=== PATIENT | female | born 1975 | race Caucasian/White ===

== ENCOUNTER 2020-07-11 10:58 | Emergency (ER) | payer MEDICAID, SELFPAY ==
[2020-07-11] VITALS (7 sets, daily range): BP systolic 117–132; BP diastolic 52–77; PULSE 75–90; RESP 16–20; TEMP 36.4; O2SAT 99–100; BMI 29.1
--- NOTE | 2020-07-11 | ECG_ITS ---
Test Reason : DIZZY Blood Pressure : / mmHG Vent. Rate : 084 BPM Atrial Rate : 084 BPM P-R Int : 188 ms QRS Dur : 066 ms QT Int : 346 ms P-R-T Axes : 070 021 049 degrees QTc Int : 408 ms Normal sinus rhythm Normal ECG When compared with ECG of 08-JUN-2010 14:21, No significant changes seen Referred By: Yvonne Partida Electronically Signed By:HIREN PIZARRO
--- NOTE | 2020-07-11 11:24 | CT_ITS ---
EXAMINATION: CT HEAD WITHOUT CONTRAST CLINICAL INFORMATION: Sudden onset dizziness. COMPARISON: None TECHNIQUE: Contiguous axial imaging was performed from the skull base to vertex without intravenous administration of contrast. This CT examination was performed using dose optimization techniques as appropriate, variously including the following: *Automated exposure control *Adjustment of mA and/or kV according to patient size (this includes techniques or standardized protocols for targeted exams where dose is matched to indication/reason for exam; i.e. extremities or head) *Use of iterative reconstruction technique DLP: 611 mGy-cm FINDINGS: There is no evidence of acute intracranial hemorrhage or territorial infarction. No abnormal mass effect or midline shift is seen. Cain to white matter differentiation is well preserved. No extra-axial fluid collections are identified. The ventricles are normal in size. There is no abnormal attenuation within the brain parenchyma. The osseous structures and soft tissues are normal. The mastoid air cells and visualized portions of the paranasal sinuses are well aerated. CT/CT head/brain wo con IMPRESSION: No acute intracranial pathology.
--- NOTE | 2020-07-11 11:54 | ED.GENADULT ---
HPI - General Adult General Chief complaint: Weakness Stated complaint: SYNCOPAL EPISODE W/FALL, DIZZY @ THIS TIME Time Seen by Provider: 07/11/20 11:15 Source: patient Mode of arrival: ambulatory Limitations: no limitations History of Present Illness HPI narrative: Patient comes to the emergency room complaining feeling weak and dizzy. Patient states that she was feeling completely normal prior to arrival, she was doing her laundry, had a very sudden onset of dizziness and leg weakness. Patient states her legs gave out. Patient complaining of blurry vision as well. Prior to this incident, patient denied any chest pain, no shortness of breath. Patient states this is the 1st time that it happens. Patient states that trying to stand up makes her very dizzy Related Data Previous Rx's Medication Instructions Recorded meclizine 25 mg PO TID PRN #10 tab 07/11/20 Allergies Allergy/AdvReac Type Severity Reaction Status Date / Time codeine [CODEINE] Allergy Severe VOMITING, Verified 07/11/20 11:14 FEVER,CHILLS Review of Systems Review of Systems: Constitutional : No Weight loss, No Fever, No Chills, No Night Sweats, No Fatigue, No Malaise ENT/Mouth : No Hearing loss, No Ear Pain, No Nasal Congestion, No Sinus Pain, No Hoarseness, No sore throat, No Rhinorrhea, No Swallowing Difficulty Eyes: No Eye Pain, No Swelling, No Redness, No Foreign Body, No Discharge, No Vision Changes Cardiovascular : No Chest Pain, No SOB, No Dyspnea on Exertion, No Orthopnea, No Edema, No Palpitations Respiratory : No Cough, No Sputum, No Wheezing, No Smoke Exposure, No Dyspnea Gastrointestinal : No Nausea, No Vomiting, No Diarrhea, No Constipation, No abdominal Pain, No Hematochezia, No Melena Genitourinary : no irregular bleeding, No Dysuria, No Urinary Frequency, No Hematuria, No Urinary Incontinence, No Urgency, No Flank Pain, No Urinary Flow Changes, No Hesitancy Musculoskeletal : No joint pain, No Myalgias, No Joint Swelling Skin : No Skin Lesions, No rash Neuro : Patient complaining of bilateral leg weakness, no numbness or tingling, complaining of dizziness, room spinning, states is unable to stand Psych : No Anxiety/Panic, No Depression, No SI/HI/AH/VH, No Social Issues, Heme/Lymph: No Bruising, No Bleeding,No Lymphadenopathy Endocrine : No Polyuria, No Polydipsia, No Temperature Intolerance [facility] Past Medical History Medical History Anxiety Asthma Bipolar disorder Chronic post-traumatic stress disorder (PTSD) Depression Hypertension No known health problems Social History Social History Smoking Status: Current every day smoker Use of substances other than those prescribed or required for medical reasons: Yes Substance Use Type: Marijuana Advance Directives: No Advance Directives Information Provided: Yes Physical Exam Vital Signs: Vital Signs: Last Vital Signs Temp 97.5 F 07/11/20 11:09 Pulse 75 07/11/20 16:00 Resp 16 07/11/20 16:00 BP 117/61 07/11/20 16:00 Pulse Ox 99 07/11/20 16:00 Body Mass Index 29.1 Appearance: Alert. Oriented X3. No acute distress. Eyes: Pupils equal, round and reactive to light, no nystagmus ENT: Pharynx normal. Neck: Normal inspection. Neck supple. No lymph nodes noted. No crepitus CVS: Normal heart rate and rhythm. Pulses normal. Normal S1 and S2 Respiratory: No respiratory distress. Breath sounds normal. No Wheezing. No rales Abdomen: Soft and nontender. No rigidity. No distention. good BS x4 Skin: Skin warm and dry. Normal skin color. Normal skin turgor. Extremities: No lower extremity edema. No lower extremity edema. No Lacerations. No Rash Neuro: Oriented X 3. No motor deficit. No sensory deficit. Moving all extermities. No slurred speech, no nystagmus, patient is able to sit in bed with good truncal stability, patient can not stand for a few seconds, then she falls back in bed stating that she is dizzy, no nystagmus observed Course Course Course Narrative: I discussed the CT scan and MRI with the patient, that her vision is now at baseline,now she is able to walk with steady gait. Patient no longer feeling dizzy. Orthostatics were negative. Medical Decision Making Lab Data Result diagrams: 07/11/20 11:47 07/11/20 11:47 Labs: Lab Results 07/11/20 07/11/20 07/11/20 Range/Units 11:47 11:47 11:47 WBC 4.1 L (4.8-10.8) X10*3/uL RBC 3.81 L (4.20-5.50) X10*6/uL Hgb 12.2 (12.0-16.0) g/dl Hct 37.3 (37-47) % MCV 97.9 (80-98) fL MCH 32.0 (27.0-33.0) pg MCHC 32.7 (31.0-35.0) g/dl RDW 12.9 (11.0-16.0) % Plt Count 229 (160-400) X10*3/uL MPV 10.9 (9.4-12.3) fL Immature Gran % (Auto) 0.2 (0.0-0.4) % Neut % (Auto) 52.2 (45-73) % Lymph % (Auto) 30.8 (20-40) % Snyder % (Auto) 11.9 H (2-11) % Eos % (Auto) 3.9 (0-4) % Baso % (Auto) 1.0 (0-2) % Lymph # (Auto) 1.3 (1.2-4.9) X10*3/uL Snyder # (Auto) 0.5 (0.1-1.2) X10*3/uL Eos # (Auto) 0.2 (0.0-0.4) X10*3/uL Baso # (Auto) 0.0 (0.0-0.2) X10*3/uL Abs Immat Gran (auto) 0.01 (0.00-0.03) X10*3/uL Absolute Neuts (auto) 2.2 (2.0-8.3) X10*3/uL Absolute Nucleated RBC 0.000 (0.0-0.012) X10*3/uL Nucleated RBC % (auto) 0.0 (0.0-0.2) /100WBC Sodium 139 (135-145) mmol/L Potassium 4.5 (3.3-5.1) mmol/l Chloride 105 (96-108) mmol/L Carbon Dioxide 27 (22-29) mmol/L Anion Gap 12 (12-20) BUN 8 L (9-16) mg/dL Creatinine 0.73 (0.5-1.4) mg/dL Estim Creat Clear Calc 100.8 Estimated GFR > 60 Random Glucose 84 (60-115) mg/dL Calcium 8.9 (8.4-10.2) mg/dL Urine Color Urine Appearance Urine pH (5.0-8.0) Ur Specific [place] (1.005-1.025) Urine Protein (NEG-TRACE) MG/DL Urine Glucose (UA) (NEG) MG/DL Urine Ketones (NEG) MG/DL Urine Blood (NEG) Urine Nitrite (NEG) Ur Leukocyte Esterase (NEG) Urine Test (NEGATIVE) Urine Opiates Screen (Not Detect) Ur Barbiturates Screen (Not Detect) Ur Phencyclidine Scrn (Not Detect) Ur Amphetamines Screen (Not Detect) U Benzodiazepines Scrn (Not Detect) Urine Cocaine Screen (Not Detect) U Marijuana (THC) Screen (Not Detect) Ethyl Alcohol < 10 mg/dL 07/11/20 07/11/20 Range/Units 13:27 13:28 WBC (4.8-10.8) X10*3/uL RBC (4.20-5.50) X10*6/uL Hgb (12.0-16.0) g/dl Hct (37-47) % MCV (80-98) fL MCH (27.0-33.0) pg MCHC (31.0-35.0) g/dl RDW (11.0-16.0) % Plt Count (160-400) X10*3/uL MPV (9.4-12.3) fL Immature Gran % (Auto) (0.0-0.4) % Neut % (Auto) (45-73) % Lymph % (Auto) (20-40) % Snyder % (Auto) (2-11) % Eos % (Auto) (0-4) % Baso % (Auto) (0-2) % Lymph # (Auto) (1.2-4.9) X10*3/uL Snyder # (Auto) (0.1-1.2) X10*3/uL Eos # (Auto) (0.0-0.4) X10*3/uL Baso # (Auto) (0.0-0.2) X10*3/uL Abs Immat Gran (auto) (0.00-0.03) X10*3/uL Absolute Neuts (auto) (2.0-8.3) X10*3/uL Absolute Nucleated RBC (0.0-0.012) X10*3/uL Nucleated RBC % (auto) (0.0-0.2) /100WBC Sodium (135-145) mmol/L Potassium (3.3-5.1) mmol/l Chloride (96-108) mmol/L Carbon Dioxide (22-29) mmol/L Anion Gap (12-20) BUN (9-16) mg/dL Creatinine (0.5-1.4) mg/dL Estim Creat Clear Calc Estimated GFR Random Glucose (60-115) mg/dL Calcium (8.4-10.2) mg/dL Urine Color YELLOW Urine Appearance CLOUDY Urine pH 6.5 (5.0-8.0) Ur Specific [place] 1.015 (1.005-1.025) Urine Protein NEG (NEG-TRACE) MG/DL Urine Glucose (UA) NEG (NEG) MG/DL Urine Ketones NEG (NEG) MG/DL Urine Blood NEG (NEG) Urine Nitrite NEG (NEG) Ur Leukocyte Esterase NEG (NEG) Urine Test NEGATIVE (NEGATIVE) Urine Opiates Screen Not Detected (Not Detect) Ur Barbiturates Screen Not Detected (Not Detect) Ur Phencyclidine Scrn Not Detected (Not Detect) Ur Amphetamines Screen Not Detected (Not Detect) U Benzodiazepines Scrn Not Detected (Not Detect) Urine Cocaine Screen POSITIVE H (Not Detect) U Marijuana (THC) Screen POSITIVE H (Not Detect) Ethyl Alcohol mg/dL Imaging Data CT scan - head: Radiologist's impression: TECHNIQUE: Contiguous axial imaging was performed from the skull base to vertex without intravenous administration of contrast. This CT examination was performed using dose optimization techniques as appropriate, variously including the following: *Automated exposure control *Adjustment of mA and/or kV according to patient size (this includes techniques or standardized protocols for targeted exams where dose is matched to indication/reason for exam; i.e. extremities or head) *Use of iterative reconstruction technique DLP: 611 mGy-cm FINDINGS: There is no evidence of acute intracranial hemorrhage or territorial infarction. No abnormal mass effect or midline shift is seen. Cain to white matter differentiation is well preserved. No extra-axial fluid collections are identified. The ventricles are normal in size. There is no abnormal attenuation within the brain parenchyma. The osseous structures and soft tissues are normal. The mastoid air cells and visualized portions of the paranasal sinuses are well aerated. CT/CT head/brain wo con IMPRESSION: No acute intracranial pathology. Brain MRI: Radiologist's impression: There is no hydrocephalus, extra-axial surface collection, or herniation. There is mild chronic microangiopathy. The major flow voids at the skull base are preserved. There is no acute infarct on diffusion-weighted imaging. There is no intracranial hemorrhage on the gradient recalled echo acquisition. The midline structures are normal. The cerebellar tonsils are normally positioned. The cerebellum and brainstem are normal. The craniocervical junction is normal. Osseous marrow signal intensity is homogenous. The visualized soft tissues are unremarkable. MR/MR head/brain wo con IMPRESSION: - No acute intracranial findings. No acute infarcts. - There is mild chronic microangiopathy. ECG Data Attestation: I personally reviewed and interpreted this ECG as follows: (Sinus rhythm, heart rate 84, QTC 408, no ST segment depressions or elevations, no T-wave inversions) Discharge Plan Discharge Clinical Impression: Dizziness, Change in vision, Bilateral leg weakness, Substance abuse Patient Disposition: Home, Self-Care Instructions: Dizziness (ED) Additional Instructions: Please stop using cocaine and marijuana. Please follow-up with your primary care physician tomorrow. If you have any worsening or new symptoms, please return to the emergency room or call 911 Prescriptions: New meclizine 25 mg tablet 25 mg PO TID PRN (Reason: dizziness) Qty: 10 RF: 0
[2020-07-11 11:59] LABS: MANUAL DIFF FLAG NO
[2020-07-11 12:08] LABS: Eosinophils Absolute Auto 0.2 X10*3/uL (0.0-0.4); Eosinophils Percent Auto 3.9 % (0-4); Hematocrit 37.3 % (37-47); Hemoglobin 12.2 g/dl (12.0-16.0); Imm Gran Abs Auto 0.01 X10*3/uL (0.00-0.03); Imm Gran Pct Auto 0.2 % (0.0-0.4); Lymphocytes Absolute Auto 1.3 X10*3/uL (1.2-4.9); Lymphocytes Percent Auto 30.8 % (20-40); Mean Corpuscular HGB Conc 32.7 g/dl (31.0-35.0); Mean Corpuscular Volume 97.9 fL (80-98); Mean Platelet Volume 10.9 fL (9.4-12.3); Monocytes Absolute Auto 0.5 X10*3/uL (0.1-1.2); Monocytes Percent Auto 11.9 % (2-11); Neutrophils Absolute Auto 2.2 X10*3/uL (2.0-8.3); Neutrophils Percent Auto 52.2 % (45-73); Platelet Count 229 X10*3/uL (160-400); Red Blood Count 3.81 X10*6/uL (4.20-5.50); Red Cell Distribution Width 12.9 % (11.0-16.0); White Blood Count 4.1 X10*3/uL (4.8-10.8)
[2020-07-11 12:24] LABS: Anion Gap 12 (12-20); Blood Urea Nitrogen 8 mg/dL (9-16); Calcium 8.9 mg/dL (8.4-10.2); Carbon Dioxide 27 mmol/L (22-29); Chloride 105 mmol/L (96-108); Creatinine Clr Calc Pharmacy 100.8; Estimated Glomerular Filt Rate > 60; Glucose Random 84 mg/dL (60-115); Potassium 4.5 mmol/l (3.3-5.1); Sodium 139 mmol/L (135-145)
[2020-07-11 12:36] LABS: Ethanol < 10 mg/dL
[2020-07-11] MEDS: Meclizine HCl 25 MG TABLET 50 MG PO (13:33)
[2020-07-11] MEDS: diazePAM 2 MG TABLET PO (13:34)
--- NOTE | 2020-07-11 13:35 | PC.NURSE ---
Pt ambulatory to bathroom with this RN, noted to be unsteady on feet, Dr Partida notified. Plan for MRI
[2020-07-11 13:38] LABS: Glucose Urine UA NEG (NEG); Leukocyte Esterase Urine NEG (NEG); Nitrite Urine NEG (NEG); PH 6.5 (5.0-8.0); Specific Gravity - Urine 1.015 (1.005-1.025); Urine Blood NEG (NEG); Urine Ketones NEG (NEG); Urine Protein NEG (NEG-TRACE)
[2020-07-11 13:40] LABS: Appearance Urine CLOUDY; Color Urine YELLOW
[2020-07-11 13:41] LABS: UPreg QC Valid YES; Urine Pregnancy NEGATIVE (NEGATIVE)
--- NOTE | 2020-07-11 13:46 | MR_ITS ---
MRI OF THE BRAIN WITHOUT IV CONTRAST INDICATION: Acute blurry vision and dizziness. Rule out [employer] stroke. COMPARISON: CT head performed earlier the same day. TECHNIQUE: Multiplanar multisequence MR imaging of the brain was obtained without IV contrast. FINDINGS: There is no hydrocephalus, extra-axial surface collection, or herniation. There is mild chronic microangiopathy. The major flow voids at the skull base are preserved. There is no acute infarct on diffusion-weighted imaging. There is no intracranial hemorrhage on the gradient recalled echo acquisition. The midline structures are normal. The cerebellar tonsils are normally positioned. The cerebellum and brainstem are normal. The craniocervical junction is normal. Osseous marrow signal intensity is homogenous. The visualized soft tissues are unremarkable. MR/MR head/brain wo con IMPRESSION: - No acute intracranial findings. No acute infarcts. - There is mild chronic microangiopathy.
[2020-07-11 14:06] LABS: Amphetamine Screen Urine Not Detected (Not Detect); Barbiturates, Urine Not Detected (Not Detect); Benzodiazepines Screen Urine Not Detected (Not Detect); Cannabinoid Screen Urine POSITIVE (Not Detect); Cocaine Screen Urine POSITIVE (Not Detect); Opiate Screen Urine Not Detected (Not Detect); Phencyclidine Screen Urine Not Detected (Not Detect)
== END 2020-07-11 16:58 | disposition home or self-care (01) ==
PROVIDERS: Emergency Provider Emergency Medicine
DX: R42 Dizziness and giddiness (principal); H53.9 Unspecified visual disturbance; R53.1 Weakness; F14.10 Cocaine abuse, uncomplicated; I10 Essential (primary) hypertension
CPT/HCPCS: 36415; 70450; 70551; 80048; 80307; 80320; 81003; 81025; 85025; 93005; 99284; 99285

== ENCOUNTER 2023-03-17 14:05 | Outpatient (REF) | payer MEDICAID, SELFPAY ==
[2023-03-18 09:28] LABS: Syphilis Screen Nonreactive (Nonreactive)
[2023-03-18 09:36] LABS: HBS Num1 26.82 mIU/mL (0-7.99); HBc Num1 0.08 S/CO (0.00-0.79); HBsAGNum1 0.41 S/CO (0.00-0.99); HIV AB/AG Nonreactive (Nonreactive); HIV Num 1 0.05 S/CO (0.00-0.99); Hepatitis B Core Antibody Nonreactive (Nonreactive); Hepatitis B Surface Antigen Negative (Negative); ~Hepatitis B Surface Antibody REACTIVE (Nonreactive)
[2023-03-18 09:40] LABS: ~HepC Num1 0.17 S/CO (0.00-0.79); ~Hepatitis C Antibody Nonreactive (Nonreactive)
[2023-03-18 12:35] LABS: BV Int Neg Control Negative (Negative); BV Int Pos Control Positive (Positive)
== END 2023-03-17 14:06 | disposition home or self-care (01) ==
LOC: HO.HHCL 14:05
PROVIDERS: Visit Provider Student in an Organized Health Care Education/Training Program
DX: Z11.3 Encounter for screening for infections with a predominantly sexual mode of transmission (principal); Z11.4 Encounter for screening for human immunodeficiency virus [HIV]
CPT/HCPCS: 0353U; 36415; 86704; 86706; 86780; 86803; 87340; 87389; 87480; 87510; 87660

== ENCOUNTER 2023-04-20 10:10 | Outpatient (REF) | payer MEDICAID, SELFPAY ==
[2023-04-20 12:21] LABS: Alanine Aminotransferase 8 U/L (0-31); Albumin Level 3.8 g/dL (3.5-5.0); Alkaline Phosphatase 53 U/L (39-117); Anion Gap 15 (12-20); Aspartate Amino Transferase 15 U/L (5-31); Bilirubin Total 0.2 mg/dL (0.0-1.0); Blood Urea Nitrogen 9 mg/dL (9-16); Calcium 9.3 mg/dL (8.4-10.2); Carbon Dioxide 25 mmol/L (22-29); Chloride 103 mmol/L (96-108); Cholesterol 163 mg/dL (<200); Estimated Glomerular Filt Rate > 60; Glucose Random 93 mg/dL (60-115); HDL Cholesterol 42 mg/dL (>40); LDL Cholesterol Calculated 105 mg/dL (<100); Potassium 4.1 mmol/L (3.3-5.1); Sodium 139 mmol/L (135-145); Total Protein 7.2 g/dL (6.5-8.0); Triglycerides 81 mg/dL (<150)
[2023-04-20 12:53] LABS: Estimated Average Glucose 100 mg/dL; Hemoglobin A1c % 5.1 % (<6.0)
== END 2023-04-20 10:11 | disposition home or self-care (01) ==
LOC: HO.HHCL 10:10
PROVIDERS: Visit Provider Nurse Practitioner Primary Care
DX: Z00.00 Encounter for general adult medical examination without abnormal findings (principal); Z13.220 Encounter for screening for lipoid disorders; Z13.1 Encounter for screening for diabetes mellitus
CPT/HCPCS: 36415; 80053; 80061; 83036

== ENCOUNTER 2024-04-12 11:52 | Outpatient (REF) | payer MEDICAID, SELFPAY ==
[2024-04-12 12:59] LABS: MANUAL DIFF FLAG NO
[2024-04-12 13:13] LABS: Basophils Percent Auto 0.8 % (0-2); Eosinophils Absolute Auto 0.2 X10*3/uL (0.0-0.4); Eosinophils Percent Auto 3.3 % (0-4); Hematocrit 39.2 % (37.0-47.0); Hemoglobin 12.9 g/dl (12.0-16.0); Imm Gran Abs Auto 0.01 X10*3/uL (0.00-0.03); Imm Gran Pct Auto 0.2 % (0.0-0.4); Lymphocytes Absolute Auto 1.5 X10*3/uL (1.2-4.9); Lymphocytes Percent Auto 30.1 % (20-40); Mean Corpuscular HGB Conc 32.9 g/dl (31.0-35.0); Mean Corpuscular Hemoglobin 30.1 pg (27.0-33.0); Mean Corpuscular Volume 91.6 fL (80.0-98.0); Mean Platelet Volume 10.8 fL (9.4-12.3); Monocytes Absolute Auto 0.5 X10*3/uL (0.1-1.2); Neutrophils Absolute Auto 2.7 x10*3/uL (2.0-8.3); Neutrophils Percent Auto 54.6 % (45-73); Platelet Count 327 X10*3/uL (160-400); Red Blood Count 4.28 X10*6/uL (4.20-5.50); Red Cell Distribution Width 13.8 % (11.0-16.0); White Blood Count 4.9 X10*3/uL (4.8-10.8)
[2024-04-12 14:14] LABS: Alanine Aminotransferase 11 U/L (0-31); Albumin Level 4.2 g/dL (3.5-5.0); Alkaline Phosphatase 73 U/L (39-117); Anion Gap 11 (12-20); Aspartate Amino Transferase 15 U/L (5-31); Bilirubin Total 0.3 mg/dL (0.0-1.0); Blood Urea Nitrogen 12 mg/dL (9-16); Calcium 9.7 mg/dL (8.4-10.2); Carbon Dioxide 24 mmol/L (22-29); Chloride 108 mmol/L (96-108); Estimated Glomerular Filt Rate > 60; Glucose Random 110 mg/dL (60-115); Potassium 4.1 mmol/L (3.3-5.1); Sodium 139 mmol/L (135-145); Total Protein 7.6 g/dL (6.5-8.0)
[2024-04-12 14:37] LABS: TSH reflex Free T4 1.74 uIU/mL (0.32-4.0)
[2024-04-15 18:22] LABS: EBV-VCA IgM Ab <36.00 U/mL
== END 2024-04-12 11:53 | disposition home or self-care (01) ==
LOC: HO.HHCL 11:52
PROVIDERS: Referring Provider Nurse Practitioner Primary Care; Visit Provider Family Medicine
DX: R59.0 Localized enlarged lymph nodes (principal); R63.5 Abnormal weight gain; K21.9 Gastro-esophageal reflux disease without esophagitis; R00.0 Tachycardia, unspecified
CPT/HCPCS: 36415; 80053; 84443; 85025; 86664; 86665

== ENCOUNTER 2024-10-01 11:15 | Observation (INO) | payer MEDICAID, SELFPAY ==
[2024-10-01] VITALS (9 sets, daily range): BP systolic 102–136; BP diastolic 54–98; PULSE 104–134; RESP 16–23; TEMP 36.7–37.5; O2SAT 98–100; BMI 36.9
--- NOTE | 2024-10-01 | ECG_ITS ---
Test Reason : chest pain Blood Pressure : */* mmHG Vent. Rate : 127 BPM Atrial Rate : 127 BPM P-R Int : 162 ms QRS Dur : 68 ms QT Int : 284 ms P-R-T Axes : 69 13 51 degrees QTcB Int : 412 ms Sinus tachycardia Otherwise normal ECG When compared with ECG of 11-Jul-2020 11:22, Aberrant conduction is no longer Present Vent. rate has increased by 43 bpm Referred By: Generic ED Physician Electronically Signed By: CHRIS TRUJILLO MD
--- NOTE | ~2024-10-01 | CT_ITS ---
CLINICAL HISTORY: Shortness of breath, chest pain, right sided infil CT angiography of the chest with IV contrast. 3D/MIP post processing reconstructions were performed. COMPARISON: None FINDINGS: There are no intraluminal filling defects to suggest pulmonary embolism. No evidence of right heart strain. No supraclavicular or axillary lymphadenopathy. Ascending aorta and main pulmonary artery are normal in caliber. No pericardial effusion. Normal esophagus. Prominent right hilar and mediastinal lymph nodes, likely reactive. Small left pleural effusion. Minimal linear atelectasis versus scarring along the lung bases bilaterally. Ground-glass and consolidation within the right upper lobe posteriorly Trachea and central airways are clear. No significant bronchial wall thickening. No bronchiectasis. Visualized portions of the upper abdomen are unremarkable. Mild spondylosis. No fracture identified. IMPRESSION: 1. No evidence of pulmonary embolism. 2. Right upper lobe pneumonia. 3. Trace left pleural effusion. This document has been electronically signed by: Rasta Womack MD on 10/01/2024 17:32:33
--- NOTE | ~2024-10-01 | XR_ITS ---
EXAMINATION: XR CHEST 2 VIEWS HISTORY: Cough, chest pain, shortness of breath, R/O pneumo COMPARISON: Comparison is made with the prior examination dated 04/30/2018. FINDINGS: PA and lateral views of the chest are submitted. There is a masslike opacity in the right midlung zone which may represent pneumonia. The left lung is clear. There is no pleural effusion, pneumothorax, or pulmonary vascular congestion. The heart is normal in size. The bones are intact. XR/XR chest 2V IMPRESSION: Masslike opacity in the right midlung zone which may represent pneumonia. Follow-up after treatment is recommended to document resolution and exclude a mass. Electronically signed by: Vincent Collier MD 10/01/2024 01:06 PM EDT
--- NOTE | 2024-10-01 12:09 | ED_ITS ---
HPI - Asthma General Chief Complaint: Asthma Stated Complaint: SOB,CP Time Seen by Provider: 10/01/24 11:40 Source: patient Mode of arrival: EMS Limitations: no limitations History of Present Illness ED Provider: Dr. Nato Bernstein HPI Narrative: 49-year-old female with a history of asthma, anxiety, bipolar disorder, mood disorder who presents emergency department for evaluation of chest pain, cough, fever, sore throat, nausea, vomiting shortness of breath and dyspnea on exertion x4 days. Patient states that 4 days prior she developed a fever and rhinorrhea. She states she was had a sore throat. The patient has had a cough which is nonproductive. She had nausea and multiple episodes of vomiting per day with no vomiting today. Patient states that her asthma flared up and she was using her Symbicort inhaler 8 times a day with no relief. The patient states that she did not use her albuterol inhaler since she did not think that it was helping her shortness of breath. Patient was seen at an urgent care clinic and sent to the emergency department for further evaluation. Related Data Home Medications ?Medication ?Instructions ?Recorded ?Confirmed albuterol sulfate 90 mcg/actuation 2 puff inhalation Q4-6H PRN 10/01/24 10/01/24 aerosol inhaler (Ventolin HFA) Shortness Of Breath Or Wheezing benztropine 0.5 mg tablet 0.5 mg PO BID 10/01/24 10/01/24 budesonide-formoterol HFA 160 2 puff inhalation BID 10/01/24 10/01/24 mcg-4.5 mcg/actuation aerosol inhaler (Symbicort) cetirizine 10 mg tablet 10 mg PO DAILY 10/01/24 10/01/24 clonazepam 1 mg tablet 1 mg PO BID PRN Anxiety 10/01/24 10/01/24 lamotrigine 200 mg tablet 200 mg PO BID 10/01/24 10/01/24 montelukast 10 mg tablet 10 mg PO DAILY 10/01/24 10/01/24 omeprazole 20 mg capsule,delayed 20 mg PO DAILY 10/01/24 10/01/24 release omeprazole 20 mg capsule,delayed 20 mg PO DAILY@1630 PRN Acid Reflux 10/01/24 10/01/24 release quetiapine 400 mg tablet 400 mg PO BID 10/01/24 10/01/24 Allergies Allergy/AdvReac Type Severity Reaction Status Date / Time codeine [CODEINE] Allergy Severe VOMITING, Verified 10/01/24 11:36 FEVER,CHILLS Review of Systems 2 Review of Systems: Yes all other systems are reviewed and are negative [facility] Past Medical History [facility] Narrative: Social history: The patient smokes 3 cigarettes per day. She denies alcohol use. She smokes marijuana once or twice a day Medical History Bipolar disorder Hypertension Chronic post-traumatic stress disorder (PTSD) Depression Anxiety Asthma No known health problems Social History Social History Substance Use Type: Marijuana Advance Directives: No Advance Directives Information Provided: Yes Do you have a plan to hurt others: No Plan Physical Exam 2 Vital Signs: Vital Signs: Last Vital Signs Temp 98.1 F 10/01/24 18:14 Pulse 121 H 10/01/24 20:00 Resp 22 H 10/01/24 20:00 BP 106/54 L 10/01/24 20:00 Pulse Ox 98 10/01/24 20:00 O2 Del Method Room Air 10/01/24 20:00 BMI result Body Mass Index 36.9 Vital signs revealed an elevated heart rate of 127, elevated respiratory rate of 23 normal O2 saturation at 100% on room air Exam: General: Awake, alert in no distress Head: Normocephalic, atraumatic EENT: PERRL, Lids normal, sclera normal, conjunctiva normal, nose normal , ears normal, throat without erythema or exudates Neck: Supple, no adenopathy Lung: breath sounds symmetric, diffuse wheezing with no rales and no rhonchi Chest: symmetric movement, nontender Heart: regular rate and rhythm, normal S1, S2 no murmurs or rubs Abdomen: soft, mild, diffuse abdominal tenderness, nondistended, normal bowel sounds Back: no vertebral tenderness, no CVAT Extremities: no deformities, moves all extremities symmetrically Neuro: Awake, alert, oriented, normal speech, cranial nerves intact, moves all extremities symmetrically Psych: Pleasant, cooperative Medications Administered Generic Name Dose Route Start Last Admin Trade Name Freq PRN Reason Stop Dose Admin Benztropine Mesylate 0.5 mg 10/01/24 21:00 10/01/24 20:56 Benztropine Mesylate 0.5 Mg Tablet PO 0.5 mg BID CALDERON Administration Guaifenesin 10 ml 10/01/24 19:00 10/01/24 19:17 Guaifenesin 200 Mg/10 Ml 10 Ml Liquid PO 10 ml Q4H CALDERON Administration Lamotrigine 200 mg 10/01/24 21:00 10/01/24 20:56 Lamotrigine 100 Mg Tablet PO 200 mg BID CALDERON Administration Quetiapine Fumarate 400 mg 10/01/24 21:00 10/01/24 20:56 Quetiapine Fumarate 400 Mg Tablet PO 400 mg BID CALDERON Administration Discontinued Medications Generic Name Dose Route Start Last Admin Trade Name Freq PRN Reason Stop Dose Admin Ceftriaxone Sodium 1 gm 10/01/24 15:56 10/01/24 16:14 Ceftriaxone Sodium 1 Gm Vial IVPUSH 10/01/24 15:57 1 gm ONCE ONE Administration Albuterol Sulfate 2.5 mg/ 0 mg 10/01/24 12:59 10/01/24 13:02 Albuterol/Ipratropium 3 ml INHALE 10/01/24 13:00 5 dose ONCE ONE Administration Sodium Chloride 1,000 mls @ 999 mls/hr 10/01/24 12:23 10/01/24 16:59 Ns IV 10/01/24 13:23 Infused .Q1H1M STA Infusion Azithromycin 500 mg/ Sodium 250 mls @ 125 mls/hr 10/01/24 15:56 10/01/24 18:30 Chloride IV 10/01/24 17:55 Infused ONCE ONE Infusion Sodium Chloride 1,000 mls @ 999 mls/hr 10/01/24 15:56 10/01/24 18:45 Ns IV 10/01/24 16:56 Infused .Q1H1M STA Infusion Iohexol 65 ml 10/01/24 16:49 10/01/24 16:49 Iohexol 350 Mg/Ml 100 Ml Infus..Btl IV 10/01/24 16:50 65 ml ONCE ONE Administration Ketorolac Tromethamine 15 mg 10/01/24 12:32 10/01/24 12:44 Ketorolac Tromethamine 15 Mg/Ml Vial IVPUSH 10/01/24 12:33 15 mg ONCE STA Administration Levalbuterol HCl 2.5 mg 10/01/24 15:54 10/01/24 15:57 Levalbuterol Hcl 1.25 Mg/3 Ml Vial.Neb INHALE 10/01/24 15:55 2.5 mg ONCE ONE Administration Lorazepam 1 mg 10/01/24 16:58 10/01/24 17:17 Lorazepam 2 Mg/Ml Vial IVPUSH 10/01/24 16:59 1 mg STAT STA Administration Methylprednisolone Sodium Succinate 125 mg 10/01/24 12:23 10/01/24 12:44 Methylprednisolone Sod Succ 125 Mg/2 Ml Vial IVPUSH 10/01/24 12:24 125 mg ONCE ONE Administration Ondansetron HCl 4 mg 10/01/24 12:23 10/01/24 12:44 Ondansetron Hcl 4 Mg/2 Ml Vial IVPUSH 10/01/24 12:24 4 mg ONCE ONE Administration Medical Decision Making Medical Decision Making MDM Narrative: 49-year-old female with a history of asthma, anxiety, bipolar disorder, mood disorder who presents emergency department for evaluation of chest pain, cough, fever, sore throat, nausea, vomiting, shortness of breath and dyspnea on exertion x4 days. she has been using her Symbicort 8 times a day and not using her albuterol inhaler. Patient was seen in urgent care clinic and sent to emergency department for evaluation. 15:59 Differential diagnosis: Includes but is not limited to viral syndrome, COVID- 19, influenza, RSV, pneumonia, bronchitis, asthma exacerbation, volume depletion, dehydration, anemia, electrolyte abnormalities Course: 15:59 My independent interpretation patient's laboratory evaluation as follows: Elevated WBC 96615. Normocytic anemia with an H&H of 10 and 31.6. Low sodium 133. Low bicarb 99. Elevated bilirubin 1.8-I do not think this is related to infection. LFTs were normal. Troponin was below detectable limits. Quantitative beta-hCG was 10 but I do not think this is represents . Two-view chest x-ray revealed right lower lobe infiltrate which has a masslike appearance. My impression is that her presentation and infiltrate or more consistent with pneumonia however I ordered a CT pulmonary angiogram PE protocol to further evaluate the infiltrate and a rule out pulmonary embolism as the cause of this infiltrate. Given this finding, I ordered blood cultures x2, lactic acid and a 2 L of normal saline IV, ceftriaxone 1 g IV and azithromycin 500 mg IV. Patient was initially treated with Solu-Medrol 125 mg IV, Zofran 4 mg IV, Toradol 15 mg IV, normal saline x1 L and albuterol 5 mg with ipratropium 0.5 mg nebulized. On re-evaluation the patient still has diffuse wheezing therefore I ordered a 2nd nebulizer-of Xopenex secondary to her tachycardia. 17:34 Patient was lactic acid was 2.0 which is normal. COVID-19, influenza and RSV tests were negative. CT scan PE protocol revealed no pulmonary embolism in her mass. Radiology noted a small left pleural effusion minimal linear atelectasis versus scarring along the lung bases bilaterally ground-glass and consolidation within the right upper lobe posteriorly. Given her asthma exacerbation and her pneumonia, the patient will be admitted for further treatment. I did discuss patient was presentation and findings with the covering hospitalist, Dr. Cooper and the patient will be admitted to the hospitalist service for further treatment. Admission/Observation Consideration of admission/observation: Escalation of care including admission/observation considered (Yes) Lab Data MDM Lab Attestation statement: I reviewed the patient's lab results. 10/01/24 12:44 10/01/24 12:44 Labs: Lab Results 10/01/24 10/01/24 Range/Units 12:44 16:07 WBC 20.2 H (4.8-10.8) X10*3/uL RBC 3.64 L (4.20-5.50) X10*6/uL Hgb 10.7 L (12.0-16.0) g/dl Hct 31.6 L (37.0-47.0) % MCV 86.8 (80.0-98.0) fL MCH 29.4 (27.0-33.0) pg MCHC 33.9 (31.0-35.0) g/dl RDW 13.5 (11.0-16.0) % Plt Count 301 (160-400) X10*3/uL MPV 10.5 (9.4-12.3) fL Immature Gran % (Auto) 1.1 H (0.0-0.4) % Neut % (Auto) 88.7 H (45-73) % Lymph % (Auto) 3.1 L (20-40) % [place] % (Auto) 6.6 (2-11) % Eos % (Auto) 0.1 (0-4) % Baso % (Auto) 0.4 (0-2) % Lymph # (Auto) 0.6 L (1.2-4.9) X10*3/uL [place] # (Auto) 1.3 H (0.1-1.2) X10*3/uL Eos # (Auto) 0.0 (0.0-0.4) X10*3/uL Baso # (Auto) 0.1 (0.0-0.2) X10*3/uL Abs Immat Gran (auto) 0.23 H (0.00-0.03) X10*3/uL Absolute Neuts (auto) 17.9 H (2.0-8.3) x10*3/uL Absolute Nucleated RBC 0.000 (0.0-0.012) X10*3/uL Nucleated RBC % (auto) 0.0 (0.0-0.2) /100WBC Sodium 133 L (135-145) mmol/L Potassium 3.8 (3.3-5.1) mmol/L Chloride 104 (96-108) mmol/L Carbon Dioxide 19 L (22-29) mmol/L Anion Gap 14 (12-20) BUN 11 (9-16) mg/dL Creatinine 0.73 (0.5-1.4) mg/dL Estim Creat Clear Calc 108.0 Estimated GFR > 60 Random Glucose 96 (60-115) mg/dL Lactic Acid 2.0 (0.5-2.0) mmol/L Calcium 9.2 (8.4-10.2) mg/dL Total Bilirubin 1.8 H (0.0-1.0) mg/dL AST 20 (5-31) U/L ALT 8 (0-31) U/L Alkaline Phosphatase 107 (39-117) U/L Troponin I High Sens < 2.7 (<3.5-17.0) ng/L Total Protein 7.1 (6.5-8.0) g/dL Albumin 3.5 (3.5-5.0) g/dL Beta HCG, Quant 10 mIU/mL Influenza Type A (PCR) NEGATIVE (Negative) Influenza Type B (PCR) NEGATIVE (Negative) RSV RNA Qual (PCR) NEGATIVE (Negative) SARS-CoV-2 RNA (RT-PCR) NEGATIVE (Negative) Independent Interpretation I performed an independent interpretation of an: EKG and Plain X-Ray Interpretation: My interpretation patient's 12 EKG done on 10/01/2024 at 11:47 hours is as follows: Sinus tachycardia with a rate of 127, normal GA interval, QRS duration QTC interval, no ST segment elevation, no ST segment depression, no PACs, no PVCs, no significant T-wave abnormalities My interpretation patient's two view chest x-ray is as follows: Right-sided infiltrate Radiology Impression Discussion of test interpretation with radiology: I have reviewed the radiologist's reading. Radiologist Impression: CT angiography of the chest with IV contrast. 3D/MIP post processing reconstructions were performed. COMPARISON: None FINDINGS: There are no intraluminal filling defects to suggest pulmonary embolism. No evidence of right heart strain. No supraclavicular or axillary lymphadenopathy. Ascending aorta and main pulmonary artery are normal in caliber. No pericardial effusion. Normal esophagus. Prominent right hilar and mediastinal lymph nodes, likely reactive. Small left pleural effusion. Minimal linear atelectasis versus scarring along the lung bases bilaterally. Ground-glass and consolidation within the right upper lobe posteriorly Trachea and central airways are clear. No significant bronchial wall thickening. No bronchiectasis. Visualized portions of the upper abdomen are unremarkable. Mild spondylosis. No fracture identified. IMPRESSION: 1. No evidence of pulmonary embolism. 2. Right upper lobe pneumonia. 3. Trace left pleural effusion. This document has been electronically signed by: Rasta Womack MD on 10/01/2024 17:32:33 Chronic Conditions Patient?s care impacted by: Other (Asthma) Critical Care Time Critical Care Time Critical Care Time: Yes Total Critical Care Time: 55 Attestation: Critical Care: The patient was critically ill with a high probability of imminent or life threatening deterioration. I spent greater than 30 minutes of discontinuous time evaluating the patient,delivering critical care at the bedside, discussing and evaluating pertinent data with consultants. Critical care time does not include time spent performing separately billable procedures or teaching. Total time spent performing critical care was 55 minutes. Discharge Plan Discharge Clinical Impression: Pneumonia Qualifiers: Pneumonia type: due to unspecified organism Laterality: right Lung location: u pper lobe of lung Qualified Code(s): J18.9 - Pneumonia, unspecified organism Asthma exacerbation Qualifiers: Asthma severity: moderate Asthma persistence: persistent Qualified Code(s): J 45.41 - Moderate persistent asthma with (acute) exacerbation Patient Disposition: Admitted As Inpatient
[2024-10-01] MEDS: 0.9 % Sodium Chloride 1,000 ML 999 ML IV ×2 (12:43→16:14)
[2024-10-01] MEDS: Ketorolac Tromethamine 15 MG/ML VIAL IVPUSH (12:44)
[2024-10-01] MEDS: ondansetron HCL 4 MG/2 ML VIAL IVPUSH (12:44)
[2024-10-01] MEDS: methylPREDNISolone Sod Succ 125 MG/2 ML VIAL IVPUSH (12:44)
[2024-10-01 12:51] LABS: MANUAL DIFF FLAG NO
[2024-10-01 12:53] LABS: Basophils Absolute Auto 0.1 X10*3/uL (0.0-0.2); Basophils Percent Auto 0.4 % (0-2); Eosinophils Percent Auto 0.1 % (0-4); Hematocrit 31.6 % (37.0-47.0); Hemoglobin 10.7 g/dl (12.0-16.0); Imm Gran Abs Auto 0.23 X10*3/uL (0.00-0.03); Imm Gran Pct Auto 1.1 % (0.0-0.4); Lymphocytes Absolute Auto 0.6 X10*3/uL (1.2-4.9); Lymphocytes Percent Auto 3.1 % (20-40); Mean Corpuscular HGB Conc 33.9 g/dl (31.0-35.0); Mean Corpuscular Hemoglobin 29.4 pg (27.0-33.0); Mean Corpuscular Volume 86.8 fL (80.0-98.0); Mean Platelet Volume 10.5 fL (9.4-12.3); Monocytes Absolute Auto 1.3 X10*3/uL (0.1-1.2); Monocytes Percent Auto 6.6 % (2-11); Neutrophils Absolute Auto 17.9 x10*3/uL (2.0-8.3); Neutrophils Percent Auto 88.7 % (45-73); Platelet Count 301 X10*3/uL (160-400); Red Blood Count 3.64 X10*6/uL (4.20-5.50); Red Cell Distribution Width 13.5 % (11.0-16.0); White Blood Count 20.2 X10*3/uL (4.8-10.8)
[2024-10-01] MEDS: Albuterol Sulfate 2.5 MG, Albuterol/Iprat 2.5/0.5MG 3 ML 3 ML INHALE (13:02)
[2024-10-01 13:15] LABS: Alanine Aminotransferase 8 U/L (0-31); Albumin Level 3.5 g/dL (3.5-5.0); Alkaline Phosphatase 107 U/L (39-117); Anion Gap 14 (12-20); Aspartate Amino Transferase 20 U/L (5-31); Bilirubin Total 1.8 mg/dL (0.0-1.0); Blood Urea Nitrogen 11 mg/dL (9-16); Calcium 9.2 mg/dL (8.4-10.2); Carbon Dioxide 19 mmol/L (22-29); Chloride 104 mmol/L (96-108); Estimated Glomerular Filt Rate > 60; Glucose Random 96 mg/dL (60-115); Potassium 3.8 mmol/L (3.3-5.1); Sodium 133 mmol/L (135-145); Total Protein 7.1 g/dL (6.5-8.0)
[2024-10-01 13:16] LABS: HCG Quantitative 10 mIU/mL; Troponin-I High Sensitivity < 2.7 ng/L (<3.5-17.0)
[2024-10-01] MEDS: levalbuterol HCL 1.25 MG/3 ML VIAL.NEB 2.5 MG INHALE (15:57)
--- NOTE | 2024-10-01 16:00 | PC.NURSE ---
CXR shows a Masslike opacity in the right midlung zone which may represent pneumonia. Provider aware and blood cx x 2 otained. IVF's and abx therapy initiated. CT of the chest ordered.
[2024-10-01] MEDS: Azithromycin 500 MG in 0.9 % Sodium Chloride 250 ML 125 MG IV (16:14)
[2024-10-01] MEDS: cefTRIAXone sodium 1 GM VIAL IVPUSH (16:14)
[2024-10-01] MEDS: iohexoL 350 MG/ML 100 ML INFUS..BTL 65 ML IV (16:49)
[2024-10-01 17:03] LABS: Influenza A PCR NEGATIVE (Negative); Influenza B PCR NEGATIVE (Negative); Resp Syncy Virus RNA Qual PCR NEGATIVE (Negative); SARS COV2 PCR INHOUSE NEGATIVE (Negative)
[2024-10-01] MEDS: LORazepam 2 MG/ML VIAL 1 MG IVPUSH (17:17)
--- NOTE | 2024-10-01 17:57 | PHA.MEDREC ---
Addendum entered by Sylvia Coleman RPh 10/01/24 18:07: [facility] reviewed Original Note: Pharmacy Consult ? Medication Reconciliation Pharmacy has completed the medication reconciliation. Spoke with patient to confirm. She takes the second omeprazole prn and clonazepam is prn. She did not take medications today or yesterday. No OTC use.
--- NOTE | 2024-10-01 18:49 | PM.IMHP ---
History of Present Illness Date of Service: 10/01/24 Attending physician on admission: Bryan Cooper Chief Complaint: sob, chest pain 49-year-old female with history of unspecified asthma, anxiety, bipolar disorder presented to the ED earlier today for evaluation pleuritic chest pain, shortness of breath/wheezing, dry cough as well as nausea and vomiting. She states starting Monday, she had subjective fever with sweats and chills that has persisted. She has also had nausea and vomiting with decreased p.o. intake since then. This morning, she woke up with a dry cough and associated shortness of breath and wheezing with pleuritic chest pain around 05:00. Since then, she has been overusing her Symbicort, reports taking 20 puffs today. States she does not have an albuterol inhaler due to insurance reasons so she thought this would be inadequate replacement. She has been tremulous since with palpitations. Denies any known sick contacts. No recent travel. Since arrival, has been tachycardic to the 120s, sinus rhythm and intermittently tachypneic. Otherwise vital signs stable. She has a leukocytosis of 20.2. Renal function and electrolyte levels are normal except for sodium of 133, CO2 19. Negative for COVID-19, RSV, influenza. CTA of the chest shows right upper lobe pneumonia and trace left-sided pleural effusion but no PE. In the ED, has received IV Zithromax, ceftriaxone, lorazepam, DuoNeb, levalbuterol, and methylprednisolone. Review of Systems Review of Systems: Yes all other systems are reviewed and are negative [facility] Medical History Bipolar disorder Hypertension Chronic post-traumatic stress disorder (PTSD) Depression Anxiety Asthma No known health problems Social History Substance Use Type: Marijuana Advance Directives: No Advance Directives Information Provided: Yes Do you have a plan to hurt others: No Plan Meds Allergies Allergy/AdvReac Type Severity Reaction Status Date / Time codeine [CODEINE] Allergy Severe VOMITING, Verified 10/01/24 11:36 FEVER,CHILLS Home Medications ?Medication ?Instructions ?Recorded ?Confirmed ?Last Taken ?Type albuterol sulfate 90 mcg/actuation 2 puff inhalation Q4-6H PRN 10/01/24 10/01/24 Unknown History aerosol inhaler (Ventolin HFA) Shortness Of Breath Or Wheezing benztropine 0.5 mg tablet 0.5 mg PO BID 10/01/24 10/01/24 Unknown History budesonide-formoterol HFA 160 2 puff inhalation BID 10/01/24 10/01/24 Unknown History mcg-4.5 mcg/actuation aerosol inhaler (Symbicort) cetirizine 10 mg tablet 10 mg PO DAILY 10/01/24 10/01/24 Unknown History clonazepam 1 mg tablet 1 mg PO BID PRN Anxiety 10/01/24 10/01/24 Unknown History lamotrigine 200 mg tablet 200 mg PO BID 10/01/24 10/01/24 Unknown History montelukast 10 mg tablet 10 mg PO DAILY 10/01/24 10/01/24 Unknown History omeprazole 20 mg capsule,delayed 20 mg PO DAILY 10/01/24 10/01/24 Unknown History release omeprazole 20 mg capsule,delayed 20 mg PO DAILY@1630 PRN Acid Reflux 10/01/24 10/01/24 Unknown History release quetiapine 400 mg tablet 400 mg PO BID 10/01/24 10/01/24 Unknown History Physical Exam Vital Signs and Narrative: Vital Signs: Last Vital Signs Temp 98.1 F 10/01/24 18:14 Pulse 113 H 10/01/24 18:14 Resp 16 10/01/24 18:14 BP 113/57 L 10/01/24 18:14 Pulse Ox 99 10/01/24 18:14 O2 Del Method Room Air 10/01/24 18:14 BMI result Body Mass Index 36.9 Constitutional - Awake and Alert, No apparent distress Eyes - PERRLA, EOMI Cardiovascular - S1S2, RRR, No edema Respiratory - Normal lung expansion, Normal respiratory effort, No respiratory distress, diminished bilaterally, otherwise CTA Gastrointestinal - NT / ND; +BS; No rebound or guarding Extremities - no calf tenderness bilaterally, no swelling Skin - Warm/Dry Neurological - Alert & oriented x3, very tremulous at rest Psychological - Appropriate affect Results Labs 10/01/24 12:44 10/01/24 12:44 Labs: Laboratory Results - last 24 hr 10/01/24 10/01/24 12:44 16:07 MCV 86.8 MCH 29.4 MCHC 33.9 RDW 13.5 Plt Count 301 MPV 10.5 Immature Gran % (Auto) 1.1 H Neut % (Auto) 88.7 H Lymph % (Auto) 3.1 L [place] % (Auto) 6.6 Eos % (Auto) 0.1 Baso % (Auto) 0.4 Lymph # (Auto) 0.6 L [place] # (Auto) 1.3 H Eos # (Auto) 0.0 Baso # (Auto) 0.1 Abs Immat Gran (auto) 0.23 H Absolute Neuts (auto) 17.9 H Absolute Nucleated RBC 0.000 Nucleated RBC % (auto) 0.0 Anion Gap 14 Estim Creat Clear Calc 108.0 Estimated GFR > 60 Random Glucose 96 Lactic Acid 2.0 Calcium 9.2 Total Bilirubin 1.8 H AST 20 ALT 8 Alkaline Phosphatase 107 Total Protein 7.1 Albumin 3.5 Beta HCG, Quant 10 Influenza Type A (PCR) NEGATIVE Influenza Type B (PCR) NEGATIVE RSV RNA Qual (PCR) NEGATIVE SARS-CoV-2 RNA (RT-PCR) NEGATIVE Imaging Radiologist's Impressions: Impressions Chest X-Ray 10/01/24 12:45 IMPRESSION: Masslike opacity in the right midlung zone which may represent pneumonia. Follow-up after treatment is recommended to document resolution and exclude a mass. Electronically signed by: Vincent Collier MD 10/01/2024 01:06 PM EDT RP Assessment and Plan (1) Pneumonia: Qualifiers: Laterality: right Lung location: upper lobe of lung Pneumonia type: due to unspecified organism Qualified Code(s): J18.9 - Pneumonia, unspecified organism Status: Acute (2) Asthma exacerbation: Qualifiers: Asthma persistence: persistent Asthma severity: moderate Qualified Code(s): J45.41 - Moderate persistent asthma with (acute) exacerbation Status: Acute Plan 49-year-old female with history of unspecified asthma, anxiety, bipolar disorder to be observed for community-acquired pneumonia with mild asthma exacerbation and unintentional Symbicort overdose Right upper lobe pneumonia CTA chest negative for PE but shows right upper lobe infiltrate IV ceftriaxone and azithromycin Leukocytosis 20.2 likely multifactorial in the setting of infection as well as reactive related to vomiting. Tachycardia due to Symbicort overdose and albuterol use. Tachypnea likely related to anxiety and has resolved. No sepsis/severe sepsis Symptomatic management with guaifenesin Follow CBC Symbicort overdose-unintentional Continue cardiac monitoring Hold Symbicort Unspecified asthma with mild exacerbation No ongoing wheezing Continue levalbuterol. Hold albuterol due to tachycardia Hold any further systemic steroids at this time Hold Symbicort Will need prescription for albuterol Bipolar disorder Continue home medications DVT prophylaxis-SCPs, early ambulation Full code Quality Stroke Does the patient have a stroke diagnosis?: No VTE Prior VTE?: No VTE Risk Level:: Medical - moderate - high VTE Device Contraindication: Treatment Not Indicated VTE Drug Contraindication: N/A - Med Ordered
[2024-10-01] MEDS: guaiFENesin 200 MG/10 ML 10 ML LIQUID PO ×2 (19:17→22:49)
[2024-10-01 19:47] LABS: VBG Base Excess -5.4 mmol/L; VBG HCO3 16 mmol/L (22-26); VBG pCO2 21 mmHg; VBG pH 7.47 (7.32-7.43); VBG pO2 191 mmHg
[2024-10-01 19:55] LABS: Venous Blood Gas Refer to POC result
[2024-10-01] MEDS: lamoTRIgine 100 MG TABLET 200 MG PO (20:56)
[2024-10-01] MEDS: QUEtiapine Fumarate 400 MG TABLET PO (20:56)
[2024-10-01] MEDS: Benztropine Mesylate 0.5 MG TABLET PO (20:56)
[2024-10-01] MEDS: 0.9 % Sodium Chloride Flush 3 ML SYRINGE IVFLUSH (23:20)
[2024-10-02 02:41] VITALS: BP 102/62; PULSE 128; RESP 19; TEMP 36.8; O2SAT 97
--- NOTE | 2024-10-02 02:41 | PC.NURSE ---
Patient remains tachy HR 101-128, BP 102/61, O2 Sat 96-97% RA. Patient denies chest pain, heart palpitations, SOB. Dr. Serrano informed, no new orders at this time.
[2024-10-02] MEDS: guaiFENesin 200 MG/10 ML 10 ML LIQUID PO ×2 (02:42→07:40)
[2024-10-02 05:50] LABS: Basophils Percent Auto 0.2 % (0-2); Eosinophils Absolute Auto 0.1 X10*3/uL (0.0-0.4); Eosinophils Percent Auto 0.4 % (0-4); Hematocrit 28.5 % (37.0-47.0); Hemoglobin 9.9 g/dl (12.0-16.0); Imm Gran Abs Auto 0.23 X10*3/uL (0.00-0.03); Lymphocytes Absolute Auto 0.9 X10*3/uL (1.2-4.9); MANUAL DIFF FLAG SCAN; Mean Corpuscular HGB Conc 34.7 g/dl (31.0-35.0); Mean Corpuscular Hemoglobin 29.7 pg (27.0-33.0); Mean Corpuscular Volume 85.6 fL (80.0-98.0); Mean Platelet Volume 10.4 fL (9.4-12.3); Monocytes Absolute Auto 1.1 X10*3/uL (0.1-1.2); Monocytes Percent Auto 4.9 % (2-11); Neutrophils Absolute Auto 20.4 x10*3/uL (2.0-8.3); Neutrophils Percent Auto 89.5 % (45-73); Platelet Count 316 X10*3/uL (160-400); Red Blood Count 3.33 X10*6/uL (4.20-5.50); Red Cell Distribution Width 13.8 % (11.0-16.0); SCAN SMEAR FLAG 1; White Blood Count 22.7 X10*3/uL (4.8-10.8)
[2024-10-02 06:06] LABS: Anion Gap 12 (12-20); Blood Urea Nitrogen 9 mg/dL (9-16); Calcium 9.2 mg/dL (8.4-10.2); Carbon Dioxide 19 mmol/L (22-29); Chloride 114 mmol/L (96-108); Creatinine Clr Calc Pharmacy 121.3; Estimated Glomerular Filt Rate > 60; Glucose Random 121 mg/dL (60-115); Potassium 3.8 mmol/L (3.3-5.1); Sodium 141 mmol/L (135-145)
[2024-10-02 06:24] LABS: SLIDE REVIEW VERIFIED
[2024-10-02] MEDS: Omeprazole 20 MG CAPSULE.DR PO (06:47)
[2024-10-02 07:07] VITALS: BP 110/66; PULSE 114; RESP 16; TEMP 36.6; O2SAT 96
[2024-10-02 07:08] VITALS: TEMP 36.6
[2024-10-02] MEDS: Benztropine Mesylate 0.5 MG TABLET PO (07:38)
[2024-10-02] MEDS: Loratadine 10 MG TABLET PO (07:38)
[2024-10-02] MEDS: lamoTRIgine 100 MG TABLET 200 MG PO (07:39)
[2024-10-02] MEDS: QUEtiapine Fumarate 400 MG TABLET PO (07:39)
[2024-10-02] MEDS: Montelukast Sodium 10 MG TABLET PO (07:39)
[2024-10-02] MEDS: 0.9 % Sodium Chloride Flush 3 ML SYRINGE IVFLUSH (07:39)
--- NOTE | 2024-10-02 08:24 | HO.PM.IMPN ---
Subjective Subjective Date of Service: 10/02/24 Interval History: Seen and examined this morning Interval history: Physical Exam Vital Signs: Vital Signs: Last Vital Signs Temp 98 F 10/02/24 07:08 Pulse 114 H 10/02/24 07:07 Resp 16 10/02/24 07:07 BP 110/66 10/02/24 07:07 Pulse Ox 96 10/02/24 07:07 O2 Del Method Room Air 10/02/24 07:07 BMI result Body Mass Index 36.9 Constitutional - Awake and Alert, No apparent distress Eyes - PERRLA, EOMI Cardiovascular - S1S2, RRR, No edema Respiratory - Normal lung expansion, Normal respiratory effort, No respiratory distress, CTA bilaterally Gastrointestinal - NT / ND; +BS; No rebound or guarding - No CVA tenderness Extremities - no calf tenderness bilaterally, no swelling Musculoskeletal - Normal inspection, normal ROM Skin - Warm/Dry Neurological - Alert & oriented x3, CN II-XII in tact, 5/5 strength BUE and BLE Psychological - Appropriate affect Objective Data Active Medications Acetaminophen (Acetaminophen 325 Mg Tablet) 650 mg PO Q6H PRN PRN Reason: Pain, Mild 1-3,fever,headache Benzonatate (Benzonatate 100 Mg Capsule) 200 mg PO TID PRN PRN Reason: Cough Benztropine Mesylate (Benztropine Mesylate 0.5 Mg Tablet) 0.5 mg PO BID [facility] Last Admin: 10/02/24 07:38 Dose: 0.5 mg Documented By: АЛЕКСАНДР Calcium Carbonate (Calcium Carbonate 750 Mg Tab.Chew) 750 mg PO Q4H PRN PRN Reason: Heartburn Ceftriaxone Sodium (Ceftriaxone Sodium 1 Gm Vial) 1 gm IVPUSH Q24H [facility] Clonazepam (Clonazepam 1 Mg Tablet) 1 mg PO BID PRN PRN Reason: Anxiety Fluticasone/Vilanterol (Fluticasone/Vilanterol 200/25 Blst.W.Dev) 1 puff INHALE RDAILY [facility] Guaifenesin (Guaifenesin 200 Mg/10 Ml 10 Ml Liquid) 10 ml PO Q4H [facility] Last Admin: 10/02/24 07:40 Dose: 10 ml Documented By: АЛЕКСАНДР Azithromycin 500 mg/ Sodium (Chloride) 250 mls @ 125 mls/hr IV Q24H [facility] Lamotrigine (Lamotrigine 100 Mg Tablet) 200 mg PO BID [facility] Last Admin: 10/02/24 07:39 Dose: 200 mg Documented By: АЛЕКСАНДР Levalbuterol HCl (Levalbuterol Hcl 1.25 Mg/3 Ml Vial.Rodney) 1.25 mg INHALE Q3H PRN PRN Reason: Shortness of Breath/Wheezing Loratadine (Loratadine 10 Mg Tablet) 10 mg PO DAILY [facility] Last Admin: 10/02/24 07:38 Dose: 10 mg Documented By: АЛЕКСАНДР Magnesium Hydroxide (Milk Of Magnesia 30 Ml Oral.Susp) 30 ml PO DAILY PRN PRN Reason: Constipation Melatonin (Melatonin 3 Mg Tablet) 6 mg PO BEDTIME PRN PRN Reason: Insomnia Montelukast Sodium (Montelukast Sodium 10 Mg Tablet) 10 mg PO DAILY [facility] Last Admin: 10/02/24 07:39 Dose: 10 mg Documented By: АЛЕКСАНДР Omeprazole (Omeprazole 20 Mg Capsule.) 20 mg PO DAILY@0630 [facility] Last Admin: 10/02/24 06:47 Dose: 20 mg Documented By: CAMILA Omeprazole (Omeprazole 20 Mg Capsule.) 20 mg PO DAILY@1630 PRN PRN Reason: Acid Reflux Ondansetron HCl (Ondansetron Hcl 4 Mg/2 Ml Vial) 4 mg IVPUSH Q8H PRN PRN Reason: Nausea and Vomiting Quetiapine Fumarate (Quetiapine Fumarate 400 Mg Tablet) 400 mg PO BID [facility] Last Admin: 10/02/24 07:39 Dose: 400 mg Documented By: АЛЕКСАНДР Sodium Chloride (0.9 % Sodium Chloride Flush 3 Ml Syringe) 3 ml IVFLUSH QSHIFT [facility] Last Admin: 10/02/24 07:39 Dose: 3 ml Documented By: АЛЕКСАНДР Labs 10/02/24 05:29 10/02/24 05:29 Labs: Laboratory Results - last 24 hr 10/01/24 10/01/24 10/01/24 12:44 16:07 19:31 MCV 86.8 MCH 29.4 MCHC 33.9 RDW 13.5 Plt Count 301 MPV 10.5 Immature Gran % (Auto) 1.1 H Neut % (Auto) 88.7 H Lymph % (Auto) 3.1 L [place] % (Auto) 6.6 Eos % (Auto) 0.1 Baso % (Auto) 0.4 Lymph # (Auto) 0.6 L [place] # (Auto) 1.3 H Eos # (Auto) 0.0 Baso # (Auto) 0.1 Abs Immat Gran (auto) 0.23 H Absolute Neuts (auto) 17.9 H Absolute Nucleated RBC 0.000 Nucleated RBC % (auto) 0.0 Smear Tech's Comments VBG pH 7.47 H VBG pCO2 21 VBG pO2 191 VBG HCO3 16 L VBG O2 Saturation 100.0 VBG Base Excess -5.4 Anion Gap 14 Estim Creat Clear Calc 108.0 Estimated GFR > 60 Random Glucose 96 Lactic Acid 2.0 Calcium 9.2 Total Bilirubin 1.8 H AST 20 ALT 8 Alkaline Phosphatase 107 Total Protein 7.1 Albumin 3.5 Beta HCG, Quant 10 Hold Yellow Top Influenza Type A (PCR) NEGATIVE Influenza Type B (PCR) NEGATIVE RSV RNA Qual (PCR) NEGATIVE SARS-CoV-2 RNA (RT-PCR) NEGATIVE 10/01/24 10/02/24 19:55 05:29 MCV 85.6 MCH 29.7 MCHC 34.7 RDW 13.8 Plt Count 316 MPV 10.4 Immature Gran % (Auto) 1.0 H Neut % (Auto) 89.5 H Lymph % (Auto) 4.0 L [place] % (Auto) 4.9 Eos % (Auto) 0.4 Baso % (Auto) 0.2 Lymph # (Auto) 0.9 L [place] # (Auto) 1.1 Eos # (Auto) 0.1 Baso # (Auto) 0.0 Abs Immat Gran (auto) 0.23 H Absolute Neuts (auto) 20.4 H Absolute Nucleated RBC 0.000 Nucleated RBC % (auto) 0.0 Smear Tech's Comments VERIFIED VBG pH VBG pCO2 VBG pO2 VBG HCO3 VBG O2 Saturation VBG Base Excess Anion Gap 12 Estim Creat Clear Calc 121.3 Estimated GFR > 60 Random Glucose 121 H Lactic Acid Calcium 9.2 Total Bilirubin AST ALT Alkaline Phosphatase Total Protein Albumin Beta HCG, Quant Hold Yellow Top See Note Influenza Type A (PCR) Influenza Type B (PCR) RSV RNA Qual (PCR) SARS-CoV-2 RNA (RT-PCR) Assessment and Plan Plan 49-year-old female with history of unspecified asthma, anxiety, bipolar disorder to be observed for community-acquired pneumonia with mild asthma exacerbation and unintentional Symbicort overdose Right upper lobe pneumonia CTA chest negative for PE but shows right upper lobe infiltrate IV ceftriaxone and azithromycin Leukocytosis 20.2 likely multifactorial in the setting of infection as well as reactive related to vomiting. Tachycardia due to Symbicort overdose and albuterol use. Tachypnea likely related to anxiety and has resolved. No sepsis/severe sepsis Symptomatic management with guaifenesin Follow CBC Symbicort overdose-unintentional Continue cardiac monitoring Hold Symbicort Unspecified asthma with mild exacerbation No ongoing wheezing Continue levalbuterol. Hold albuterol due to tachycardia Hold any further systemic steroids at this time Hold Symbicort Will need prescription for albuterol Bipolar disorder Continue home medications DVT prophylaxis-SCPs, early ambulation Full code Quality Stroke Does the patient have a stroke diagnosis?: No VTE Prior VTE?: No VTE Risk Level:: Medical - moderate - high VTE Device Contraindication: Treatment Not Indicated VTE Drug Contraindication: N/A - Med Ordered
[2024-10-02] MEDS: Fluticasone/Vilanterol 200/25 BLST.W.DEV 1 PUFF INHALE (11:19)
[2024-10-02 11:21] VITALS: PULSE 114; RESP 20; O2SAT 97
[2024-10-02 11:57] VITALS: BP 133/73; PULSE 106; RESP 16; O2SAT 99
--- NOTE | 2024-10-02 13:23 | MHC.CM.PN ---
CM met with Patient at bedside, in the ED, and addressed RODRIGUEZ with her, providing Patient with the original and a copy will be placed on the chart. Patient lives alone in an apartment and she is functionally independent. Home self care is Patient's goal and CM has initiated and will follow for dc planning. PCP is Dr. Sofiya Corona and Patient's Son's Father will transport to home at time of dc.
--- NOTE | 2024-10-02 13:47 | P.DS_ITS ---
DS: Providers Provider Date of Service: 10/02/24 Date of admission: 10/01/24 18:46 Date of discharge: 10/02/24 Primary care physician: Sofiya Corona NP Admitting clinician: Missy Titus Attending physician on admission: Bryan Cooper Attending physician on discharge: Michael Torres Discharging clinician: Missy Titus DS: Diagnosis Discharge Diagnosis (1) Pneumonia: Status: Acute (2) Asthma exacerbation: Status: Acute DS: Summary Hospital Course Hospital Course: HPI on admission by this provider 10/01: 49-year-old female with history of unspecified asthma, anxiety, bipolar disorder presented to the ED earlier today for evaluation pleuritic chest pain, shortness of breath/wheezing, dry cough as well as nausea and vomiting. She states starting Monday, she had subjective fever with sweats and chills that has persisted. She has also had nausea and vomiting with decreased p.o. intake since then. This morning, she woke up with a dry cough and associated shortness of breath and wheezing with pleuritic chest pain around 05:00. Since then, she has been overusing her Symbicort, reports taking 20 puffs today. States she does not have an albuterol inhaler due to insurance reasons so she thought this would be inadequate replacement. She has been tremulous since with palpitations. Denies any known sick contacts. No recent travel. Since arrival, has been tachycardic to the 120s, sinus rhythm and intermittently tachypneic. Otherwise vital signs stable. She has a leukocytosis of 20.2. Renal function and electrolyte levels are normal except for sodium of 133, CO2 19. Negative for COVID-19, RSV, influenza. CTA of the chest shows right upper lobe pneumonia and trace left-sided pleural effusion but no PE. In the ED, has received IV Zithromax, ceftriaxone, lorazepam, DuoNeb, levalbuterol, and methylprednisolone. Hospital course: Hospital course uneventful. Patient observed overnight due to Symbicort overdose resulting in significant trend nurse and tachycardia which was unintentional. Patient was also treated for community-acquired pneumonia without any hypoxia or sepsis. She also had a mild asthma exacerbation. She was treated with IV ceftriaxone and azithromycin as well as levalbuterol p.r.n.. She reports significant improvement in symptoms and tachycardia has si gnificantly improved with heart rates 90s-100. She will be discharged on Augmentin 875 mg b.i.d. x5 days. No indication for steroids at this time, lungs are clear on day of discharge. She is sent a refill for albuterol inhaler and advised to use this only as needed for shortness of breath or wheezing. Advised to take Symbicort only as prescribed. Advised this is not a rescue inhaler. Smoking cessation advised. She declines NRT. Follow up with PCP Time spent discussing smoking cessation with patient: 3 to 10 minutes Status at Discharge Functional status at discharge: independent ambulation Overall status at discharge: patient is progressing back to baseline Time Attestation Discharge Coordination Time (in mins): 41 Quality: Safe Use of Opioids Does Pt have an Active Cancer Diagnosis on the Problem List?: No Quality: Stroke Does the patient have a stroke diagnosis?: No Physical Exam Vital Signs: Vital Signs: Last Vital Signs Temp 98 F 10/02/24 07:08 Pulse 106 H 10/02/24 11:57 Resp 16 10/02/24 11:57 BP 133/73 10/02/24 11:57 Pulse Ox 99 10/02/24 11:57 O2 Del Method Room Air 10/02/24 11:57 BMI result Body Mass Index 36.9 Constitutional - Awake and Alert, No apparent distress Eyes - PERRLA, EOMI Cardiovascular - S1S2, RRR, No edema Respiratory - Normal lung expansion, Normal respiratory effort, No respiratory distress, CTA bilaterally Extremities - no calf tenderness bilaterally, no swelling Skin - Warm/Dry Neurological - Alert & oriented x3 Psychological - Appropriate affect DS: Data Data Completed and Pending Labs on day of discharge: Laboratory Results - last 24 hr 10/01/24 10/01/24 10/01/24 16:07 19:31 19:55 WBC RBC Hgb Hct MCV MCH MCHC RDW Plt Count MPV Immature Gran % (Auto) Neut % (Auto) Lymph % (Auto) [place] % (Auto) Eos % (Auto) Baso % (Auto) Lymph # (Auto) [place] # (Auto) Eos # (Auto) Baso # (Auto) Abs Immat Gran (auto) Absolute Neuts (auto) Absolute Nucleated RBC Nucleated RBC % (auto) Smear Tech's Comments VBG pH 7.47 H VBG pCO2 21 VBG pO2 191 VBG HCO3 16 L VBG O2 Saturation 100.0 VBG Base Excess -5.4 Sodium Potassium Chloride Carbon Dioxide Anion Gap BUN Creatinine Estim Creat Clear Calc Estimated GFR Random Glucose Lactic Acid 2.0 Calcium Hold Yellow Top See Note Influenza Type A (PCR) NEGATIVE Influenza Type B (PCR) NEGATIVE RSV RNA Qual (PCR) NEGATIVE SARS-CoV-2 RNA (RT-PCR) NEGATIVE 10/02/24 05:29 WBC 22.7 H RBC 3.33 L Hgb 9.9 L Hct 28.5 L MCV 85.6 MCH 29.7 MCHC 34.7 RDW 13.8 Plt Count 316 MPV 10.4 Immature Gran % (Auto) 1.0 H Neut % (Auto) 89.5 H Lymph % (Auto) 4.0 L [place] % (Auto) 4.9 Eos % (Auto) 0.4 Baso % (Auto) 0.2 Lymph # (Auto) 0.9 L [place] # (Auto) 1.1 Eos # (Auto) 0.1 Baso # (Auto) 0.0 Abs Immat Gran (auto) 0.23 H Absolute Neuts (auto) 20.4 H Absolute Nucleated RBC 0.000 Nucleated RBC % (auto) 0.0 Smear Tech's Comments VERIFIED VBG pH VBG pCO2 VBG pO2 VBG HCO3 VBG O2 Saturation VBG Base Excess Sodium 141 Potassium 3.8 Chloride 114 H Carbon Dioxide 19 L Anion Gap 12 BUN 9 Creatinine 0.65 Estim Creat Clear Calc 121.3 Estimated GFR > 60 Random Glucose 121 H Lactic Acid Calcium 9.2 Hold Yellow Top Influenza Type A (PCR) Influenza Type B (PCR) RSV RNA Qual (PCR) SARS-CoV-2 RNA (RT-PCR) Discharge Plan Discharge Anticipated Discharge Date/Time: 10/02/24 09:52 Patient Disposition: Home, Self-Care Discharge Diagnosis: Pneumonia, mild asthma exacerbation, symbicort overdose (unintentional) Referrals: Sofiya Corona, [facility]CE[facility]PATCHER [Primary Care Provider] - 1 Week Discharge Medications: New ProAir RespiClick 90 mcg/actuation aerosol powdr breath activated 2 inh inhalation Q4H PRN (Reason: shortness of breath or wheezing) Qty: 1 0RF amoxicillin-pot clavulanate 875-125 mg tablet 1 tab PO BID Qty: 10 0RF Continued benztropine 0.5 mg tablet 0.5 mg PO BID lamotrigine 200 mg tablet 200 mg PO BID cetirizine 10 mg tablet 10 mg PO DAILY clonazepam 1 mg tablet 1 mg PO BID PRN (Reason: Anxiety) omeprazole 20 mg capsule,delayed release(DR/EC) 20 mg PO DAILY@1630 PRN (Reason: Acid Reflux) montelukast 10 mg tablet 10 mg PO DAILY albuterol sulfate [Ventolin HFA] 90 mcg/actuation HFA aerosol inhaler 2 puff INHALATION Q4-6H PRN (Reason: Shortness Of Breath Or Wheezing) quetiapine 400 mg tablet 400 mg PO BID budesonide-formoterol [Symbicort] 160-4.5 mcg/actuation HFA aerosol inhaler 2 puff INHALATION BID omeprazole 20 mg capsule,delayed release(DR/EC) 20 mg PO DAILY Discharge Orders: Discharge Order (Routine); Ordered 10/02/24 Ordered By: Missy Titus Diet: Advance to usual diet Activity on Discharge: As tolerated Stand Alone Forms: Patient Portal Discharge page Print Language: Sinhala Care Plan Goals: Continue antibiotics with cefuroxime 500mg twice daily x5 days and azithromycin 250 mg daily x4 days. Lungs clear. No indication for steroids at this time. Prescription sent for ProAir RespiClick to see if you benefit from this inhaler as opposed to the HFA. I am unsure if this is covered by your insurance. You may need a prior authorization from your primary care doctor. Please only take Symbicort as prescribed. This is not a rescue inhaler Health Concerns: Community-acquired pneumonia Asthma exacerbation Unintentional Symbicort overdose Plan of Treatment: Complete course of antibiotics as above Follow-up PCP STOP SMOKING Assessment: See above. See discharge summary Discharge Date/Time: 10/02/24 16:43
--- NOTE | 2024-10-02 14:13 | MHC.CM.PN ---
Patient has been medically cleared for dc to home today, self care.
== END 2024-10-02 16:43 | disposition home or self-care (01) ==
LOC: HO.ED 17:39 → HO.EDOVER 18:53 → HO.IMC 10-02 08:42 → HO.EDOVER 10-02 09:56
PROVIDERS: Admitting Provider Physician Assistant; Emergency Provider Emergency Medicine Emergency Medical Services; PCP Nurse Practitioner Primary Care; Visit Provider Physician Assistant
DX: J18.9 Pneumonia, unspecified organism (principal); J45.41 Moderate persistent asthma with (acute) exacerbation; R07.9 Chest pain, unspecified; R00.0 Tachycardia, unspecified; F41.1 Generalized anxiety disorder; F31.9 Bipolar disorder, unspecified; R50.9 Fever, unspecified; I10 Essential (primary) hypertension; F17.200 Nicotine dependence, unspecified, uncomplicated; Z79.899 Other long term (current) drug therapy; Z71.6 Tobacco abuse counseling
CPT/HCPCS: 0241U; 36415; 71046; 71275; 80048; 80053; 82803; 83605; 84484; 84702; 85025; 87040; 93005; 94640; 96361; 96365; 96366; 96375; 99221; 99285; J0456; J0696; J1885; J2060; J2405; J2919; Q9967

== ENCOUNTER → 2024-10-01 11:47 | Outpatient (BNV) | payer MEDICAID, SELFPAY | PROVIDERS: Emergency Provider Emergency Medicine Emergency Medical Services; PCP Nurse Practitioner Primary Care; Visit Provider Internal Medicine Cardiovascular Disease | DX: R07.9 Chest pain, unspecified (principal); R00.0 Tachycardia, unspecified | CPT/HCPCS: 93010 ==

== ENCOUNTER → 2024-10-01 12:25 | Outpatient (BNV) | payer MEDICAID, SELFPAY | PROVIDERS: Emergency Provider Emergency Medicine Emergency Medical Services; PCP Nurse Practitioner Primary Care; Visit Provider Radiology Diagnostic Radiology | DX: R06.02 Shortness of breath (principal); R07.9 Chest pain, unspecified; R05.9 Cough, unspecified; J18.9 Pneumonia, unspecified organism | CPT/HCPCS: 71046; 71275 ==

== ENCOUNTER → 2024-10-01 18:46 | Outpatient (BNV) | payer MEDICAID, SELFPAY | PROVIDERS: Admitting Provider Physician Assistant; Emergency Provider Emergency Medicine Emergency Medical Services; PCP Nurse Practitioner Primary Care; Visit Provider Physician Assistant | DX: J18.9 Pneumonia, unspecified organism (principal); J45.41 Moderate persistent asthma with (acute) exacerbation | CPT/HCPCS: 99239 ==

== ENCOUNTER 2024-10-05 09:30 | Emergency (ER) | payer MEDICAID, SELFPAY ==
--- NOTE | ~2024-10-05 | XR_ITS ---
CLINICAL HISTORY: right pain post coughing episode 2 view chest x-ray Comparison: CR/SR - XR CHEST 2V - 10/01/24 12:53 EDT Findings: There is improved aeration in the right upper lobe with persistent airspace opacity noted. Normal size heart. No acute fracture. IMPRESSION: There is improved aeration in the right upper lobe with persistent airspace opacity noted. This document has been electronically signed by: Israel Luna MD on 10/05/2024 10:29:30
[2024-10-05 09:33] VITALS: BP 106/72; PULSE 106; O2SAT 97
[2024-10-05 09:35] VITALS: PULSE 106; RESP 20; TEMP 36.8; O2SAT 97; BMI 36.3
[2024-10-05 09:44] VITALS: PULSE 106; RESP 20; O2SAT 97
--- NOTE | 2024-10-05 09:53 | ED.GENADULT ---
HPI - General Adult General Chief complaint: General Medical Stated complaint: RT RIB PAIN Time Seen by Provider: 10/05/24 09:41 Source: patient and EMS Mode of arrival: EMS Limitations: no limitations History of Present Illness ED Provider: Berkley Beyer APRN HPI narrative: 49-year-old female with a history of asthma who is currently being treated for pneumonia with Augmentin twice daily presents the ER with complaints of right rib pain which began last night after having a coughing fit. Patient has not tried taking any [id number] medications. Of note patient was admitted for asthma exacerbation and pneumonia and discharged on October 02 on Augmentin. She reports she has been feeling improved. She has been afebrile. She still does have a nonproductive cough. She denies any shortness of breath, vomiting, diarrhea, leg swelling, leg pain. On review of ER visit on 10/01 patient had a chest x-ray and CT imaging that showed a right upper lobe pneumonia and was negative for PE. Related Data Home Medications ?Medication ?Instructions ?Recorded ?Confirmed albuterol sulfate 90 mcg/actuation 2 puff inhalation Q4-6H PRN 10/01/24 10/01/24 aerosol inhaler (Ventolin HFA) Shortness Of Breath Or Wheezing benztropine 0.5 mg tablet 0.5 mg PO BID 10/01/24 10/01/24 budesonide-formoterol HFA 160 2 puff inhalation BID 10/01/24 10/01/24 mcg-4.5 mcg/actuation aerosol inhaler (Symbicort) cetirizine 10 mg tablet 10 mg PO DAILY 10/01/24 10/01/24 clonazepam 1 mg tablet 1 mg PO BID PRN Anxiety 10/01/24 10/01/24 lamotrigine 200 mg tablet 200 mg PO BID 10/01/24 10/01/24 montelukast 10 mg tablet 10 mg PO DAILY 10/01/24 10/01/24 omeprazole 20 mg capsule,delayed 20 mg PO DAILY 10/01/24 10/01/24 release omeprazole 20 mg capsule,delayed 20 mg PO DAILY@1630 PRN Acid Reflux 10/01/24 10/01/24 release quetiapine 400 mg tablet 400 mg PO BID 10/01/24 10/01/24 Previous Rx's ?Medication ?Instructions ?Recorded ProAir RespiClick 90 mcg/actuation 2 inh inhalation Q4H PRN shortness 10/02/24 breath activated (albuterol of breath or wheezing #1 ea sulfate) amoxicillin 875 mg-potassium 1 tab PO BID #10 tabs 10/02/24 clavulanate 125 mg tablet cyclobenzaprine 10 mg tablet 10 mg PO Q8H #12 tabs 10/05/24 ibuprofen 600 mg tablet 600 mg PO Q8H PRN fever or pain 10/05/24 #30 tabs lidocaine 5 % topical patch 1 patch topical DAILY #15 ea 10/05/24 (Lidoderm) Allergies Allergy/AdvReac Type Severity Reaction Status Date / Time codeine [CODEINE] Allergy Severe VOMITING, Verified 10/05/24 09:39 FEVER,CHILLS Review of Systems Review of Systems: Yes all other systems are reviewed and are negative Constitutional: Constitutional: Reports no additional constitutional complaints, Denies body ache(s), Denies chills, Denies fever(s), Denies headache(s) and Denies weakness Eyes: Eyes: Reports no additional eye complaints and Denies change in vision ENT: Reports system reviewed and no additional complaints, except as documented, Denies dizziness, Denies headache(s), Denies nasal congestion, Denies nasal discharge and Denies neck pain Cardiovascular: Cardiovascular: Reports no additional cardiovascular complaints, Reports chest pain, Denies leg edema and Denies dyspnea Respiratory: Respiratory: Reports no additional respiratory complaints, Reports cough and Denies dyspnea Gastrointestinal: Gastrointestinal: Reports no additional gastrointestinal complaints, Denies abdominal pain, Denies diarrhea, Denies nausea and Denies vomiting Genitourinary: Genitourinary: Reports no additional female genitourinary complaints and Denies urinary incontinence Musculoskeletal: Musculoskeletal: Reports no additional musculoskeletal complaints, Denies back pain, Denies arthralgias, Denies joint swelling, Denies neck pain, Denies numbness and Denies tingling Integumentary/Breasts: Skin/Breast: Reports system reviewed and no additional complaints, except as docu and Denies rash Neurologic: Reports system reviewed and no additional complaints, except as documented, Denies Abnormal speech present, Denies dizziness, Denies headache(s), Denies numbness, Denies tingling and Denies weakness FOR[facility], [facility] Past Medical History Attestation statement: The following information was validated with the patient. Source: old records reviewed and nursing notes reviewed Medical History Bipolar disorder Hypertension Chronic post-traumatic stress disorder (PTSD) Depression Anxiety Asthma No known health problems Social History Social History Unable to assess alcohol history related to: Unable to respond Alcohol intake: never Patient Tobacco Use Status: Current everyday Tobacco user Smoked in Last 30 Days: Yes Substance Use Type: Marijuana and Unknown Any prior treatment program specific to substance use: No Advance Directives: No Advance Directives Information Provided: Yes Do you have a plan to hurt others: No Plan service: No Physical Exam ED Vital Signs: Vital Signs - 24 hr 10/05/24 09:35 10/05/24 09:44 10/05/24 11:04 Temperature 98.2 F 98 F Pulse Rate 106 H 106 H 88 Respiratory Rate 20 20 18 Blood Pressure 141/76 H Pulse Oximetry 97 97 98 Oxygen Delivery Method Room Air 10/05/24 11:05 Temperature 98 F Pulse Rate 88 Respiratory Rate 18 Blood Pressure 141/76 H Pulse Oximetry 98 Oxygen Delivery Method BMI result Body Mass Index 36.3 Const General: cooperative, healthy appearing, comfortable and no acute distress Orientation/consciousness: patient oriented x3 Limitations: no limitations HENMT Head: Yes normal to inspection Ears: hearing grossly normal bilaterally General nose exam: Normal external nose present Face and sinus: Yes normal facial exam Mouth: Normal oral and palatal mucosa present Throat: Yes posterior oropharynx normal Eyes General: appearance normal, both eyes and all related structures Pupils: Equal, round and reactive pupils present Neck Neck: Yes normal visual inspection Chest Chest palpation & inspection: normal inspection of the chest Chest/axillae images: 1. Tenderness to palpation. No crepitus or ecchymosis noted Resp Effort & Inspection: normal respiratory effort Auscultation: clear to auscultation bilaterally Cardio Rate: regular rate Rhythm: regular rhythm Peripheral pulses: Peripheral pulses 2+ throughout GI Inspection: Yes normal to inspection Palpation (GI): Soft to palpation and nontender Auscultation: normal bowel sounds Back/Spine/Pelvis Thoracic/Lumbar Spine: thoracic and lumbar spine normal to inspection Skin General skin exam: no rashes or lesions noted Neuro General: patient oriented x3, no focal motor deficits and normal sensation to monofilament Cranial nerves: Yes Equal, round and reactive pupils present Cognition (Neuro): normal cognition Speech: No Abnormal speech present Gait exam (Neuro): Normal gait present Motor exam (neuro): 5/5 motor strength present throughout Extrem General: Yes normal to inspection, Yes no pedal edema and Yes no calf tenderness Medications Administered Discontinued Medications Generic Name Dose Route Start Last Admin Trade Name Freq PRN Reason Stop Dose Admin Ketorolac Tromethamine 15 mg 10/05/24 10:07 10/05/24 10:15 Ketorolac Tromethamine 15 Mg/Ml Vial IM 10/05/24 10:08 15 mg ONCE ONE Administration Medical Decision Making Medical Decision Making MDM Narrative: 49-year-old female with a history of asthma who is currently being treated for pneumonia with Augmentin twice daily presents the ER with complaints of right rib pain which began last night after having a coughing fit. Patient has not tried taking any [id number]-[id number] medications. Of note patient was admitted for asthma exacerbation and pneumonia and discharged on October 02 on Augmentin. She reports she has been feeling improved. She has been afebrile. She still does have a nonproductive cough. She denies any shortness of breath, vomiting, diarrhea, leg swelling, leg pain. On review of ER visit on 10/01 patient had a chest x-ray and CT imaging that showed a right upper lobe pneumonia and was negative for PE. On exam patient has tenderness the right chest wall with no crepitus or ecchymoses. She has clear lung sounds. Vitals are stable Will obtain chest x-ray, provide analgesia. Differential Diagnosis Differential Diagnoses: The differential diagnosis associated with the presentation includes Chest wall strain, rib fracture Low suspicion for PE with negative CTA imaging 3 days ago with no hypoxia, tachypnea or tachycardia to suggest same. No clinical findings concerning for DVT Admission/Observation Consideration of admission/observation: Escalation of care including admission/observation considered Independent Interpretation I performed an independent interpretation of an: Plain X-Ray Interpretation: I independently viewed the x-ray and agree with the radiology report Radiology Impression Discussion of test interpretation with radiology: I have reviewed the radiologist's reading. Radiologist Impression: [address] [address] XRay Report Signed Patient: Rochelle Wang MR#: [id number] : 1975 Acct:[id number] Age/Sex: 49 / F ADM Date: 10/05/24 Loc: HO.ED Attending Dr: Ordering Physician: Berkley Beyer NP Date of Service: 10/05/24 Procedure(s): XR chest 2V Accession Number(s): [id number] cc: [facility]; Berkley Beyer NP~ CLINICAL HISTORY: right pain post coughing episode 2 view chest x-ray Comparison: CR/SR - XR CHEST 2V - 10/01/24 12:53 EDT Findings: There is improved aeration in the right upper lobe with persistent airspace opacity noted. Normal size heart. No acute fracture. IMPRESSION: There is improved aeration in the right upper lobe with persistent airspace opacity noted. This document has been electronically signed by: Israel Luna MD on 10/05/2024 10:29:30 Independent Historian Clinical information obtained from an independent historian. History obtained from or confirmed by: EMS Tests considered The following testing was considered but not selected: see above Prescription Management I considered prescription management with: Pain Medication Discharge Plan Discharge Clinical Impression: Chest wall muscle strain Patient Disposition: Home, Self-Care Instructions: Chest Wall Pain (ED) Prescriptions: New lidocaine [Lidoderm] 5 % adhesive patch,medicated 1 patch topical DAILY Qty: 15 0RF Rx Instructions: leave on most painful area for up to 12 hrs cyclobenzaprine 10 mg tablet 10 mg PO Q8H Qty: 12 0RF ibuprofen 600 mg tablet 600 mg PO Q8H PRN (Reason: fever or pain) Qty: 30 0RF No Action benztropine 0.5 mg tablet 0.5 mg PO BID lamotrigine 200 mg tablet 200 mg PO BID cetirizine 10 mg tablet 10 mg PO DAILY clonazepam 1 mg tablet 1 mg PO BID PRN (Reason: Anxiety) omeprazole 20 mg capsule,delayed release(DR/EC) 20 mg PO DAILY@1630 PRN (Reason: Acid Reflux) montelukast 10 mg tablet 10 mg PO DAILY albuterol sulfate [Ventolin HFA] 90 mcg/actuation HFA aerosol inhaler 2 puff INHALATION Q4-6H PRN (Reason: Shortness Of Breath Or Wheezing) quetiapine 400 mg tablet 400 mg PO BID budesonide-formoterol [Symbicort] 160-4.5 mcg/actuation HFA aerosol inhaler 2 puff INHALATION BID omeprazole 20 mg capsule,delayed release(DR/EC) 20 mg PO DAILY ProAir RespiClick 90 mcg/actuation aerosol powdr breath activated 2 inh inhalation Q4H PRN (Reason: shortness of breath or wheezing) Qty: 1 0RF amoxicillin-pot clavulanate 875-125 mg tablet 1 tab PO BID Qty: 10 0RF Referrals: [facility] [Primary Care Provider] - 1 week Interventions: ED Discharge Assessment Last Done: 10/05/24 11:05 Discharge Date/Time: 10/05/24 11:08 Print Language: Occitan
[2024-10-05] MEDS: Ketorolac Tromethamine 15 MG/ML VIAL IM (10:15)
[2024-10-05 11:04] VITALS: BP 141/76; PULSE 88; RESP 18; TEMP 36.6; O2SAT 98
[2024-10-05 11:05] VITALS: BP 141/76; PULSE 88; RESP 18; TEMP 36.6; O2SAT 98
== END 2024-10-05 11:08 | disposition home or self-care (01) ==
PROVIDERS: Emergency Provider Internal Medicine
DX: S29.011A Strain of muscle and tendon of front wall of thorax, initial encounter (principal); R07.81 Pleurodynia; R05.9 Cough, unspecified; X58.XXXA Exposure to other specified factors, initial encounter; Y93.9 Activity, unspecified; Y92.9 Unspecified place or not applicable; Y99.8 Other external cause status
CPT/HCPCS: 71046; 96372; 99284; J1885

== ENCOUNTER → 2024-10-05 09:50 | Outpatient (BNV) | payer MEDICAID, SELFPAY | PROVIDERS: Emergency Provider Internal Medicine; Visit Provider Radiology Diagnostic Radiology | DX: R07.81 Pleurodynia (principal); R05.9 Cough, unspecified | CPT/HCPCS: 71046 ==

== ENCOUNTER 2024-10-07 09:23 | Outpatient (REF) | payer MEDICAID, SELFPAY ==
[2024-10-07 13:17] LABS: Alanine Aminotransferase 24 U/L (0-31); Albumin Level 3.5 g/dL (3.5-5.0); Alkaline Phosphatase 73 U/L (39-117); Aspartate Amino Transferase 29 U/L (5-31); Bilirubin Direct 0.1 mg/dL (0.0-0.5); Bilirubin Total 0.3 mg/dL (0.0-1.0); Total Protein 7.3 g/dL (6.5-8.0)
[2024-10-07 13:22] LABS: HCG Quantitative 10 mIU/mL
== END 2024-10-07 09:24 | disposition home or self-care (01) ==
LOC: HO.HHCL 09:23
PROVIDERS: Visit Provider Nurse Practitioner Primary Care
DX: R79.89 Other specified abnormal findings of blood chemistry (principal); R74.8 Abnormal levels of other serum enzymes
CPT/HCPCS: 36415; 80076; 84702

== ENCOUNTER 2024-10-22 10:20 | Outpatient (AMB) | payer MEDICAID, SELFPAY ==
[2024-10-22 10:34] VITALS: BP 115/76; PULSE 118; BMI 37.2
--- NOTE | 2024-10-22 10:34 | A.OFFVIS_ITS ---
Vital Signs 10/22/24 10:34 Height 5 ft 4 in Weight 216 lb 7.903 oz BMI 37.2 BP 115/76 Blood Pressure Location Lt brachial Position Sitting Pulse 118 H Intake Visit Reasons: Colonoscopy Screening Intake Note: New patient in office today for colonoscopy screening. CC: Patient reports that she is having heartburn but she believes is related to menopouse. She takes Omeprazole and this helps. Accompanied by: Self / Same As Patient Allergies codeine [CODEINE] Allergy (Severe, Verified 10/22/24 11:11) VOMITING, FEVER,CHILLS oxycodone Allergy (Severe, Verified 10/22/24 11:14) Nausea and Vomiting percocet Allergy (Severe, Uncoded 10/22/24 11:14) Nausea and Vomiting BENZOYL PEROXIDE Allergy (Unknown, Uncoded 10/21/24 14:50) UNKNOWN TRETINOIN Allergy (Unknown, Uncoded 10/21/24 14:50) UNKNOWN HPI HPI Colonoscopy Screening: Details: 49-year-old female here for preprocedural meeting to discuss a screening colonoscopy. She is referred by [facility]. PMX Obesity-BMI 37 -on Zepbound Asthma Smoker Palpitations Bipolar disorder History of cervical dysplasia * SURGICAL HISTORY * ALLERGIES Codeine Benzoyl peroxide Tretinoin * [employer] LABS: Laboratory Tests 10/02/24 10/07/24 05:29 09:25 WBC 22.7 H RBC 3.33 L Hgb 9.9 L Hct 28.5 L Plt Count 316 Total Bilirubin 0.3 Direct Bilirubin 0.1 AST 29 ALT 24 Alkaline Phosphatase 73 TODAY'S VISIT She says I thought that I was here for HB. She denies being on Mounjaro, apparently insurance denied this - however she has gained a great deal of weight over the past 3 years r/t seroquel - 45 lbs. This is well controlled on her 20mg omeprazole. She thinks her GERD is r/t menopause. She does not want to stop her omeprazole for an HP breath test and she does not want to stop her coffee for colonoscopy prep as she drinks it with milk. SHe also is not thrilled by Colgogu[employer] when we watch the video - does not want to play with poop. So, we will do a barium swallow and US to r/o severe hernia and GB problems. Since her GERD is well controlled and she ad mits to drinking a lot of coffee, I am not overly worried. Will need full PE if she opts for procedures. ROV 3 mos. PFS Medical History History of cervical dysplasia Bipolar disorder Hypertension Chronic post-traumatic stress disorder (PTSD) Depression Anxiety Asthma Surgical History (Updated 10/22/24 @ 11:05 by TYREL Rodriguez) History of ankle surgery Hx of tubal ligation Family History (Updated 10/22/24 @ 11:13 by TYREL Rodriguez) Father Liver cancer Paternal Grandmother Lung cancer Maternal Grandmother Cancer Social History Unable to assess alcohol history related to: Unable to respond Alcohol intake: never Patient Tobacco Use Status: Current everyday Tobacco user Substance Use Type: Marijuana and Unknown service: No Review of Systems Const Denies fatigue, Denies fever(s), Denies night sweats, Denies poor appetite and Denies weight loss Eyes Details: glasses Reports requires corrective lenses ENT Reports Normal hearing present, Denies dental pain, Denies dysphagia, Denies hearing loss, Denies mouth pain, Denies odynophagia, Denies throat swelling, Denies tongue swelling and Reports other (Dentition adequate) GI Details: Denies abdominal pain, Denies melena, Denies bloating, Denies hematochezia, Denies constipation, Denies GI cramping, Denies dysphagia, Denies excessive flatus, Denies early satiety, Denies heartburn, Denies diarrhea, Denies nausea, Denies odynophagia, Denies vomiting and Denies hematemesis Skin/Breast Denies pruritus, Denies lesions, Denies rash and Denies jaundice Neuro Reports Normal hearing present and Denies Abnormal speech present Endo Denies fatigue Aller/Immun Denies throat swelling and Denies tongue swelling Physical Exam Const General: cooperative, no acute distress, well developed and well groomed Nutritional Appearance: well nourished and obese Orientation/consciousness: oriented to person, oriented to place and oriented to time Limitations: No language barrier HEENT Head: Yes normocephalic and Yes atraumatic Eyes General: appearance normal, both eyes and all related structures Pupils: Equal, round and reactive pupils present Neck Neck: Yes normal visual inspection Thyroid: Thyroid normal Resp Effort & Inspection: normal respiratory effort and able to speak in complete sentences Skin General skin exam: no rashes or lesions noted Neuro General: oriented to person, oriented to place and oriented to time Cranial nerves: Yes Equal, round and reactive pupils present and Yes Normal hearing present Speech: No Abnormal speech present Extrem General: Yes normal to inspection Psych Appearance: grossly normal and well kempt Mental Status: mental status grossly normal Speech and movement: Normal speech and movement present Affect: normal affect Attitude: cooperative Thought process: Normal thought process present and not confabulating Thought content: Normal thought content present Insight: Limited insight present (Psych) Judgement: Limited judgement present (Psych) Assessment & Plan Assessment & Plan (1) GERD (gastroesophageal reflux disease): Code(s): K21.9 - Gastro-esophageal reflux disease without esophagitis Category: Medical Plan She says I thought that I was here for HB. She denies being on Mounjaro, apparently insurance denied this - however she has gained a great deal of weight over the past 3 years r/t seroquel - 45 lbs. This is well controlled on her 20mg omeprazole. She thinks her GERD is r/t menopause. She does not want to stop her omeprazole for an HP breath test and she does not want to stop her coffee for colonoscopy prep as she drinks it with milk. SHe also is not thrilled by Colgog[employer] when we watch the video - does not want to play with poop. So, we will do a barium swallow and US to r/o severe hernia and GB problems. Since her GERD is well controlled and she ad mits to drinking a lot of coffee, I am not overly worried. Will need full PE if she opts for procedures. ROV 3 mos. Orders: Orders US abdomen complete Today K21.9 - Gastro-esophageal reflux disease without esophagitis [place] barium swallow Today K21.9 - Gastro-esophageal reflux disease without esophagitis Medications: New peg 3350-electrolytes 236-22.74-6.74 -5.86 gram (Golytely) until fecal effluent is clear; do not exceed a total volume of 2,000 mL 240 mL PO Q10M 1 day 4,000 mL 0RF Z12.11 - Encounter for screening for malignant neoplasm of colon bisacodyl (Dulcolax (bisacodyl)) 10 mg (2 x 5 mg) PO BEDTIME 2 days 4 tabs 0RF Coding Level of Care Code New Pt Level 3 (79604) Diagnoses GERD (gastroesophageal reflux disease) K21.9
--- OUTSIDE RECORDS SUMMARY | 2024-10-22 12:24 | XMS_ITS | Clinical Summary ---
Author Organization [employer] Address [address] [facility] [address] [place] [address] Care Team Providers Care Horseradish Maker Name Role Phone Chloe Radha HERNANDEZ Primary Care Provider [phone] José Miguel Mueller Unavailable Unavailable Allergies Active Allergy Reactions Criticality Noted Date Comments Benzoyl Peroxide 11/20/2012 Other reaction(s): local irritation Codeine High 02/16/2012 Other reaction(s): upset stomach Tretinoin 11/20/2012 Other reaction(s): local irritation Medications sodium chloride ([place] Nasal [place]) 0.65 % nasal sprayIndication s:Nasal congestion 1-2 sprays on each nostril every 2-3 hours as needed for nasal congestion 30 mL 02/14/20 23 Active lamoTRIgine (LaMICtal) 200 MG tabletIndicatio ns:Bipolar affective disorder, remission status unspecified (CMS/HCC) Take 1 tablet (200 mg) by mouth 2 times daily. 180 tablet 3 01/22/20 24 Active clonazePAM (KlonoPIN) 1 MG tabletIndicatio ns:Bipolar affective disorder, remission status unspecified (CMS/HCC) Take 1 tablet (1 mg) by mouth 2 times daily for 10 days. 20 tablet 04/25/20 24 Active Symbicort 160-4.5 MCG/ACT inhalerIndicati ons:Moderate persistent asthma without complication INHALE 2 PUFFS TWICE DAILY IN THE MORNING AND AT BEDTIME, RINSE MOUTH AFTER USING. 10.2 g 11 05/20/20 24 Active omeprazole (PriLOSEC) [address] capsuleIndicati ons:Gastroesoph ageal reflux disease, unspecified whether esophagitis present TAKE 1 CAPSULE BY MOUTH BEFORE BREAKFAST AND BEFORE SUPPER. DO NOT BREAK, CRUSH, DISSOLVE OR CHEW. 56 capsule 3 09/18/19 25 Active benztropine (Cogentin) 0.5 MG tablet Take 0.5 mg by mouth 2 times daily. Active Tirzepatide-Alessio ght Management (Zepbound) 2.5 MG/0.5ML solution auto-injectorIn dications:Class 2 obesity with body mass index (BMI) of 37.0 to 37.9 in adult, unspecified obesity type, unspecified whether serious comorbidity present Inject 0.5 mL (2.5 mg) under the skin 1 (one) time per week. 2 mL 09/18/19 25 Active montelukast (Singulair) 10 MG tabletIndicatio ns:Allergic rhinitis, unspecified seasonality, unspecified trigger TAKE 1 TABLET BY MOUTH EVERY DAY 90 tablet 1 09/24/19 25 Active cetirizine (ZyrTEC) 10 MG tabletIndicatio ns:Allergic rhinitis, unspecified seasonality, unspecified trigger TAKE 1 TABLET BY MOUTH EVERY DAY 90 tablet 1 09/24/19 25 Active ProAir RespiClick 108 (90 Base) MCG/ACT aerosol powder Take 2 puffs by mouth every 4 (four) hours if needed (wheezing or shortness of breath). 10/03/19 25 Active QUEtiapine (SEROquel) 400 MG tablet Take 1 tablet by mouth 2 times daily. Active cyclobenzaprine (Flexeril) 5 MG tabletIndicatio ns:Rib pain 1-2 tabs as needed up to TID 15 tablet 10/16/19 25 Active QUEtiapine (SEROquel) 400 MG tabletIndicatio ns:Bipolar affective disorder, remission status unspecified (CMS/HCC) Take 1/2 tablet by mouth in the morning and at noon, and 1 full tablet at bedtime 180 tablet 3 01/22/20 24 025 Discontinued(M ed list cleanup (will not trigger notification to Pharmacy)) cetirizine (ZyrTEC) 10 MG tabletIndicatio ns:Allergic rhinitis, unspecified seasonality, unspecified trigger TAKE 1 TABLET BY MOUTH EVERY DAY 90 tablet 1 04/02/20 24 025 Discontinued montelukast (Singulair) 10 MG tabletIndicatio ns:Allergic rhinitis, unspecified seasonality, unspecified trigger TAKE 1 TABLET BY MOUTH EVERY DAY 90 tablet 1 04/02/20 24 025 Discontinued albuterol (Ventolin HFA) 108 (90 Base) MCG/ACT inhalerIndicati ons:Moderate persistent asthma without complication INHALE 2 PUFFS BY MOUTH EVERY 4 TO 6 HOURS NEEDED 18 g 3 04/17/20 24 025 Discontinued(M ed list cleanup (will not trigger notification to Pharmacy)) Active Problems Problem Noted Date Diagnosed Date Tachycardia 10/01/2024 Assessment & Plan (10/01/2024 11:10 AM EDT): Pt presented with acute shortness of breath, palpitations and dizziness. She is in moderate respiratory distress, O2 SAT's maintaining. Hr upon arrival was 147 and has increased to 180. EKG without significant abnormalities, sinus tach. BP soft. Pt anxious appearing. Called ambulance to get pt transported to the ED for acute care. Respiratory distress 10/01/2024 Assessment & Plan (10/01/2024 11:10 AM EDT): Pt presented with acute shortness of breath, palpitations and dizziness. She is in moderate respiratory distress, O2 SAT's maintaining. Hr upon arrival was 147 and has increased to 180. EKG without significant abnormalities, sinus tach. BP soft. Pt anxious appearing. Called ambulance to get pt transported to the ED for acute care. Palpitations 10/01/2024 Assessment & Plan (10/01/2024 11:10 AM EDT): Pt presented with acute shortness of breath, palpitations and dizziness. She is in moderate respiratory distress, O2 SAT's maintaining. Hr upon arrival was 147 and has increased to 180. EKG without significant abnormalities, sinus tach. BP soft. Pt anxious appearing. Called ambulance to get pt transported to the ED for acute care. Class 2 obesity with body ma ss index (BMI) of 37.0 to 37.9 in adult 09/17/2024 Tobacco dependence 06/26/2024 Vulvar itching 03/18/2023 Assessment & Plan (03/18/2023 4:31 PM EDT): Urine dipstick neg. -Will treat empirically for fungal infection w Clotrimazole cream. -Pt self-collected vaginal swab for bacterial vaginosis test, Gn-Ch, and other STIs were requested to be done by pt. Bipolar disorder 07/26/2022 Assessment & Plan (01/22/2024 10:08 AM EDT): Plus PTSD. Extensive trauma history. Dealing with very stressful legal situations. Irritability and reactivity still bothersome, but better than it has been historically. She will continue Seroquel 400 mg at bedtime, Seroquel 200 mg morning and noon, Lamotrigine 200 mg BID, Klonopin 1 mg BID. Continue with therapist. Since this provider is retiring, she will be referred to new [facility] psychiatric prescriber. Patient is aware that these will be televisits, and that new provider will not be an employee of [facility]. Gives verbal consent to share protected health information. Any issues or concerns call the health center. All her questions were answered and I have wished her well. She agrees with the plan. Assessment & Plan (12/11/2023 11:58 AM EDT): Plus PTSD. Extensive trauma history. Dealing with very stressful legal situations. Despite this and other social stressors, mostly able to control her irritability and reactivity. Still not sleeping well, awakens frequently, twitches at night. Drowsy and falls asleep during the day. Mouth breathes. Obese. Suspect CARMEN. This provider will consult patient's PCP re consideration of ordering sleep study. Meanwhile, continue Seroquel 400 mg at bedtime, Seroquel 200 mg morning and noon, Lamotrigine 200 mg BID, Klonopin 1 mg BID. Continue with therapist. We will have one final appointment in approx 6 weeks, and then her care will be transferred to new [facility] psychiatric prescriber. Patient is aware that these will be televisits, and that new provider will not be an employee of [facility]. Gives verbal consent to share protected health information. She agrees with the plan. Assessment & Plan (10/10/2023 1:19 PM EDT): Plus PTSD. Extensive trauma history. Dealing with very stressful legal situations. Despite this and other social stressors, mostly able to control her irritability and reactivity, however not sleeping well. Will increase to Seroquel 400 mg at bedtime, continue Seroquel 200 mg morning and noon, Lamotrigine 200 mg BID, Klonopin 1 mg BID. Continue with therapist. On 05/29/2023 provider informed the patient that I would be retiring. Unfortunately her therapist is in private practice without access to collaborating psychiatric prescriber. We will continue working on plan for transition of care. Meanwhile, F/U with me in 2 months. . She agrees with the plan. Assessment & Plan (08/14/2023 1:19 PM EST): Plus PTSD. Extensive trauma history. Dealing with very stressful legal situation. Despite this and other social stressors, mostly able to control her irritability and reactivity. Happy with current med regimen and will continue Seroquel 200 mg TID, Lamotrigine 200 mg BID, Klonopin 1 mg BID. Continue with therapist. On 05/29/2023 provider informed the patient that I would be retiring within the next year or so. Unfortunately her therapist is in private practice without access to collaborating psychiatric prescriber. We will continue working on plan for transition of care. Meanwhile, F/U with me in 2 months. . She agrees with the plan. Assessment & Plan (05/29/2023 10:33 AM EST): Plus PTSD. Extensive trauma history. Dealing with very stressful legal situation. Despite this and other social stressors, has been able to control her irritability and reactivity. Happy with current med regimen and will continue Seroquel 200 mg TID, Lamotrigine 200 mg BID, Klonopin 1 mg BID. Continue with therapist. Today 05/29/2023 provider informed the patient that I would be retiring within the next year or so. Suggest she discuss with her therapist the possibility of referral to collaborating psychiatric prescriber. Meanwhile, F/U with me in 2 months. . She agrees with the plan. Assessment & Plan (03/27/2023 10:14 AM EDT): Plus PTSD. Extensive trauma history. Dealing with very stressful legal situation. Has been able to control her irritability and reactivity. Happy with current med regimen and will continue Seroquel 200 mg TID, Lamotrigine 200 mg BID, Klonopin 1 mg BID. Continue with therapist. F/U with me in 2 months. . She agrees with the plan. Assessment & Plan (01/23/2023 12:36 PM EDT): Plus PTSD. Extensive trauma history. Dealing with very stressful legal situation. Has been able to control her irritability and reactivity. Happy with current med regimen and will continue Seroquel 200 mg TID, Lamotrigine 200 mg BID, Klonopin 1 mg BID. Continue with therapist. F/U with me in 2 months. . She agrees with the plan. Assessment & Plan (11/22/2022 11:35 AM EDT): Doing well despite very significant stressors. Happy with current med regimen and will continue Seroquel 200 mg TID, Lamotrigine 200 mg BID, Klonopin 1 mg BID. Continue with therapist. F/U with me in 2 months. . She agrees with the plan. Assessment & Plan (10/11/2022 2:03 PM EDT): Still not having mood swings but reactivity increased recently, r/t family and legal stressors. Has been taking more of the prn midday Seroquel. Will now increase to Seroquel 200 mg TID. Continue Lamotrigine 200 mg BID, Klonopin 1 mg BID. Remain off the Abilify. Continue with therapist. F/U with me in 6-8 weeks. . She agrees with the plan. Assessment & Plan (07/26/2022 11:36 AM EST): Mood is reliably stable without anhedonia or hypomania. Doing better controlling reactivity. Has found Seroquel more helpful to calm herself down in volatile situations. She will continue Seroquel 100 mg BID, may take extra Seroquel 50 mg TID prn. Continue Lamotrigine 200 mg BID, Klonopin 1 mg BID. Remain off the Abilify. Continue with therapist. F/U with me in 6-8 weeks. . She agrees with the plan. Presence of retained hardware 02/14/2017 Carcinoma in situ of uterine cervix 02/17/2014 04/18/2023 Abnormal weight gain 12/14/2011 04/18/2023 Asthma 12/14/2011 04/18/2023 Dysplasia of cervix 12/14/2011 04/18/2023 Encounters Date Type Department Care Team Description 10/15/2024 10:30 AM EDT Office Visit [facility] [address] [place] [phone] Radha Frank ANP Rib pain (Primary Dx); Bipolar affective disorder, remission status unspecified (CMS/HCC); Moderate persistent asthma without complication; Class 2 severe obesity with serious comorbidity and body mass index (BMI) of 36.0 to 36.9 in adult, unspecified obesity type (CMS/HCC); Pneumonia of right upper lobe due to infectious organism; Tachycardia; Hospital discharge follow-up 10/15/2024 Travel 10/05/2024 Refill [facility] [address] [place] [phone] Radha Frank ANP Moderate persistent asthma without complication 10/03/2024 Telephone [facility] [address] [place] [phone] Juliette Allred, [facility] Follow-up 10/01/2024 11:00 AM EDT Office Visit [facility] [address] [place] [address] Lizeth Mitchell MD Tachycardia (Primary Dx); Palpitations; Respiratory distress 10/01/2024 Orders Only GENERIC EXTERNAL DATA DEPARTMENT Provider, Generic External Data 09/22/2024 Refill [facility] [address] [place] [address] Radha Frank ANP Allergic rhinitis, unspecified seasonality, unspecified trigger 09/20/2024 Population Health Risk Score [facility] ([facility] Department [address] [phone] Provider, Population Health Generic 09/18/2024 Telephone [facility] [address] [place] [phone] Radha Frank ANP Prior Authorization (Zepbound) 09/17/2024 11:00 AM EDT Office Visit [facility] [address] [place] [phone] Radha Frank ANP Class 2 obesity with body mass index (BMI) of 37.0 to 37.9 in adult, unspecified obesity type, unspecified whether serious comorbidity present (Primary Dx); Tobacco dependence; Bipolar affective disorder, remission status unspecified ([facility]); Tachycardia; Hair loss 09/17/2024 Travel 09/17/2024 Refill [facility] [address] [place] [phone] Allan Yadav MD Gastroesophageal reflux disease, unspecified whether esophagitis present 09/06/2024 Patient Outreach [address] [phone] Radha Frank ANP Care Coordination (CHW outreach for SDOH food needs-referral completed /) 09/06/2024 Patient Outreach [address] [phone] Radha Frank ANP Pre-visit Planning (SDOH Screening positive and Tobacco screening positive) 07/31/[address] [address] Radha Frank ANP Med Refill 07/31/[address] [address] Radha Frank ANP Med Refill 07/24/[address] [address] Radha Frank ANP Med Refill from Last 3 Months Immunizations Name Administration Dates Next Due Hep B, adult 05/06/2005, 2,10/26/1999,10/10 Influenza injectable quadriv alent IIV4 with preservative 04/12/2019,05/08/2018,04/17/2017,06/06,04/07/2015 Influenza, IIV3, injectable 04/08/2014 Influenza, Split (incl. abdiaziz fied surface antigen) 04/15/2013,03/21/2012 Pneumococcal Conjugate PCV 20 04/20/2023 Pneumococcal Polysaccharide PPSV23 02/21/2013 TD (adult), 2 Lf tetanus tox oid, preservative free, adsorbed 10/26/1999 Td (adult), 5 Lf tetanus tox oid, preservative free, adsorbed 06/12/2015 Tdap 06/04/2012 Social History Tobacco Use Types Packs/Day Years Used Date Smoking Tobacco: Every Day Cigarettes Passive Smoke Exposure: Current Smokeless Tobacco: Never Tobacco Cessation:Ready to Q uit: Not Asked; Counseling Given: Not Answered Depression Answer Date Recorded Patient Health Questionnaire-9 Score 26 09/17/2024 Patient Health Questionnaire-9 Score 26 09/17/2024 Last PHQ-9: Questionnaire Data Not on file 0 09/17/2024 Housing Stability Answer Date Recorded What is your housing situation today? I have shashi espinoza 09/06/[address] you li ve. Do you have problems with any of the following? None of the above 09/06/2024 Food Insecurity Answer Date Recorded Within the past 12 months, y ou worried that your food would run out before you got money to buy more: Sometimes True 2024 Within the past 12 months,th e food you bought just didn't last and you didn't have enough money to get more: Sometimes True 09/06/2024 Transportation Answer Date Recorded In the past 12 months, has l ack of transportation kept you from medical appts, meetings, work or from getting things needed for daily living? No 05/07/2024 Utilities Answer Date Recorded In the past 12 months, has t he electric, gas, oil or water company threatened to shut off services in your home? No 05/07/2024 Depression Answer Date Recorded Patient Health Questionnaire-2 Score 6 09/17/2024 Internet Access Answer Date Recorded Internet Access Q1 Yes 05/07/2024 Internet Access Q2 Not on file 05/07/2024 Comments No Sex and Gender Information Value Date Recorded Sex Assigned at Female 05/09/2022 10:14 AM EDT Legal Sex Female 10:14 AM EDT Gender Identity Female 05/09/2022 10:14 AM EDT Sexual Orientation Bisexual 05/09/2022 10 :14 AM EDT Last Filed Vital Signs Vital Sign Reading Time Taken Comments Blood Pressure 125/89 10/15/2024 10:41 AM EDT Pulse 120 10/15/2024 10:41 AM EDT Temperature 36.3 ??C (97.4 ??F) 10/15/2024 10:41 AM E DT Respiratory Rate 16 10/15/2024 10:41 AM EDT Oxygen Saturation 99% 10/15/2024 10:41 AM EDT Inhaled Oxygen Concentration - - Weight 96.3 kg (212 lb 6.4 oz) 10/15/2024 10:41 AM EDT Height 162.6 cm (5' 4 ) 09/17/2024 10:59 AM EDT Body Mass Index 36.46 09/17/2024 10:59 AM EDT Plan of Treatment Upcoming Encounters Date Type Department Care Team (Late st Contact Info) Description 12/20/2024 11:00 AM EDT Office Visit [facility] [address] [place], [place] [phone] Radha Frank, ANP [address] [place], [place] [phone] Health Maintenance Due Date Last Done Comments CT Colonography 1975 Colonoscopy 1975 FIT DNA/Cologuard 1975 FIT 1975 FOBT 1975 Sigmoidoscopy 1975 Family Planning (PISQ) 1992 COVID-19 Vaccine ( season) 2024 Influenza Vaccine (#1) 2024 9, 05/08/2018, 04/17/2017, Additional history exists Colorectal Cancer Screening 10/24/2024 Postponed from 1977 (Patient Refused) Mammogram 10/28/2024 Postponed from 2017 (Patient Refused) Depression Monitoring 03/20/2025 09/17/2024, 025 DTaP/Tdap/Td Vaccines (3 - Td or Tdap) 06/12/2025 06/12/2015, 06/04/2012, 10/26/1999 SDOH Screening 09/06/2025 09/06/2024 Alcohol/Substance Use Screening 09/17/2025 09/17/2024 Depression Screening 09/17/2025 09/17/2024, 09/18/19 25 Tobacco Screening 10/15/2025 10/15/2024 Cervical Cancer Screening 12/16/2025 HPV/Cotest 12/16/2025 12/16/2020, 08/0 02/2018, 03/08/2017 Pap Smear 12/16/2025 12/16/2020 Zoster Vaccines (1 of 2) 2027 Lipid Panel 04/20/2028 04/20/2023, 03/30/2020 RSV Patients and Patients Aged 60 years or older (1 - 1-dose 75+ series) 2052 Hepatitis B Vaccines Completed 05/06/2005, 10/01/2001, 10/26/1999, Additional history exists HIV Screening Completed 03/17/2023, 03/30/2020 Hepatitis C Screening Completed 03/17/2023 Pneumococcal Vaccine: Pediatrics (0 to 5 Years) and At-Risk Patients (6 to 49) Years) Completed 04/20/2023, 02/21/2013 HIB Vaccines Aged Out No longer eligi ble based on patient's age to complete this topic HPV Vaccines Aged Out No longer eligi ble based on patient's age to complete this topic Hepatitis A Vaccines Aged Out No long er eligible based on patient's age to complete this topic IPV Vaccines Aged Out No longer eligi ble based on patient's age to complete this topic Meningococcal Vaccine Aged Out No jenna ricardo eligible based on patient's age to complete this topic RSV under 20 months Aged Out No longe r eligible based on patient's age to complete this topic Rotavirus Vaccines Aged Out No longer eligible based on patient's age to complete this topic Procedures Procedure Name Priority Date/Time Associated Diagnosis Comments HEPATIC FUNCTION PANEL Routine 9:25 AM EDT Elevated liver enzymes HCG, TOTAL, QN Routine 10/07/2024 9:25 AM EDT Elevated serum hCG XR CHEST 2 VIEWS Routine 10/05/2024 10:2 9 AM EDT CTA CHEST PE PROTOCAL Routine 10/01/2024 5:32 PM EDT LACTIC ACID Routine 10/01/2024 4:07 PM EDT SARS COV2/INFLUENZA A/B AND RSV RNA QL NAAT Routine 10/01/2024 4:07 PM EDT XR CHEST 2 VIEWS Routine 10/01/2024 12:4 5 PM EDT HCG, TOTAL, QN Routine 10/01/2024 12:44 PM EDT HIGH SENSITIVITY TROPONIN I Routine 10/01/2024 12:44 PM EDT COMPREHENSIVE METABOLIC PANEL Routine 10/01/2024 12:44 PM EDT CBC WITH AUTO DIFFERENTIAL Routine 10/01/2024 12:44 PM EDT LIPID PANEL, STANDARD Routine 04/20/2023 10:13 AM EDT Lipid screening HEPATITIS C AB W/REFL TO HCV RNA, QN, PCR Routine 03/17/2023 2:09 PM EDT Routine screening for STI (sexually transmitted infection) HIV ANTIBODY/ANTIGEN ([place] DPH) Routine 03/17/2023 2:09 PM EDT HPV MRNA E6/E7 Routine 12/16/2020 11:33 AM EDT THINPREP PAP Routine 12/16/2020 11:33 AM EDT from Last 3 Months or Most Recently Relevant to Health Maintenance Results * hCG, Total, Quantitative (10/07/2024 9:25 AM EDT) Only the most recent of2 resultswithin the time period is included. HCG Quantitative 10 mIU/mL [facility] Comment:Weeks post LMP Appro ximate hCG(Last Menstrual Period) Range (mIU/ml)3 - 4 weeks 9 - 1304 - 5 weeks 75 - 2,6005 - 6 weeks 850 - 20,8006 - 7 weeks 4000 - 100,2007 - 12 weeks 11,500 - 289,79763 - 16 weeks 18,300 - 137,77677 - 29 weeks (2nd trimester) 1,400 - 53,79102 - 41 weeks (3rd trimester) 940 - 60,000The Vu B- hCG assay is used for the early detection ofpregnancy; it cannot be used to diagnose any conditionunrelated to . If a B-hCG level is not supportedby the clinical evidence, results should be confirmed by analternative method (qualitative urine hCG, for example). Blood Venous blood specimen / Unknown 10/07/2024 9:25 AM EDT 10/07/2024 12:30 PM EDT Radha Frank [facility] BLOOD ORDERABLES Final Resul t Performing Organization Address [facility] de Phone Number [facility] [address] [place] [phone] * Hepatic Function Panel (10/07/2024 9:25 AM EDT) Bilirubin, Total 0.3 0.0 - 1.0 mg/dL [facility] Bilirubin, Direct 0.1 0.0 - 0.5 mg/dL [facility] Aspartate Amino Transferase 29 5 - 31 U/L [facility] Alanine Aminotransferase 24 0 - 31 U/L [facility] Total Protein 7.3 6.5 - 8.0 g/dL [facility] Albumin Level 3.5 3.5 - 5.0 g/dL [facility] Alkaline Phosphatase 73 39 - 117 U/L [facility] Blood Venous blood specimen / Unknown 10/07/2024 9:25 AM EDT 10/07/2024 12:30 PM EDT Pending sale to [facility] LAB BLOOD ORDERABLES Final Resul t Performing Organization Address [facility] de Phone Number [facility] [address] [place] [phone] * XR Chest 2 Views (10/05/2024 10:29 AM EDT) Only the most recent of2 resultswithin the time period is included. Anatomical Region Laterality Modality Chest Radiographic Eugenia ging 10/05/2024 10:2 9 AM EDT Narrative 10/05/2024 10:31 AM EDT ? [facility] ?[address] ?[place] [address] ?XRay Report ? Signed ? Patient: Wang,Rochelle ?MR#: [id number] ?? [id number] ? : 1975 ?Acct:[id number] ? Age/Sex: 49 / F ?ADM Date: 10/05/24 ? Loc: HO.ED ? Attending Dr: ? Ordering Physician: Berkley Beyer NP ?? Date of Service: 10/05/24 ?? Procedure(s): XR chest 2V ?? Accession Number(s): [id number] ? cc: [facility]; Berkley Beyer NP ? CLINICAL HISTORY: right pain post coughing episode ? 2 view chest x-ray ? Comparison: CR/SR - XR CHEST 2V - 10/01/24 12:53 EDT ? Findings: ?? There is improved aeration in the right upper lobe with persistent ?? airspace opacity noted. ?? Normal size heart. ?? No acute fracture. ? IMPRESSION: ?? There is improved aeration in the right upper lobe with persistent ?? airspace opacity noted. ? This document has been electronically signed by: Israel Luna MD on ?? 10/05/2024 10:29:30 ? Dictated By: ?Israel Luna MD ? Signed By: ?<Electronically signed by Israel Luna MD in OV> ? 10/05/24 1030 ? DD/ 1029 ? TD/TT: 10/05/24 1029 ? Chief Clerk Shelter: ? Procedure Note Naldo Delgado - 10/05/[address] [address] XRay Report Signed Patient: Rochelle WangMR#: [id number] : 1975Acct:[id number] Age/Sex: 49 / FADM Date: 10/05/24 Loc: HO.ED Attending Dr: Ordering Physician: Berkley Beyer NP Date of Service: 10/05/24 Procedure(s): XR chest 2V Accession Number(s): [id number] cc: [facility]; Guillermo Beyerssshanda HOLT CLINICAL HISTORY: right pain post coughing episode 2 view chest x-ray Comparison: CR/SR - XR CHEST 2V - 10/01/24 12:53 EDT Findings: There is improved aeration in the right upper lobe with persistent airspace opacity noted. Normal size heart. No acute fracture. IMPRESSION: There is improved aeration in the right upper lobe with persistent airspace opacity noted. This document has been electronically signed by: Israel Luna MD on 10/05/2024 10:29:30 Dictated By: Israel Luna MD Signed By: <Electronically signed by Israel Luna MD in OV> 10/05/24 1030 DD/ 1029 TD/TT: 10/05/24 1029 Chief Clerk Shelter: [facility] External Provider IMG XR PROCEDURES Edited Result - Final * CTA Chest PE Protocal (10/01/2024 5:32 PM EDT) Anatomical Region Laterality Modality Body, Chest Computed Tomogra phy 10/01/2024 5:32 PM EDT Narrative 10/01/2024 5:33 PM EDT ? [facility] ?[address] ?[place] Jos[place] [address] ? CT Scan Report ? Signed ? Patient: Wang,Rochelle ?MR#: [id number] ?? [id number] ? : 1975 ?Acct:[id number] ? Age/Sex: 49 / F ?ADM Date: 10/01/24 ? Loc: HO.ED ? Attending Dr: ? Ordering Physician: Nato Bernstein MD ?? Date of Service: 10/01/24 ?? Procedure(s): CT angio chest PE protocol ?? Accession Number(s): [id number] ? cc: RADHA FRANK NP; Nato Bernstein MD ? Report Number: ?? [id number]: Total DLP = ??360.00 mGy-cm ? CLINICAL HISTORY: Shortness of breath, chest pain, right sided infil ? CT angiography of the chest with IV contrast. 3D/MIP post processing ?? reconstructions were performed. ? COMPARISON: None ? FINDINGS: ?? There are no intraluminal filling defects to suggest pulmonary embolism. ?? No evidence of right heart strain. ? No supraclavicular or axillary lymphadenopathy. ?? Ascending aorta and main pulmonary artery are normal in caliber. No ?? pericardial effusion. ?? Normal esophagus. Prominent right hilar and mediastinal lymph nodes, ?? likely reactive. ? Small left pleural effusion. Minimal linear atelectasis versus scarring ?? along the lung bases bilaterally. ?? Ground-glass and consolidation within the right upper lobe posteriorly ?? Trachea and central airways are clear. No significant bronchial wall ?? thickening. No bronchiectasis. ? Visualized portions of the upper abdomen are unremarkable. ?? Mild spondylosis. No fracture identified. ? IMPRESSION: ?? 1. No evidence of pulmonary embolism. ?? 2. Right upper lobe pneumonia. ?? 3. Trace left pleural effusion. ? This document has been electronically signed by: Rasta Womack MD on ?? 10/01/2024 17:32:33 ? Dictated By: ?Rasta Womack MD ? Signed By: ?<Electronically signed by Rasta Womack MD in OV> ?10/01/24 1733 ? DD/ 1732 ? TD/TT: 10/01/24 1732 ? Chief Clerk Shelter: ? Procedure Note Naldo Delgado - 10/01/[address] [place] [address] [address] Scan Report Signed Patient: Rochelle WangMR#: [id number] : 1975Acct:[id number] Age/Sex: 49 / FADM Date: 10/01/24 Loc: HO.ED Attending Dr: Ordering Physician: Nato Bernstein MD Date of Service: 10/01/24 Procedure(s): CT angio chest PE protocol Accession Number(s): [id number] cc: RADHA FRANK NP; Nato Bernstein MD Report Number: [id number]: Total DLP = 360.00 mGy-cm CLINICAL HISTORY: Shortness of breath, chest pain, right sided infil CT angiography of the chest with IV contrast. 3D/MIP post processing reconstructions were performed. COMPARISON: None FINDINGS: There are no intraluminal filling defects to suggest pulmonary embolism. No evidence of right heart strain. No supraclavicular or axillary lymphadenopathy. Ascending aorta and main pulmonary artery are normal in caliber. No pericardial effusion. Normal esophagus. Prominent right hilar and mediastinal lymph nodes, likely reactive. Small left pleural effusion. Minimal linear atelectasis versus scarring along the lung bases bilaterally. Ground-glass and consolidation within the right upper lobe posteriorly Trachea and central airways are clear. No significant bronchial wall thickening. No bronchiectasis. Visualized portions of the upper abdomen are unremarkable. Mild spondylosis. No fracture identified. IMPRESSION: 1. No evidence of pulmonary embolism. 2. Right upper lobe pneumonia. 3. Trace left pleural effusion. This document has been electronically signed by: Rasat Womack MD on 10/01/2024 17:32:33 Dictated By: Rasta Womack MD Signed By: <Electronically signed by Rasta Womack MD in OV> 10/01/24 173 DD/ 173 TD/TT: 10/01/241731 Chief Clerk Shelter: [facility] External Provider IMG CT PROCEDURES Edited Result - Final * SARS-CoV-2 RNA, Influenza A/B, and RSV RNA, Ql NAAT (10/01/2024 4:07 PM EDT) Influenza A PCR NEGATIVE Negative [facility] Influenza B PCR NEGATIVE Negative [facility] Resp Syncy Virus RNA Qual PCR NEGATIVE Negative [facility] SARS COV2 PCR NEGATIVE Negative [facility] Comment:All test results mus t be correlated with clinical findings.Negative results do not preclude SARS-CoV2, influenza Avirus, influenza B virus and/or RSV infectionand should not be used as the sole basis for treatment orother patient management decisions. Negative results must becombined with clinical observations, patient history, andepidemiological information.This test has not been evaluated for monitoring treatment ofinfection.This test has been authorized by the FDA under an EmergencyUse Authorization (EUA) for use by authorized laboratories.Testing performed on the [employer] GeneXpert utilizingreal-time RT-PCR.All SARS CoV2 and positive influenza A/B results arereported to [facility]. 10/01/2024 4:07 PM EDT 10/01/2024 4:20 PM EDT Generic External Data Provider LAB MICROBIOLOGY - GENERAL ORDERABLES Final Result Performing Organization Address [facility] Co de Phone Number [facility] [address] [place] [phone] * Lactic Acid (10/01/2024 4:07 PM EDT) Pathologist [facility] Lactic Acid 2.0 0.5 - 2.0 mmol/L [facility] 10/01/2024 4:07 PM EDT 10/01/2024 4:20 PM EDT Generic External Data Provider LAB BLOOD ORDERAB LES Final Result Performing Organization Address [facility] [address] [place] [phone] * High Sensitivity Troponin I (10/01/2024 12:44 PM EDT) Pathologist [facility] TROPONIN I HIGH SENSITIVITY <2.7 <3.5 - 17.0 ng/L [facility] Comment:The Vu high sens itivity Troponin-I results should beused in conjunction with other diagnostic information suchas ECG, clinical observations and information, and patientsymptoms to aid in the diagnosis of IA. 10/01/2024 12:4 4 PM EDT 10/01/2024 12:50 PM EDT Generic External Data Provider LAB BLOOD ORDERAB LES Final Result Performing Organization Address [facility] de Phone Number [facility] [address] [place] [phone] * (ABNORMAL) CBC auto differential (10/01/2024 12:44 PM EDT) White Blood Count 20.2(H) 4.8 - 10.8 X10*3/uL [facility] Red Blood Count 3.64(L) 4.20 - 5.50 X10*6/uL [facility] Hemoglobin 10.7(L) 12.0 - 16.0 g/dl [facility] Hematocrit 31.6(L) 37.0 - 47.0 % [facility] Mean Corpuscular Volume 86.8 80.0 - 98.0 fL [facility] Mean Corpuscular Hemoglobin 29.4 27.0 - 33.0 pg [facility] Mean Corpuscular HGB Conc 33.9 31.0 - 35.0 g/dl [facility] Red Cell Distribution Width 13.5 11.0 - 16.0 % [facility] Platelet Count 301 160 - 400 X10*3/uL [facility] Mean Platelet Volume 10.5 9.4 - 12.3 fL [facility] Neutrophils Percent Auto 88.7(H) 45 - 73 % [facility] Imm Gran Pct Auto 1.1(H) 0.0 - 0.4 % [facility] Lymphocytes Percent Auto 3.1(L) 20 - 40 % [facility] Monocytes Percent Auto 6.6 2 - 11 % [facility] Eosinophils Percent Auto 0.1 0 - 4 % [facility] Basophils Percent Auto 0.4 0 - 2 % [facility] NRBC Pct Auto 0.0 0.0 - 0.2 /100WBC [facility] Neutrophils Absolute Auto 17.9(H) 2.0 - 8.3 x10*3/uL [facility] Imm Gran Abs Auto 0.23(H) 0.00 - 0.03 X10*3/uL [facility] Lymphocytes Absolute Auto 0.6(L) 1.2 - 4.9 X10*3/uL [facility] Monocytes Absolute Auto 1.3(H) 0.1 - 1.2 X10*3/uL [facility] Eosinophils Absolute Auto 0.0 0.0 - 0.4 X10*3/uL [facility] Basophils Absolute Auto 0.1 0.0 - 0.2 X10*3/uL [facility] NRBC Abs Auto 0.000 0.0 - 0.012 X10*3/uL [facility] 10/01/2024 12:4 4 PM EDT 10/01/2024 12:50 PM EDT us Generic External Data Provider LAB BLOOD ORDERAB LES Final Result [facility] [address] [place] [phone] [phone] * (ABNORMAL) Comprehensive Metabolic Panel (10/01/2024 12:44 PM EDT) Sodium 133(L) 135 - 145 mmol/L [facility] Potassium 3.8 3.3 - 5.1 mmol/L [facility] Chloride 104 96 - 108 mmol/L [facility] Carbon Dioxide 19(L) 22 - 29 mmol/L [facility] Anion Gap 14 12 - 20 [facility] Urea Nitrogen (BUN) 11 9 - 16 mg/dL [facility] Creatinine, Serum 0.73 0.5 - 1.4 mg/dL [facility] Creatinine Clr Calc Pharmacy 108.0 [facility] Comment:Provided height and weight: 162.56 cm,97.522 kg.eGFR (calculated from the MDRD study equation) and eCrCl(calculated from the Cockcroft-Gault equation) are based ondifferent parameters and may not yield comparable results.If eCrCl result is absurd, please check patient'sheight/weight. Estimated Glomerular Filt Rate >60 [facility] Comment:Chronic Kidney Disea se: Estimated GFR < 60 mL/min/1.18n4Abieaf Kidney Disease: Estimated GFR < 15 mL/min/1.73m2 Glucose 96 60 - 115 mg/dL [facility] Calcium 9.2 8.4 - 10.2 mg/dL [facility] Bilirubin, Total 1.8(H) 0.0 - 1.0 mg/dL [facility] Aspartate Amino Transferase 20 5 - 31 U/L [facility] Alanine Aminotransferase 8 0 - 31 U/L [facility] Total Protein 7.1 6.5 - 8.0 g/dL [facility] Albumin Level 3.5 3.5 - 5.0 g/dL [facility] Alkaline Phosphatase 107 39 - 117 U/L [facility] 10/01/2024 12:4 4 PM EDT 10/01/2024 12:50 PM EDT us Generic External Data Provider LAB BLOOD ORDERAB LES Final Result [facility] [address] [place] [phone] * (ABNORMAL) Lipid Panel, Standard (04/20/2023 10:13 AM EDT) Triglycerides 81 <150 mg/dL [facility] Comment:Desirable Triglyceri de: less than 150 mg/dLBorderline High Triglyceride 150-199 mg/dLHigh Triglyceride: 200-499 mg/dLVery High Triglyceride: greater than or equal to 5OO mg/dL Cholesterol 163 <200 mg/dL [facility] Comment:Desirable Cholestero l: less than 200 mg/dLBorderline High Cholesterol: 200-239 mg/dLHigh Cholesterol: greater than 239 mg/dL LDL Cholesterol Calculated 105(H) <100 mg/dL [facility] Comment:Desirable LDL: less than 100 mg/dLNear Optimal/Above Optimal LDL: 110- 129 mg/dLBorderline High LDL: 130-159 mg/dLHigh LDL: 160-189 mg/dLVery High LDL: greater than or equal to 190 mg/dL HDL Cholesterol 42 >40 mg/dL [facility] Comment:Desirable HDL: great er than 40 mg/dL Note: This HDL assay may give artificially low results in patients with liver disease. Blood Venous blood specimen / Unknown 04/20/2023 10:13 AM EDT 04/20/2023 11:19 AM EDT us Radha [facility] LAB BLOOD ORDERABLES Final Resul t Performing Organization Address City/[facility]/ZIP Co de Phone Number [facility] [address] [place] [phone] [phone] * HIV Ab/Ag (HAYLEE INGRID) (03/17/2023 2:09 PM EDT) HIV AB/AG Nonreactive Nonreactive [facility] Comment:HIV-1 p24 Ag and/or HIV-1/HIV-2 Ab not detected.A test result that is nonreactive does not exclude thepossibility of exposure to or infection with HIV-1 and/orHIV-2. Nonreactive results in this assay for individualswith prior exposure to HIV-1 and/or HIV-2 may be due toantigen and antibody levels that are below the limit ofdetection of this assay.The [employer] HIV Ag/Ab Combo assay result andsupplemental assay results should be interpreted inconjunction with the patient's clinical presentation,history and other laboratory results. If the results areinconsistent with clinical evidence, additional testing issuggested to confirm the result. 03/17/2023 2:09 PM EDT 03/17/2023 4:01 PM EDT Mandy Saini MD LAB BLOOD ORDERAB LES Final Result Performing Organization Address [facility]/ZIP Co de Phone Number [facility] [address] [place] [phone] [phone] * Hepatitis C Antibody with Reflex to HCV, RNA, Quantitative, Real-Time PCR (03/17/2023 2:09 PM EDT) Hepatitis C Antibody Nonreactive Nonreactive [facility] Comment:Antibodies to HCV no t detected; does not exclude early acuteHCV infection. Blood Venous blood specimen / Unknown 03/17/2023 2:09 PM EDT 03/17/2023 4:01 PM EDT Mandy Saini MD LAB BLOOD ORDERAB LES Final Result Performing Organization Address [facility]/ZIP Co de Phone Number [facility] [address] [place] [address] [phone] * THINPREP PAP (12/16/2020 11:33 AM EDT) Clinical Information: None given [facility] COMMENT SEE COMMENT [facility] Comment: EXPLANATORY NOTE: ? The Pap is a screening test for cervical cancer. It is ?? not a diagnostic test and is subject to false negative ?? and false positive results. It is most reliable when a ?? satisfactory sample, regularly obtained, is submitted ?? with relevant clinical findings and history, and when ?? the Pap result is evaluated along with historic and ?? current clinical information. ?? Sweatband Flanger : SEE COMMENT [facility] Comment: GSG, CT(ASCP) CT screening location: [address] ??[address] Interpretation/R esult: Negative for intraepithelial lesion or malignancy. [facility] LMP: 12/08/2020 [facility] Prev. BX: NONE [facility]IVEN [facility] Prev. PAP: NONE GIVEN [facility] SOURCE: Cervix [facility] Statement Of Adequacy: SEE COMMENT [facility] Comment: Satisfactory for evaluation. Endocervical/transformation zone component absent. 12/16/2020 11:3 3 AM EDT Mey Haile CNM LAB PATHOLOGY ORDERABLES Final Result Performing Organization Address [facility]/ZIP Co de Phone Number [facility] [address] * HPV mRNA E6/E7 (12/16/2020 11:33 AM EDT) HPV nRNA E6/E7 Not Detected Not Detected [facility] Comment: Methodology: Office Runner-Mediated Amplification This assay detects E6/E7 viral messenger RNA (mRNA) from 14 high-risk HPV types (16,18,31,33,35,39,45,51,52,56,58,59,66,68). ? The analytical performance characteristics of this assay have been determined by [facility]. The modifications have not been cleared or approved by the FDA. This assay has been validated pursuant to the CLIA regulations and is used for clinical purposes. ?? For additional information, please refer to http://education.PocketSuite/faq/XJQ147z0 (This link if provided for information/ educational purposes only.) 12/16/2020 11:3 3 AM EDT us Mey YIP LAB BLOOD ORDERABLES Catherine simon Result [facility] [address] from Last 3 Months or Most Recently Relevant to Health Maintenance Insurance [employer] Illum[employer] C3 Care Teams Horseradish Maker Relationship Specialty Start Date End Date Radha Frank ANP [address] [place] [address] PCP - General Family Medicine 11/26/19 José Miguel Mueller FNP [address] [place] [address] [place] Joshi [address] Nurse Practitioner Family Medicine 05/29/23
--- OUTSIDE RECORDS SUMMARY | 2024-10-22 12:24 | XMS_ITS | Encounter Summary ---
Author Organization [employer] Address [address] [facility] 7[address] [place] [address] Care Team Providers Care Elevated Guard Name Role Phone Sofiya Corona Primary Care Provider [phone] José Miguel Mueller Unavailable Unavailable Reason for Visit * Reason Onset Date Comments Med Refill 04/17/2024 Encounter Details Date Type Department Care Team ([facility] st Contact Info) Description 04/17/2024 Telephone [facility] [address] [place] [address] Sofiya Corona ANP [address] [place] [address] Med Refill Social History Tobacco Use Types Packs/Day Years Used Date Smoking Tobacco: Every Day Cigarettes Passive Smoke Exposure: Current Smokeless Tobacco: Never Depression Answer Date Recorded Patient Health Questionnaire-9 Score 19 01/22/2024 Patient Health Questionnaire-9 Score 19 01/22/2024 Last PHQ-9: Questionnaire Data Not on file 0 01/22/2024 Housing Stability Answer Date Recorded What is your housing situation today? I have shashi espinoza 05/08/[address] you li ve. Do you have problems with any of the following? None of the above 05/08/2023 Food Insecurity Answer Date Recorded Within the past 12 months, y ou worried that your food would run out before you got money to buy more: Never True 05/08/2023 Within the past 12 months,th e food you bought just didn't last and you didn't have enough money to get more: Never True Transportation Answer Date Recorded In the past 12 months, has l ack of transportation kept you from medical appts, meetings, work or from getting things needed for daily living? Yes, it has kept me from medical appointments or getting medications. 04/18/2023 Utilities Answer Date Recorded In the past 12 months, has t he electric, gas, oil or water company threatened to shut off services in your home? No 05/08/2023 Depression Answer Date Recorded Patient Health Questionnaire-2 Score 6 01/22/2024 Comments No Sex and Gender Information Value Date Recorded Sex Assigned at Female 05/09/2022 10:14 AM EDT Legal Sex Female 10:14 AM EDT Gender Identity Female 05/09/2022 10:14 AM EDT Sexual Orientation Bisexual 05/09/2022 10 :14 AM EDT documented as of this encounter Miscellaneous Notes * Telephone Encounter - Alfred Mendoza - 04/17/2024 12:29 PM EDT TC from pt requesting medication refill. Medications needing refill: clonazePAM (KlonoPIN) 1 MG tablet To be sent to: [facility] - [place], [place] - [address] [place] [address] documented in this encounter Plan of Treatment Upcoming Encounters Date Type Department Care Team (Late st Contact Info) Description 12/20/2024 11:00 AM EDT Office Visit [facility] [address] [place] [address] Sofiya Corona ANP [address] [place] [address] documented as of this encounter Visit Diagnoses Not on filedocumented in this encounter Additional Health Concerns Assessment Noted Time PHQ-9 Depression Total Score: 19 024 9:24 AM EDT documented as of this encounter Care Teams Elevated Guard Relationship Specialty Start Date End Date Sofiya Corona ANP [address] [place] [phone] PCP - General Family Medicine 11/26/19 José Miguel Mueller FNP [address] [place] [phone] Nurse Practitioner Family Medicine 05/29/23 documented as of this encounter
--- OUTSIDE RECORDS SUMMARY | 2024-10-22 12:24 | XMS_ITS | Encounter Summary ---
Author Organization [employer] Address [address] [facility] 7t [place] [address] Care Team Providers Care Division Sales Manager Name Role Phone Sofiya Corona Primary Care Provider [phone] José Miguel Mueller Unavailable Unavailable Reason for Visit * Reason Onset Date Comments Med Refill 01/18/2024 Encounter Details Date Type Department Care Team ([facility] st Contact Info) Description 01/18/2024 Telephone [facility] [address] [place] [address] Sofiya Corona ANP [address] [place] [address] Med Refill Social History Tobacco Use Types [...] encounter Miscellaneous Notes * Telephone Encounter - Bety Cummings - 01/18/2024 10:34 AM EDT TC from pt requesting medication refill. Medications needing refill : clonazePAM (KlonoPIN) 1 MG tablet To be sent to: [facility] - [place], [place] - [address] [place] [address] documented in this encounter Plan of Treatment Upcoming Encounters Date Type Department Care Team ([facility] st Contact Info) Description 12/20/2024 11:00 AM EDT Office Visit [facility] [address] [place] [address] Sofiya Corona ANP [address] [place] [address] documented as of this encounter Visit Diagnoses Not on filedocumented in this encounter Additional Health Concerns Assessment Noted Time PHQ-9 Depression Total Score: 14 024 11:01 AM EDT documented as of this encounter Care Teams Division Sales Manager Relationship Specialty Start Date End Date Sofiya Corona ANP [address] [place] [phone] PCP - General Family Medicine 11/26/19 José Miguel Mueller FNP [address] [place] [phone] Nurse Practitioner Family Medicine 05/29/23 documented as of this encounter
--- OUTSIDE RECORDS SUMMARY | 2024-10-22 12:24 | XMS_ITS | Encounter Summary ---
Author Organization [employer] Address [address] [facility] 7t [place] [address] Care Team Providers Care Top Frame Fitter Name Role Phone Sofiya Corona Primary Care Provider [phone] José Miguel Mueller Unavailable Unavailable Encounter Details Date Type Department Care Team ([facility] Contact Info) Description 01/18/2024 Telephone [facility] [address] [place] [address] Sofiya Corona ANP [address] [place] [address] Social History Tobacco Use Types Packs/Day Years [...] AM EDT documented as of this encounter Plan of Treatment Upcoming Encounters Date Type Department Care Team (Late st Contact Info) Description 12/20/2024 11:00 AM EDT Office Visit [facility] [address] [place] [phone] Sofiya Corona ANP [address] [place] [address] documented as of this encounter Visit Diagnoses Not on filedocumented in this encounter Additional Health Concerns Assessment Noted Time PHQ-9 Depression Total Score: 14 024 11:01 AM EDT documented as of this encounter Care Teams Top Frame Fitter Relationship Specialty Start Date End Date Sofiya Corona ANP [address] [place] [phone] PCP - General Family Medicine 11/26/19 José Miguel Mueller FNP [address] [place] [address] Nurse Practitioner Family Medicine 05/29/23 documented as of this encounter
--- OUTSIDE RECORDS SUMMARY | 2024-10-22 12:24 | XMS_ITS | Encounter Summary ---
Author Organization [employer] Address [address] [facility] 7 [place] [address] Care Team Providers Care Exceptional Children Teacher Assistant Name Role Phone Sofiya Corona ANP Primary Care Provider José Miguel Mueller Unavailable Unavailable Reason for Visit * Reason Onset Date Comments Med Refill 03/15/2023 Encounter Details Date Type Department Care Team (Late st Contact Info) Description 03/15/2023 Telephone [facility] [address] [place] [address] Sofiya Corona ANP [address] [place] [address] Med Refill Social History Tobacco Use Types Packs/Day Years Used Date Smoking Tobacco: Every Day Cigarettes Passive Smoke Exposure: Current Smokeless Tobacco: Never PHQ-2 Answer Date Recorded Patient Health Questionnaire-2 Score 6 01/23/2023 Comments Unknown Sex and Gender Information Value Date Recorded Sex Assigned at Female 05/09/2022 10:14 AM EDT Legal Sex Female 10:14 AM EDT Gender Identity Female 05/09/2022 10:14 AM EDT Sexual Orientation Bisexual 05/09/2022 10 :14 AM EDT documented as of this encounter Miscellaneous Notes * Telephone Encounter - Naty Owens - 03/15/2023 9:54 AM EDT Tc from pt requesting medication refill on clonazePAM (KlonoPIN) 1 MG tablet documented in this encounter Plan of Treatment Upcoming Encounters Date Type Department Care Team (Late st Contact Info) Description 12/20/2024 11:00 AM EDT Office Visit [facility] [address] [place] [address] Sofiya Corona ANP [address] [place] [address] documented as of this encounter Visit Diagnoses Not on filedocumented in this encounter Additional Health Concerns Assessment Noted Time PHQ-9 Depression Total Score: 22 023 11:21 AM EDT documented as of this encounter Care Teams Exceptional Children Teacher Assistant Relationship Specialty Start Date End Date Sofiya Corona ANP [address] [place] [id number] PCP - General Family Medicine 11/26/19 José Miguel Mueller FNP [address] [place] [address] Nurse Practitioner Family Medicine 05/29/23 documented as of this encounter
--- OUTSIDE RECORDS SUMMARY | 2024-10-22 12:24 | XMS_ITS | Encounter Summary ---
Author Organization [employer] Address [address] [facility] 7t [place] [address] Care Team Providers Care Supervisor [employer] Name Role Phone Sofiya Corona Primary Care Provider [phone] José Miguel Mueller Unavailable Unavailable Reason for Visit * Reason Comments Med Refill Encounter Details Date Type Department Care Team ([facility] st Contact Info) Description 10/05/2024 Refill [facility] [address] [place] [address] Sofiya Corona ANP [address] [place] [address] Moderate persistent asthma without complication Social History Tobacco Use Types Packs/Day Years [...] Description 12/20/2024 11:00 AM EDT Office Visit [facility] [address] [place] [address] Sofiya Corona ANP [address] [place] [address] documented as of this encounter Visit Diagnoses Diagnosis Moderate persistent asthma without complication documented in this encounter Additional Health Concerns Assessment Noted Time PHQ-9 Depression Total Score: 26 025 11:05 AM EDT documented as of this encounter Care Teams Supervisor [employer] Relationship Specialty Start Date End Date Sofiya Corona ANP [address] [place] [phone] PCP - General Family Medicine 11/26/19 José Miguel Mueller FNP [address] [place] [phone] Nurse Practitioner Family Medicine 05/29/23 documented as of this encounter
--- OUTSIDE RECORDS SUMMARY | 2024-10-22 12:24 | XMS_ITS | Clinical Summary ---
Author Organization [facility] Address [address] [place] [address] Care Team Providers Care Food Service Counter Clerk Name Role Phone Unavailable Primary Care Provider Unavailabl e Source Comments PLEASE NOTE, if this patient is a minor, it may be UNLAWFUL to discuss sensitive information that is contained in these records (such as FAMILY PLANNING, MENTAL HEALTH or SUBSTANCE ABUSE) with the minor patient's parent or other person without the patient's specific authorization.[facility] Allergies Active Allergy Reactions Criticality Noted Date Comments Benzoyl Peroxide 11/20/2012 Other reaction(s): local irritation Codeine Nausea and Vomiting,SOB High 02/16/2012 Other reaction(s): upset stomach Hydrocodone-Acetamino phen Other (See Comments),Fever 02/15/2024 Allergic to all narcotics, vomiting, fever, malaise Misc. Devices 02/15/2024 Tretinoin 11/20/2012 Other reaction(s): local irritation Medications SYMBICORT 160-4.5 mcg/actuation inhaler Inhale 2 Puffs into the lungs 2 (two) times daily Active cetirizine (ZYRTEC) 10 mg tablet Take 10 mg by mouth once daily Active montelukast (SINGULAIR) 10 mg tablet Take 10 mg by mouth once daily Active benztropine (COGENTIN) 0.5 mg tabletIndication s:Bipolar affective disorder, currently depressed, moderate (HCC-CMS) Take 1 Tablet by mouth 2 (two) times daily 60 Tablet 2 07/25/2024 Active lamoTRIgine (LAMICTAL) 200 mg tabletIndication s:Bipolar affective disorder, currently depressed, moderate (HCC-CMS) Take 1 Tablet by mouth 2 (two) times daily 60 Tablet 2 07/25/2024 Active QUEtiapine (SEROQUEL) 400 mg tabletIndication s:Bipolar affective disorder, currently depressed, moderate ([facility]) Take 1 Tablet by mouth 2 (two) times daily for 30 days 60 Tablet 2 07/25/2024 Active clonazePAM (KLONOPIN) 1 mg tabletIndication s:Post-traumatic stress disorder, unspecified TAKE 1 TABLET BY MOUTH TWICE DAILY 60 Tablet 2 08/27/2024 Active Active Problems Problem Noted Date Diagnosed Date PTSD (post-traumatic stress disorder) 02/15/2024 Overview (02/15/2024): The patient has a diagnosis of PTSD due to a homicidal attempt, characterized by flashbacks, nightmares, and severe anxiety. These symptoms contribute to social isolation and emotional distress. Assessment & Plan (07/25/2024 9:45 AM EST): PTSD - Assessment: hypervigilance, anxious state - Plan: Continue current psychiatric management and supportive therapy. - Continue Clonazepam 1 mg PO BID Assessment & Plan (05/02/2024 11:40 AM EDT): PTSD - Assessment: still having moments of flashbacks and hypervigilance, reports that she feels like someone is there worsened when she ran out of medication for a day. - Plan: Continue current psychiatric management and supportive therapy. - Continue Clonazepam 1 mg PO BID refilled sent to 2 rf Assessment & Plan (04/04/2024 12:55 PM EDT): PTSD - Assessment: still having moments of flashbacks and hypervigilance, reports that she feels like someone is there - Plan: Continue current psychiatric management and supportive therapy. - Continue Clonazepam 1 mg PO BID ( no refill needed ) No changes to medication Assessment & Plan (03/19/2024 3:26 PM EDT): PTSD - Assessment: still having moments of flashbacks and hypervigilance, reports that she feels like someone is there - Plan: Continue current psychiatric management and supportive therapy. - Continue Clonazepam 1 mg PO BID No changes to medication Assessment & Plan (02/15/2024 3:07 PM EDT): PTSD - Assessment: The patient has a diagnosis of PTSD, characterized by flashbacks, nightmares, and severe anxiety. These symptoms contribute to social isolation and emotional distress. - Plan: Continue current psychiatric management and supportive therapy. - Continue Clonazepam 1 mg PO BID No changes to medication Vulvar itching 03/18/2023 Overview (02/15/2024): Last Assessment & Plan: Urine dipstick neg. -Will treat empirically for fungal infection w Clotrimazole cream. -Pt self-collected vaginal swab for bacterial vaginosis test, Gn-Ch, and other STIs were requested to be done by pt. Bipolar disorder ([facility]) 07/26/2022 Overview (02/15/2024): Last Assessment & Plan: Plus PTSD. Extensive trauma history. Dealing with very stressful legal situations. Irritability and reactivity still bothersome, but better than it has been historically. She will continue Seroquel 400 mg at bedtime, Seroquel 200 mg morning and noon, Lamotrigine 200 mg BID, Klonopin 1 mg BID. Continue with therapist. Since this provider is retiring, she will be referred to new [facility] psychiatric prescriber. Patient is aware that these will be televisits, and that new provider will not be an employee of [facility]. Gives verbal consent to share protected health information. Any issues or concerns call the health center. All her questions were answered and I have wished her well. She agrees with the plan. Assessment & Plan (07/25/2024 9:42 AM EST): Bipolar Disorder - Assessment: Stable mood for patient, no anger outburst, - Plan: - Continue current medications: - Seroquel (quetiapine) 400 mg in the morning and 400 mg at night. - Lamotrigine 200 mg in the morning and 200 mg at night. - Continue cogentin 0.5 mg BID - Continue Therapy - RTC 3 months. Assessment & Plan (05/02/2024 11:38 AM EDT): Bipolar Disorder - Assessment: Stable mood for patient, no anger outburst, but continues to be easy to anger - Plan: - Continue current medications: - Seroquel (quetiapine) 400 mg in the morning and 400 mg at night. - Lamotrigine 200 mg in the morning and 200 mg at night. - Continue cogentin 0.5 mg BID - Continue Therapy - RTC 3 months. Assessment & Plan (04/04/2024 12:54 PM EDT): Bipolar Disorder - Assessment: Stable mood for patient, no anger outburst - Plan: - Continue current medications: - Seroquel (quetiapine) 400 mg in the morning and 400 mg at night. - Lamotrigine 200 mg in the morning and 200 mg at night. - Continue cogentin 0.5 mg BID - Continue Therapy - RTC 1 month. Assessment & Plan (03/19/2024 3:25 PM EDT): Bipolar Disorder - Assessment: Patient still having frequent anger outburst in public but reports that her mood is the best it has been in a long time. - Plan: - Continue current medications: - Seroquel (quetiapine) 400 mg in the morning and 400 mg at night. - Lamotrigine 200 mg in the morning and 200 mg at night. Positive AIMS score, I will start low dose Benztropine for now and follow-up in 2 weeks, consider changing Seroquel but is skeptical of any change Assessment & Plan (02/15/2024 3:03 PM EDT): Bipolar Disorder - Assessment: The patient has a history of bipolar disorder, currently managed with Seroquel (quetiapine) 800 mg daily and Lamotrigine 400 mg daily. She reports these medications help control mood swings and anger. No recent manic episodes were reported, but she experienced an anger outburst last week during a court appearance. - Plan: - Continue current medications: - Seroquel (quetiapine) 400 mg in the morning and 400 mg at night. - Lamotrigine 200 mg in the morning and 200 mg at night. 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 02/15/2024 Dysplasia of cervix 12/14/2011 02/15/20 24 Encounters Date Type Department Care Team Description 07/25/2024 12:00 PM EST Behavioral Health Visit [facility] [address] [place] [id number] Debbi Lux APRN Bipolar affective disorder, currently depressed, moderate ([facility]) (Primary Dx); PTSD (post-traumatic stress disorder) from Last 3 Months Immunizations Immunization Administration Dates Next Due Flu, Multi Dose 0.5 ML 04/12/2019,2017,04/17/2017,06/06,04/07/2015 Hep B, Adult/Adol (ENERGIX/RECOMBIVAX) 1 ,10/01/2001,10/26/1999,10/10 INFLUENZA, SEASONAL, INJECTABLE 04/08/2014 PNEUMOCOCCAL CONJUGATE PCV 2 0 (Prevnar) 04/20/2023 PNEUMOCOCCAL POLYSACCHARIDE PPV23 02/21/2013 [facility] State Funded Flu Vaccine 04/15/2013, 012 TDAP 06/04/2012 Td (adult), 5 Lf tetanus tox oid, preservative free 06/12/2015 Td(adult),2 Lf tetanus toxoid,preservative free 10/26/1999 Family History Medical History Relation Name Comments Schizophrenia Mother Relation Name Status Comments Brother Alive 2 boys Father Mother Alive Sister Alive 3 sister Son Alive 3 sons Social History Tobacco Use Types Packs/Day Years Used Date Smoking Tobacco: Every Day Cigarettes 0.5 26.3 Started: 1998 Smokeless Tobacco: Never Tobacco Cessation:Ready to Q uit: Not Asked; Counseling Given: Not Answered Alcohol Use Standard Drinks/Week Comments Not Currently 0 (1 standard drink = 0.6 oz pur e alcohol) rarely drinks Social Connections Answer Date Recorded Connectedness 0 03/21/2024 Financial Resource Strain Answer Date R ecorded Financial Resource Strain 0 2023 Stress Answer Date Recorded Stress 0 02/13/2024 Physical Activity Answer Date Recorded Physical Activity 0 02/13/2024 Food Insecurity Answer Date Recorded Food 0 04/04/2024 Transportation Needs Answer Date Record ed Transportation 0 02/13/2024 Housing Stability Answer Date Recorded Housing 0 02/13/2024 Safety and Environment Answer Date Khoi rded Safety 0 02/13/2024 Utilities Answer Date Recorded Utilities 0 02/13/2024 Employment Answer Date Recorded Stress 0 03/21/2024 Comments Unknown Sex and Gender Information Value Date Recorded Sex Assigned at Not on file Legal Sex Female 5:44 AM PDT Gender Identity Not on file Sexual Orientation Not on file Occupation Industry Job Start Date Job End Date Not on file Not on file Not on file Not on file Plan of Treatment Health Maintenance Due Date Last Done Comments Anxiety Screening 1977 Depression Monitoring 1977 HPV Screening 1977 Pap + HPV 1977 Tobacco Cessation Counseling (#1) 1977 Relationship Safety Screening/Counseling 1992 Hypertension Screening (#1) 1995 Cervical Cancer Screening 1998 Pap Smear 1998 Breast Cancer Screening (Mammogram) 2017 CT Colonography 2022 Colonoscopy 2022 Colorectal Cancer Screening 2022 FIT/gFOBT 2022 Fecal DNA 2022 Flexible Sigmoidoscopy 2022 [id number]-10 ( season) 2024 Imm-Influenza (#1) 2024 04/12/2019, 1 , 04/17/2017, Additional history exists Alcohol and Drug Screen 07/10/2024 Imm-DTaP/Tdap/Td (3 - Td or Tdap) 06/12/2025 06/12/2015, 06/04/2012, 10/26/1999 Diabetes Screening 04/12/2027 04/12/2024, 1 , 03/30/2020 Lipid Screening 04/20/2028 04/20/2023 Imm-Hepatitis B Completed 05/06/2005, 09/08, 10/26/1999, Additional history exists HIV Screening Completed 03/30/2020 Hepatitis C Screening Completed 03/17/2023 Imm-Pneumococcal Completed 04/20/2023, 02/21/2013 Cervical Ablation/Cold-Knife Conization Discontinued Cervical Cryotherapy Discontinued Colposcopy Discontinued Endometrial Biopsy Discontinued Excision/Leep Discontinued HPV Genotyping Discontinued Vaginal Pap Discontinued Vulvoscopy Discontinued Insurance [place] MEDICA[place] [facility]
--- OUTSIDE RECORDS SUMMARY | 2024-10-22 12:24 | XMS_ITS | Encounter Summary ---
Author Organization [employer] Address [address] [facility] 7t [place] [address] Care Team Providers Care Graphic Design Intern Name Role Phone Sofiya Corona Primary Care Provider [phone] José Miguel Mueller Unavailable Unavailable Reason for Visit * Reason Comments Med Refill Encounter Details Date Type Department Care Team ([facility] st Contact Info) Description 06/24/2024 Refill [facility] [address] [place] [address] Sofiya Corona ANP [address] [place] [address] Gastroesophageal reflux disease, unspecified whether esophagitis present Social History Tobacco Use Types Packs/Day Years Used Date Smoking Tobacco: Every Day Cigarettes Passive Smoke Exposure: Current Smokeless Tobacco: Never Depression Answer Date Recorded Patient Health Questionnaire-9 Score 19 01/22/2024 Patient Health Questionnaire-9 Score 19 01/22/2024 Last PHQ-9: Questionnaire Data Not on file 0 01/22/2024 Housing Stability Answer Date Recorded What is your housing situation today? I have housing today, but I am worried about losing housing in the future 05/07/[address] you li ve. Do you have problems with any of the following? Not on file 05/07/2024 Food Insecurity Answer Date Recorded Within the past 12 months, y ou worried that your food would run out before you got money to buy more: Never True 05/07/2024 Within the past 12 months,th e food [...] Recorded Patient Health Questionnaire-2 Score 6 01/22/2024 Internet Access Answer Date Recorded Internet Access [...] 12/20/2024 11:00 AM EDT Office Visit [facility] [address] [place] [address] Sofiya Corona ANP [address] [place] [address] documented as of this encounter Visit Diagnoses Diagnosis Gastroesophageal reflux disease, unspecified whether esophagitis present documented in this encounter Additional Health Concerns Assessment Noted Time PHQ-9 Depression Total Score: 19 024 9:24 AM EDT documented as of this encounter Care Teams Graphic Design Intern Relationship Specialty Start Date End Date Sofiya Corona ANP [address] [place] [phone] PCP - General Family Medicine 11/26/19 José Miguel Mueller FNP [address] [place] [address] Nurse Practitioner Family Medicine 05/29/23 documented as of this encounter
--- OUTSIDE RECORDS SUMMARY | 2024-10-22 12:24 | XMS_ITS | Encounter Summary ---
Author Organization [employer] Address [address] [facility] 7t [place] [address] Care Team Providers Care Global Program Manager Name Role Phone Sofiya Corona Primary Care Provider [phone] José Miguel Mueller Unavailable Unavailable Reason for Visit * Reason Comments Med Refill Encounter Details Date Type Department Care Team (Late Contact Info) Description 11/10/2022 Refill [facility] [address] [place] [phone] Cooper Horton FNP Nasal congestion Social History Tobacco Use Types Packs/Day Years Used Date Smoking Tobacco: Every Day Cigarettes Passive Smoke Exposure: Current Smokeless Tobacco: Never PHQ-2 Answer Date Recorded Patient Health Questionnaire-2 Score 5 10/11/2022 Comments Unknown Sex and Gender Information Value Date Recorded Sex Assigned at Female 05/09/2022 10:14 AM EDT Legal Sex Female 10:14 AM EDT Gender Identity Female 05/09/2022 10:14 AM EDT Sexual Orientation Bisexual 05/09/2022 10 :14 AM EDT COVID-19 Exposure Response Date Recorded In the last 10 days, have yo u been in contact with someone who was confirmed or suspected to have Coronavirus/COVID-19? Unable to assess 11/01/2022 2:37 PM EDT documented as of this encounter Plan of Treatment Upcoming Encounters Date Type Department Care Team (Late Contact Info) Description 12/20/2024 11:00 AM EDT Office Visit [facility] MEDICINE [address] [place] [address] Sofiya Corona ANP [address] [place] [address] documented as of this encounter Visit Diagnoses Diagnosis Nasal congestion Other diseases of nasal cavity and sinuses documented in this encounter Additional Health Concerns Assessment Noted Time PHQ-9 Depression Total Score: 15 023 1:06 PM EDT documented as of this encounter Care Teams Global Program Manager Relationship Specialty Start Date End Date Sofiya Corona ANP [address] [place] [address] PCP - General Family Medicine 11/26/19 José Miguel Mueller FNP [address] [place] [address] Nurse Practitioner Family Medicine 05/29/23 documented as of this encounter
--- OUTSIDE RECORDS SUMMARY | 2024-10-22 12:24 | XMS_ITS | Encounter Summary ---
Author Organization [employer] Address [address] [facility] 7t [place] [address] Care Team Providers Care Machine Lacer Name Role Phone Sofiya Corona Primary Care Provider [phone] José Miugel Mueller Unavailable Unavailable Encounter Details Date Type Department Care Team (Late st Contact Info) Description 09/01/2022 Orders Only [facility] [address] [place] [address] Trina West LPN Social History Tobacco Use Types Packs/Day Years Used Date Smoking Tobacco: Never Assessed PHQ-2 Answer Date Recorded Patient Health Questionnaire-2 Score 4 07/26/2022 Comments Unknown Sex and Gender Information Value [...] Description 12/20/2024 11:00 AM EDT Office Visit [facility] [address] [place], [place] [phone] Sofiya Corona ANP [address] [place], [place] [phone] documented as of this encounter Procedures Procedure Name Priority Date/Time Associated Diagnosis Comments HIV ANTIBODY/ANTIGEN (OR DP) Routine 03/17/2023 2:09 PM EDT HEPATITIS B SURFACE ANTIGEN, EIA Routine 03/17/2023 2:09 PM EDT documented in this encounter Results * Hepatitis B surface antigen, EIA (03/17/2023 2:09 PM EDT) Hepatitis B Surface Ag Negative Negative [facility] 03/17/2023 2:09 PM EDT 03/17/2023 4:01 PM EDT Mandy Saini MD LAB BLOOD ORDERAB LES Final Result Performing Organization Address [facility]/ZIP Co de Phone Number [facility] [address] [place] [address] [phone] * HIV Ab/Ag ([facility]) (03/17/2023 2:09 PM EDT) Pathologist [facility] HIV AB/AG Nonreactive Nonreactive [facility] Comment:HIV-1 p24 Ag and/or HIV-1/HIV-2 Ab not detected.A test result that is nonreactive does not exclude thepossibility of exposure to or infection with HIV-1 and/orHIV-2. Nonreactive results in this assay for individualswith prior exposure to HIV-1 and/or HIV-2 may be due toantigen and antibody levels that are below the limit ofdetection of this assay.The Targeted GrowthniTapstream HIV Ag/Ab Combo assay result andsupplemental assay results should be interpreted inconjunction with the patient's clinical presentation,history and other laboratory results. If the results areinconsistent with clinical evidence, additional testing issuggested to confirm the result. 03/17/2023 2:09 PM EDT 03/17/2023 4:01 PM EDT us Mandy Saini MD LAB BLOOD ORDERAB LES Final Result Performing Organization Address [facility]/ZIP Co de Phone Number [facility] [address] [place] [address] [phone] documented in this encounter Visit Diagnoses Not on filedocumented in this encounter Additional Health Concerns Assessment Noted Time PHQ-9 Depression Total Score: 15 023 10:44 AM EST documented as of this encounter Care Teams Machine Lacer Relationship Specialty Start Date End Date Sofiya Corona ANP [address] [place] [address] PCP - General Family Medicine 11/26/19 José Miguel Mueller FNP [address] [place] [address] Nurse Practitioner Family Medicine 05/29/23 documented as of this encounter
== END 2024-10-22 11:41 | disposition home or self-care (01) ==
LOC: HO.HGI 10:20
PROVIDERS: PCP Nurse Practitioner Primary Care; Visit Provider Nurse Practitioner
DX: K21.9 Gastro-esophageal reflux disease without esophagitis (principal)
CPT/HCPCS: 99203

== ENCOUNTER → 2024-10-22 10:20 | Outpatient (BNVA) | payer MEDICAID, SELFPAY | PROVIDERS: PCP Nurse Practitioner Primary Care; Visit Provider Nurse Practitioner | DX: K21.9 Gastro-esophageal reflux disease without esophagitis (principal) | CPT/HCPCS: 99212 ==

== ENCOUNTER 2025-03-04 13:27 | Outpatient (AMB) | payer MEDICAID, SELFPAY ==
[2025-03-04 13:28] VITALS: BP 100/70; PULSE 122; BMI 33.7
--- NOTE | 2025-03-04 13:28 | A.OFFVIS_ITS ---
Vital Signs 03/04/25 13:28 Height 5 ft 4 in Weight 196 lb 3.382 oz BMI 33.7 BP 100/70 Blood Pressure Location Lt brachial Position Sitting Pulse 122 H Pulse Source Pulse Oximeter Intake Visit Reasons: EDUCATIONAL SPEECH LANGUAGE CLINICIAN/Sofiya Corona/Tachycardia Allergies codeine (CODEINE) Allergy (Severe, Verified 10/22/24 11:11) VOMITING, FEVER,CHILLS oxycodone Allergy (Severe, Verified 10/22/24 11:14) Nausea and Vomiting percocet Allergy (Severe, Uncoded 10/22/24 11:14) Nausea and Vomiting BENZOYL PEROXIDE Allergy (Unknown, Uncoded 10/21/24 14:50) UNKNOWN TRETINOIN Allergy (Unknown, Uncoded 10/21/24 14:50) UNKNOWN Medication List - Last Reconciled 03/04/25 by Osmel Torres MD albuterol sulfate 90 mcg/actuation (Ventolin HFA) 2 puffs inhalation Q4-6H PRN benztropine 0.5 mg PO DAILY budesonide-formoterol 160-4.5 mcg/actuation (Symbicort) 2 puffs inhalation BID cetirizine 10 mg PO DAILY clonazepam 1 mg PO BID PRN cyclobenzaprine 10 mg PO Q8H ibuprofen 600 mg PO Q8H PRN lamotrigine 200 mg PO BID montelukast 10 mg PO DAILY quetiapine 400 mg PO BID HPI Comments Details: Rochelle has been referred for consultation regarding tachycardia. Patient herself does not have any known cardiac issues. No known coronary disease or myocardial infarction or cardiomyopathy or in fact any other cardiac issues. She states that she is under lot of stress because of housing issues. Denies any palpitations. She gets some random episodes of chest tightness but sometimes has noticed it during walking as well as weather changes. History of smoking/asthma. [facility] Medical History History of cervical dysplasia Bipolar disorder Hypertension Chronic post-traumatic stress disorder (PTSD) Depression Anxiety Asthma Surgical History History of ankle surgery Hx of tubal ligation Family History (Updated 03/04/25 @ 13:35 by Teresita Dominguez) Father Liver cancer Paternal Grandmother Lung cancer Maternal Grandmother Cancer Mother FH: hyperthyroidism High blood pressure Social History Unable to assess alcohol history related to: Unable to respond Alcohol intake: never Patient Tobacco Use Status: Current everyday Tobacco user Substance Use Type: Marijuana and Unknown service: No Review of Systems Const Denies weakness ENT Denies dizziness Card Denies chest pain, Denies chest pain with activity, Denies syncope, Denies rapid heart rate, Denies pedal edema, Denies edema, Denies leg edema, Denies lightheadedness, Reports palpitations, Reports dyspnea, Denies dyspnea on exertion and Denies orthopnea Resp Denies cough, Reports dyspnea and Denies dyspnea on exertion GI Denies hematochezia and Denies change in stool character Musc Denies abnormal gait, Denies muscle cramps, Denies muscle weakness, Denies numbness, Denies radiating pain into limb and Denies tingling Neuro Denies abnormal gait, Denies dizziness, Denies syncope, Denies numbness, Denies tingling and Denies weakness Endo Reports palpitations Physical Exam Vital Signs: Last Vital Signs Pulse 122 H 03/04/25 13:28 BP 100/70 03/04/25 13:28 BMI result Body Mass Index 33.7 Assessment & Plan Assessment & Plan (1) Tachycardia: Code(s): R00.0 - Tachycardia, unspecified Category: Medical (2) Smoker: Code(s): F17.200 - Nicotine dependence, unspecified, uncomplicated Category: Social Hx Plan EKG from September shows sinus tachycardia at 127/Min. In the previous EKG from 2020, sinus rhythm at 84/Min. Available high sensitivity troponin is normal. Overall, asymptomatic sinus tachycardia, some chest squeezing type episodes, asthma, smoker. We will perform comprehensive workup including echocardiogram, stress test and Holter. Discussion Notes We talked about the need for an echocardiogram, stress test and Holter monitor to evaluate her chest pain and elevated heart rate. I advised her to continue using her asthma inhaler as prescribed and to monitor for any exacerbations. We also discussed her smoking cessation efforts and encouraged her to continue trying to quit. Patient was informed and verbally consented to the use of an ambient scribe for clinic note documentation during this visit. Orders: Orders ECG 3 day holter monitor Today R00.0 - Tachycardia, unspecified CA stress test Today R00.0 - Tachycardia, unspecified, R07.9 - Chest pain, unspecified CA echo transthoracic complete Today R00.0 - Tachycardia, unspecified Patient Instructions: - Take your anxiety medication as prescribed to help manage symptoms. - Undergo the recommended echocardiogram, stress test and Holter monitor tests. - Continue efforts to quit smoking and seek support if needed. Coding Level of Care Code New Pt Level 4 (17444) Complex EM visit Add On G2211 Diagnoses Tachycardia R00.0 Smoker F17.200
== END 2025-03-04 14:01 | disposition home or self-care (01) ==
LOC: HO.HCS 13:27
PROVIDERS: PCP Nurse Practitioner Primary Care; Visit Provider Internal Medicine
DX: R00.0 Tachycardia, unspecified (principal); F17.200 Nicotine dependence, unspecified, uncomplicated
CPT/HCPCS: 99204

== ENCOUNTER → 2025-03-04 13:27 | Outpatient (BNVA) | payer MEDICAID, SELFPAY | PROVIDERS: PCP Nurse Practitioner Primary Care; Visit Provider Internal Medicine | DX: R00.0 Tachycardia, unspecified (principal); F17.200 Nicotine dependence, unspecified, uncomplicated; I10 Essential (primary) hypertension; F41.9 Anxiety disorder, unspecified | CPT/HCPCS: 99202 ==

== ENCOUNTER → 2025-04-03 13:25 | Outpatient (REF) | payer MEDICAID, SELFPAY ==
--- NOTE | 2025-04-03 13:30 | CA_ITS ---
Transthoracic Echocardiogram Patient (Last, First, Middle): Rochelle Wang, Gender: F Date of : 1975 Age: 49 Procedure Date: 04/03/2025 Procedure Type: Transthoracic Echocardiogram Location: OP Height: 162. cm Weight: 90.72 kg BSA: 1.95 m2 Heart Rate: 97 bpm BP: 105 / 75 mmHg Rn Ortho: DEEDEE Gilmore MD: Osmel Torres MD Pit Operator: Mariano Simmons MD Symptoms: R00.0 - Tachycardia, unspecified Study Quality: Adequate ECG Rhythm: Sinus Conclusions: - Essentially normal study with grade 1 diastolic dysfunction Findings Left Ventricle Normal left ventricular size, thickness, and systolic function. The visually estimated ejection fraction is between 60-65%. Spectral Doppler is indicative of an impaired relaxation filling pattern. E/E prime ratio is <8, consistent with normal filling pressures. Evidence suggests grade I (mild) diastolic dysfunction. Right Ventricle Normal right ventricular cavity size. There is borderline right ventricular systolic function. Atria Both atria are normal in size. There is no evidence of interatrial shunt. Aortic Valve Normal aortic valve structure and function. There is no aortic valve stenosis. There is no aortic valve regurgitation. Mitral Valve Normal mitral valve structure and function. There is trace mitral valve regurgitation. There is no mitral valve stenosis. Pulmonic Valve The pulmonic valve is likely normal. There is trace pulmonic valve regurgitation. Tricuspid Valve Normal tricuspid valve structure. Tricuspid regurgitation envelope is inadequate for calculation of right ventricular systolic pressure. Normal right atrial pressure. Great Vessels All visible segments of the aorta are normal in size. The pulmonary artery was not well visualized. Venous The inferior vena cava is normal in size and collapses greater than 50% with inspiration. Pericardium/Pleural There is no evidence of pericardial effusion. Prior Study Comparison No prior study available for comparison. Measurements 2D Linear Measurements IVSd: 0.69 0.6-0.9/0.6-1.0 cm LVIDd: 4.11 3.9-5.3/4.2-5.9 cm LVIDd Index: 2.11 2.4-3.2/2.2-3.1 cm/m2 LVIDs: 2.98 2.0-3.6 cm LVPWd: 0.99 0.7-1.1 cm LA Diam: 2.90 2.7-3.8/3.0-4.0 cm LAIDs Index: 1.49 1.5-2.3 cm/m2 LV Mass: 129.56 67-162/88-224 g LV Mass Index: 66.44 43-95/49-115 g/m2 LVOT Diam: 2.00 3.0+(-)1.3 cm 2D Systolic Function EF 4C: 59.00 >55% EF 2C: 61.50 >55% EF BiP: 60.60 >55% Mitral Valve MV Pk E: 0.74 MV PK A: 0.93 MV Decel Time: 116.00 E/A: 0.80 E'Lateral: 7.01 E'Medial: 6.22 E/E' Med: 11.90 E/E' Lat: 10.60 PHT: 34.00 MVA PHT: 6.47 Decel [place]: 6.39 Aortic Valve AoV Pk Arjun: 1.12 AoV Mn Arjun: 0.81 AoV VTI: 0.22 AoV Pk Grad: 5.00 Aov Mn Grad: 3.00 PROSPER Cont.VTI: 1.84 LVOT LVOT Pk Arjun: 0.68 LVOT Mn Arjun: 0.52 LVOT VTI: 0.13 LVOT Pk Grad: 2.00 LVOT Mn Grad: 1.00 LVOT Diam: 2.00 LVOT Area: 3.14 Diastolic Function MV Pk E: 0.74 MV Pk A: 0.93 E/A: 0.80 E'Medial: 6.22 E/E' Med: 11.90 E' Laterial: 7.01 E/E' Lat: 10.60 Right Ventricle TAPSE (mm): 16.90 TVS' Arjun: 8.06 Tricuspid Valve RA Press: 3.00 Great Vessels Aorta Sinus of Valsalva: 2.80 2.0-3.5 cm Ao Asc: 2.80 2.1-3.4 cm Pulmonary Valve PV Pk Arjun: 0.84 Peak PV Grad: 3.00 Updated in Other Vendor System with Status of Final Mariano Simmons MD electronically signed on 04/03/2025 4:01:25 PM with status of Final
--- OUTSIDE RECORDS SUMMARY | 2025-04-03 18:00 | XMS_ITS | Clinical Summary ---
Author Organization [facility] Address [address] [place] [address] Care Team Providers Care Ammunition Assembly Ii Laborer Name Role Phone Unavailable Primary Care Provider [...] tabletIndication s:Bipolar affective disorder, currently depressed, moderate (CMS & HHS-HCC) Take 1 Tablet by mouth 2 (two) times daily 60 Tablet 2 07/25/2024 Active lamoTRIgine (LAMICTAL) 200 mg tabletIndication s:Bipolar affective disorder, currently depressed, moderate (CMS & HHS-HCC) Take 1 Tablet by mouth 2 (two) times daily 60 Tablet 2 07/25/2024 Active QUEtiapine (SEROQUEL) 400 mg tabletIndication s:Bipolar affective disorder, currently depressed, moderate (CMS & HHS-HCC) Take 1 Tablet by mouth 2 (two) [...] to be done by pt. Bipolar disorder ([facility]) 07/26/2022 Overview (02/15/2024): Last Assessment & Plan: [...] retiring, she will be referred to new [facility] psychiatric prescriber. Patient is aware that these will be televisits, and that new provider will not be an employee of [facility]. Gives verbal consent to share protected [...] night. 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/15/2024 Dysplasia of cervix 12/14/2011 02/15/20 24 Immunizations Immunization Administration Dates Next Due Flu, Multi Dose 0.5 ML 04/12/2019,2017,04/17/2017,06/06,04/07/2015 Hep B, Adult/Adol (ZFCUVEH-Y-QUKEZ/RECOMBIVAX-ADULT) 05/06/2005,10/01/2001,10/26/1999,10/10 INFLUENZA, SEASONAL, INJECTABLE 04/08/2014 PNEUMOCOCCAL CONJUGATE PCV 2 0 (Prevnar 20) 04/20/2023 PNEUMOCOCCAL POLYSACCHARIDE PPV23 (Pneumovax 23) 02/21/2013 [facility] State Funded Flu Vaccine 04/15/2013, 012 TDAP 06/04/2012 Td (adult), 5 Lf tetanus tox oid (Tenivac), preservative free 06/12/2015 Td (adult),2 Lf tetanus toxo id (TDVAX), preservative free 10/26/1999 Family History Medical History Relation Name Comments Schizophrenia Mother Relation Name Status Comments Brother Alive 2 boys Father Mother Alive Sister Alive 3 sister Son Alive 3 sons Social History Tobacco Use Types Packs/Day Years Used Date Smoking Tobacco: Every Day Cigarettes 0.5 26.7 Started: 1998 Smokeless Tobacco: Never Tobacco Cessation:Ready [...] HPV 1975 Tobacco Cessation Counseling (#1) 1975 Tobacco Screening 1975 Relationship Safety Screening/Counseling 1992 Hypertension Screening (#1) 1995 Cervical Cancer Screening 1998 Pap Smear 1998 Breast Cancer Screening (Mammogram) 2017 CT Colonography 2022 Colonoscopy 2022 Colorectal Cancer Screening 2022 FIT/gFOBT 2022 Fecal DNA 2022 Flexible Sigmoidoscopy 2022 Alcohol and Drug Screen 07/10/2024 Zov-[id number]-08 ( season) 2025 Imm-Influenza (#1) 2025 04/12/2019, 1 , 04/17/2017, Additional history exists Imm-DTaP/Tdap/Td (3 - Td or Tdap) 06/12/2025 06/12/2015, 06/04/2012, 10/26/1999 Diabetes Screening 04/12/2027 04/12/2024, 1 , 03/30/2020 Lipid Screening 04/20/2028 04/20/2023 Imm-Hepatitis B Completed 05/06/2005, 09/08, 10/26/1999, Additional history exists HIV Screening Completed 03/17/2023, 03/30/2020 Hepatitis C Screening Completed 03/17/2023 Imm-Pneumococcal Completed 04/20/2023, 02/21/2013 Cervical Ablation/Cold-Knife Conization Discontinued Cervical Cryotherapy Discontinued Colposcopy Discontinued Endometrial Biopsy Discontinued Excision/Leep Discontinued HPV Genotyping Discontinued Vaginal Pap Discontinued Vulvoscopy Discontinued Insurance [place] MEDICA[place] [facility]
== END ==
LOC: HO.CARD 13:25
PROVIDERS: PCP Nurse Practitioner Primary Care; Visit Provider Internal Medicine
DX: R00.0 Tachycardia, unspecified (principal)
CPT/HCPCS: 93306

== ENCOUNTER → 2025-04-03 13:30 | Outpatient (BNV) | payer MEDICAID, SELFPAY | PROVIDERS: PCP Nurse Practitioner Primary Care; Visit Provider Internal Medicine Cardiovascular Disease | DX: I51.89 Other ill-defined heart diseases (principal) | CPT/HCPCS: 93306 ==

== ENCOUNTER → 2025-04-10 09:46 | Outpatient (REF) | payer MEDICAID, SELFPAY ==
--- NOTE | 2025-04-10 09:51 | CA_ITS ---
Acquisition Time: 2025-04-10 10:14:24 Total Exercise Time: 00:05:00 Test Indications: TACHYCARDIA Medications: SEE H&P Protocol: MUKUL Max HR: 150 BPM 86% of Pred: 173 BPM Max BP: 104/70 mmHG Max Work Load: 7.0 METS Exercise stress test with exercise 5 min of Mukul protocol, achieving 86% MPHR, with request to stop due to shortness of breath and need to use pump , without arrythmia, with blunted BP response to exercise, baseline BP 100/58, max BP 104/58 per electrophysiology tech, without EKG changes meeting criteria for ischemia. In recovery her breathing normalized. Test reviewed with Dr Rivera. She brought and used her own albuteral inhaler ( pump). Referred By: Osmel Torres Electronically Signed By: JON HEARD
--- NOTE | 2025-04-10 09:51 | HM_ITS ---
Conclusion: 1. Patient was monitored for total period of 5 days and 13 hours 2. Baseline was normal sinus rhythm with average heart rate of 102 beats per minute 3. No significant arrhythmias or pauses noted 4. Frequent sinus tachycardia noted with 49% of the time heart rate about 100 beats per minute 5. No patient reported events MTDD
--- OUTSIDE RECORDS SUMMARY | 2025-04-10 10:57 | XMS_ITS | Encounter Summary ---
Author Organization [employer] Address [address] [facility] 7 [place] [address] Care Team Providers Care Head Bander And Liner Operator Name Role Phone Sofiya Corona Primary Care Provider [phone] José Miguel Mueller Unavailable Unavailable Reason for Visit * Reason Comments Med Refill Encounter Details Date Type Department Care Team ([facility] st Contact Info) Description 06/24/2024 Refill [facility] [address] [place] [address] Sofiya Corona ANP [address] [place] [address] Gastroesophageal reflux disease, unspecified whether esophagitis present [...] Care Team (Late st Contact Info) Description 06/17/2025 10:15 AM EST Office Visit [facility] [address] [place] [phone] Sofiya Corona ANP [address] [place] [address] documented as of this encounter Visit Diagnoses Diagnosis Gastroesophageal reflux disease, unspecified whether esophagitis present documented in this encounter Additional Health Concerns Assessment Noted Time PHQ-9 Depression Total Score: 19 024 9:24 AM EDT documented as of this encounter Care Teams Head Bander And Liner Operator Relationship Specialty Start Date End Date Sofiya Corona ANP [address] [place] [address] PCP - General Family Medicine 11/26/19 José Miguel Mueller FNP [address] [place] [phone] Nurse Practitioner Family Medicine 05/29/23 documented as of this encounter
--- OUTSIDE RECORDS SUMMARY | 2025-04-10 10:57 | XMS_ITS | Encounter Summary ---
Author Organization [employer] Address [address] [facility] 7t [place] [address] Care Team Providers Care Safety Person Name Role Phone Sofiya Corona Primary Care Provider [phone] José Miguel Mueller Unavailable Unavailable Reason for Visit * Reason Comments Med Refill Encounter Details Date Type Department Care Team ([facility] st Contact Info) Description 10/05/2024 Refill [facility] [address] [place] [address] Sofiya Corona ANP [address] [place] [address] Moderate persistent asthma without complication Social History [...] Description 06/17/2025 10:15 AM EST Office Visit [facility] [address] [place] [address] Sofiya Corona ANP [address] [place] [address] documented as of this encounter Visit Diagnoses Diagnosis Moderate persistent asthma without complication documented in this encounter Additional Health Concerns Assessment Noted Time PHQ-9 Depression Total Score: 26 025 11:05 AM EDT documented as of this encounter Care Teams Safety Person Relationship Specialty Start Date End Date Sofiya Corona ANP [address] [place] [address] PCP - General Family Medicine 11/26/19 José Miguel Mueller FNP [address] [place] [phone] Nurse Practitioner Family Medicine 05/29/23 documented as of this encounter
--- OUTSIDE RECORDS SUMMARY | 2025-04-10 10:57 | XMS_ITS | Encounter Summary ---
Author Organization [employer] Address [address] [facility] 7t [place] [address] Care Team Providers Care Superintendent [employer] Systems Name Role Phone Sofiya Corona Primary Care Provider [phone] José Miguel Mueller Unavailable Unavailable Encounter Details Date Type Department Care Team ([facility] Contact Info) Description 01/18/2024 Telephone [facility] [address] [place] [address] Sofiya Corona ANP [address] [place] [address] Social History Tobacco Use Types Packs/Day Years [...] Description 06/17/2025 10:15 AM EST Office Visit [facility] [address] [place] [address] Sofiya Corona ANP [address] [place] [address] documented as of this encounter Visit Diagnoses Not on filedocumented in this encounter Additional Health Concerns Assessment Noted Time PHQ-9 Depression Total Score: 14 024 11:01 AM EDT documented as of this encounter Care Teams Superintendent Water And Sewer Systems Relationship Specialty Start Date End Date Sofiya Corona ANP [address] [place] [phone] PCP - General Family Medicine 11/26/19 José Miguel Mueller FNP [address] [place] [phone] Nurse Practitioner Family Medicine 05/29/23 documented as of this encounter
--- OUTSIDE RECORDS SUMMARY | 2025-04-10 10:57 | XMS_ITS | Encounter Summary ---
Author Organization [employer] Address [address] [facility] 7t [place] [address] Care Team Providers Care Optic Fibre Drawer Name Role Phone Sofiya Corona Primary Care Provider [phone] José Miguel Mueller Unavailable Unavailable Reason for Visit * Reason Comments Med Refill Encounter Details Date Type Department Care Team ([facility] st Contact Info) Description 04/07/2025 Refill [facility] [address] [place] [address] Sofiya Corona ANP [address] [place] [address] Allergic rhinitis, unspecified seasonality, unspecified trigger Social History Tobacco Use Types Packs/Day Years Used Date Smoking Tobacco: Every Day Cigarettes Passive Smoke Exposure: Current Smokeless Tobacco: Never Depression Answer Date Recorded Patient Health Questionnaire-9 Score 22 03/18/2025 Patient Health Questionnaire-9 Score 22 03/18/2025 Last PHQ-9: Questionnaire Data Not on file 0 03/18/2025 Housing Stability Answer Date Recorded What is [...] Date Recorded Patient Health Questionnaire-2 Score 6 03/18/2025 Internet Access Answer Date Recorded Internet Access [...] Description 06/17/2025 10:15 AM EST Office Visit [facility] [address] [place] [phone] Sofiya Corona ANP [address] [place] [address] documented as of this encounter Visit Diagnoses Diagnosis Allergic rhinitis, unspecified seasonality, unspecified trigger documented in this encounter Additional Health Concerns Assessment Noted Time PHQ-9 Depression Total Score: 22 025 11:31 AM EDT documented as of this encounter Care Teams Optic Fibre Drawer Relationship Specialty Start Date End Date Sofiya Corona ANP [address] [place] [address] PCP - General Family Medicine 11/26/19 José Miguel Mueller FNP [address] [place] [phone] Nurse Practitioner Family Medicine 05/29/23 documented as of this encounter
--- OUTSIDE RECORDS SUMMARY | 2025-04-10 10:57 | XMS_ITS | Encounter Summary ---
Author Organization [employer] Address [address] [place] [address] 7t [place] [address] Care Team Providers Care Store Stocker Name Role Phone Sofiya Corona Primary Care Provider [phone] José Miguel Mueller Unavailable Unavailable Encounter Details Date Type Department Care Team (Late st Contact Info) Description 09/01/2022 Orders Only [facility] [address] [place] [address] Trina West LPN Social History Tobacco Use [...] Description 06/17/2025 10:15 AM EST Office Visit [facility] [address] [place] [address] Sofiya Corona ANP [address] [place], [place] [phone] documented as of this encounter Procedures Procedure Name Priority Date/Time Associated Diagnosis Comments HIV ANTIBODY/ANTIGEN (KS DP) Routine 03/17/2023 2:09 PM EDT HEPATITIS B SURFACE ANTIGEN, EIA Routine 03/17/2023 2:09 PM EDT documented in this encounter Results * Hepatitis B surface antigen, EIA (03/17/2023 2:09 PM EDT) Hepatitis B Surface Ag Negative Negative [facility] 03/17/2023 2:09 PM EDT 03/17/2023 4:01 PM EDT Mandy Saini MD LAB BLOOD ORDERAB LES Final Result Performing Organization Address [facility]/ZIP Co de Phone Number [facility] [address] [place] [address] [phone] * HIV Ab/Ag ([facility]) (03/17/2023 2:09 PM EDT) Pathologist [facility] HIV AB/AG Nonreactive Nonreactive [facility] Comment:HIV-1 p24 Ag and/or HIV-1/HIV-2 Ab not detected.A test result that is nonreactive does not exclude thepossibility of exposure to or infection with HIV-1 and/orHIV-2. Nonreactive results in this assay for individualswith prior exposure to HIV-1 and/or HIV-2 may be due toantigen and antibody levels that are below the limit ofdetection of this assay.The [employer] HIV Ag/Ab Combo assay result andsupplemental assay results should be interpreted inconjunction with the patient's clinical presentation,history and other laboratory results. If the results areinconsistent with clinical evidence, additional testing issuggested to confirm the result. 03/17/2023 2:09 PM EDT 03/17/2023 4:01 PM EDT us Mandy Saini MD LAB BLOOD ORDERAB LES Final Result Performing Organization Address [facility]/ZIP Co de Phone Number [facility] [address] [place] [address] [phone] documented in this encounter Visit Diagnoses Not on filedocumented in this encounter Additional Health Concerns Assessment Noted Time PHQ-9 Depression Total Score: 15 023 10:44 AM EST documented as of this encounter Care Teams Store Stocker Relationship Specialty Start Date End Date Sofiya Corona ANP [address] [place] [address] PCP - General Family Medicine 11/26/19 José Miguel Mueller FNP [address] [place] [address] Nurse Practitioner Family Medicine 05/29/23 documented as of this encounter
--- OUTSIDE RECORDS SUMMARY | 2025-04-10 10:57 | XMS_ITS | Encounter Summary ---
Author Organization [employer] Address [address] [facility] 7 [place] [address] Care Team Providers Care Statistical Engineer Name Role Phone Sofiya Corona Primary Care Provider [phone] José Miguel Mueller Unavailable Unavailable Reason for Visit * Reason Onset Date Comments Med Refill 12/03/2024 Encounter Details Date Type Department Care Team ([facility] st Contact Info) Description 12/03/2024 Telephone [facility] [address] [place] [address] Sofiya Corona ANP [address] [place] [address] Med Refill Social History Tobacco Use Types [...] encounter Miscellaneous Notes * Telephone Encounter - Marilynn Aparicio - 12/03/2024 9:47 AM EDT TC from pt requesting medication refill. Medications needing refill : Tirzepatide-Weight Management (Zepbound) 2.5 MG/0.5ML solution auto-injector To be sent to: [facility] - [place], [place] - [address] [place] [address] documented in this encounter Plan of Treatment Upcoming Encounters Date Type Department Care Team ([facility] st Contact Info) Description 06/17/2025 10:15 AM EST Office Visit [facility] [address] [place] [address] Sofiya Corona ANP [address] [place] [address] documented as of this encounter Visit Diagnoses Not on filedocumented in this encounter Additional Health Concerns Assessment Noted Time PHQ-9 Depression Total Score: 26 025 11:05 AM EDT documented as of this encounter Care Teams Statistical Engineer Relationship Specialty Start Date End Date Sofiya Corona ANP [address] [place] [address] PCP - General Family Medicine 11/26/19 José Miguel Mueller FNP [address] [place] [address] Nurse Practitioner Family Medicine 05/29/23 documented as of this encounter
--- OUTSIDE RECORDS SUMMARY | 2025-04-10 10:57 | XMS_ITS | Encounter Summary ---
Author Organization [employer] Address [address] [facility] 7t [place] [address] Care Team Providers Care City Planning Engineer Name Role Phone Sofiya Corona Primary Care Provider [phone] José Miguel Mueller Unavailable Unavailable Reason for Visit * Reason Onset Date Comments Med Refill 04/17/2024 Encounter Details Date Type Department Care Team ([facility] st Contact Info) Description 04/17/2024 Telephone [facility] [address] [place] [address] Sofiya Corona ANP [address] [place] [address] Med Refill Social History Tobacco Use Types [...] 1 MG tablet To be sent to: [facility] - [place], [place] - [address] [place] [address] documented in this encounter Plan of Treatment Upcoming Encounters Date Type Department Care Team (Late st Contact Info) Description 06/17/2025 10:15 AM EST Office Visit [facility] [address] [place] [address] Sofiya Corona ANP [address] [place] [address] documented as of this encounter Visit Diagnoses Not on filedocumented in this encounter Additional Health Concerns Assessment Noted Time PHQ-9 Depression Total Score: 19 024 9:24 AM EDT documented as of this encounter Care Teams City Planning Engineer Relationship Specialty Start Date End Date Sofiya Corona ANP [address] [place] [id number] PCP - General Family Medicine 11/26/19 José Miguel Mueller FNP [address] [place] [address] Nurse Practitioner Family Medicine 05/29/23 documented as of this encounter
--- OUTSIDE RECORDS SUMMARY | 2025-04-10 10:57 | XMS_ITS | Encounter Summary ---
Author Organization [employer] Address [address] [facility] 7t [place] [address] Care Team Providers Care Pipe Fitter Supervisor Name Role Phone Sofiya Corona Primary Care Provider [phone] José Miguel Mueller Unavailable Unavailable Reason for Visit * Reason Onset Date Comments Med Refill 01/18/2024 Encounter Details Date Type Department Care Team ([facility] st Contact Info) Description 01/18/2024 Telephone [facility] [address] [place] [address] Sofiya Corona ANP [address] [place] [address] Med Refill Social History Tobacco Use Types [...] 1 MG tablet To be sent to: [facility] - [place], [place] - [address] [place] [address] documented in this encounter Plan of Treatment Upcoming Encounters Date Type Department Care Team ([facility] st Contact Info) Description 06/17/2025 10:15 AM EST Office Visit [facility] [address] [place] [address] Sofiya Corona ANP [address] [place] [address] documented as of this encounter Visit Diagnoses Not on filedocumented in this encounter Additional Health Concerns Assessment Noted Time PHQ-9 Depression Total Score: 14 024 11:01 AM EDT documented as of this encounter Care Teams Pipe Fitter Supervisor Relationship Specialty Start Date End Date Sofiya Corona ANP [address] [place] [phone] PCP - General Family Medicine 11/26/19 José Miguel Mueller FNP [address] [place] [phone] Nurse Practitioner Family Medicine 05/29/23 documented as of this encounter
--- OUTSIDE RECORDS SUMMARY | 2025-04-10 10:57 | XMS_ITS | Encounter Summary ---
Author Organization [employer] Address [address] [place] [address] 7 [place] [address] Care Team Providers Care Core Shaper Sides Name Role Phone Sofiya Corona Primary Care Provider [phone] José Miguel Mueller Unavailable Unavailable Reason for Visit * Reason Comments Med Refill Encounter Details Date Type Department Care Team (Late Contact Info) Description 11/10/2022 Refill [facility] [address] [place] [phone] Cooper Horton FNP Nasal congestion Social History [...] Department Care Team (Late Contact Info) Description 06/17/2025 10:15 AM EST Office Visit [facility] [address] [place] [address] Sofiya Corona ANP [address] [place] [address] documented as of this encounter Visit Diagnoses Diagnosis Nasal congestion Other diseases of nasal cavity and sinuses documented in this encounter Additional Health Concerns Assessment Noted Time PHQ-9 Depression Total Score: 15 10/11/ 023 1:06 PM EDT documented as of this encounter Care Teams Core Shaper Sides Relationship Specialty Start Date End Date Sofiya Corona ANP [address] [place] [address] PCP - General Family Medicine 11/26/19 José Miguel Mueller FNP [address] [place] [address] Nurse Practitioner Family Medicine 05/29/23 documented as of this encounter
--- OUTSIDE RECORDS SUMMARY | 2025-04-10 10:57 | XMS_ITS | Clinical Summary ---
Author Organization [facility] Address [address] [place] [address] Care Team Providers Care Hall Director Name Role Phone Unavailable Primary Care Provider [...] tabletIndication s:Bipolar affective disorder, currently depressed, moderate Take 1 Tablet by mouth 2 (two) times daily 60 Tablet 2 07/25/2024 Active lamoTRIgine (LAMICTAL) 200 mg tabletIndication s:Bipolar affective disorder, currently depressed, moderate Take 1 Tablet by mouth 2 (two) times daily 60 Tablet 2 07/25/2024 Active QUEtiapine (SEROQUEL) 400 mg tabletIndication s:Bipolar affective disorder, currently depressed, moderate Take 1 Tablet by mouth 2 (two) [...] mg PO BID refilled sent to 2 Assessment & Plan (04/04/2024 12:55 PM EDT): [...] be done by pt. Bipolar disorder 07/26/2022 Overview (02/15/2024): Last Assessment & Plan: [...] retiring, she will be referred to new [facility] psychiatric prescriber. Patient is aware that these will be televisits, and that new provider will not be an employee of [facility]. Gives verbal consent to share protected [...] night. 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 02/15/2024 Dysplasia of cervix 12/14/2011 02/15/20 24 Immunizations Immunization Administration Dates Next Due Flu, Multi Dose 0.5 ML 04/12/2019,2017,04/17/2017,06/06,04/07/2015 Hep B, Adult/Adol ([id number]/RECOMBIVAX-ADULT) 05/06/2005,10/01/2001,10/26/1999,10/10 INFLUENZA, SEASONAL, INJECTABLE 04/08/2014 PNEUMOCOCCAL CONJUGATE PCV 2 0 (Prevnar 20) 04/20/2023 PNEUMOCOCCAL POLYSACCHARIDE PPV23 (Pneumovax 23) 02/21/2013 [facility] State Funded Flu Vaccine 04/15/2013, 012 [...] Date Smoking Tobacco: Every Day Cigarettes 0.5 26.8 Started: 1998 Smokeless Tobacco: Never Tobacco Cessation:Ready [...] 0 02/13/2024 Safety and Environment Answer Date Khio rded Safety 0 02/13/2024 Utilities Answer Date [...] Sigmoidoscopy 2022 Alcohol and Drug Screen 07/10/2024 [id number] () 03/10/2025 Imm-Influenza (#1) 2025 04/12/2019, 1 , 04/17/2017, [...] Discontinued Vaginal Pap Discontinued Vulvoscopy Discontinued Insurance [place] MEDICAID [facility]
--- OUTSIDE RECORDS SUMMARY | 2025-04-10 10:57 | XMS_ITS | Encounter Summary ---
Author Organization [employer] Address [address] [facility] 7 [place] [address] Care Team Providers Care Hourly Manager Name Role Phone Sofiya Corona Primary Care Provider [phone] José Miguel Mueller Unavailable Unavailable Reason for Visit * Reason Onset Date Comments Med Refill 12/03/2024 Encounter Details Date Type Department Care Team ([facility] st Contact Info) Description 12/03/2024 Telephone [facility] [address] [place] [address] Sofiya Corona ANP [address] [place] [address] Med Refill Social History Tobacco Use Types [...] Telephone Encounter - Marilynn Aparicio - 12/03/2024 9:56 AM EDT TC from pt requesting medication refill. Medications needing refill : clonazePAM (KlonoPIN) 1 MG tablet To be sent to: [facility] documented in this encounter Plan of Treatment Upcoming Encounters Date Type Department Care Team (Late st Contact Info) Description 06/17/2025 10:15 AM EST Office Visit [facility] [address] [place] [phone] Sofiya Corona ANP [address] [place] [address] documented as of this encounter Visit Diagnoses Not on filedocumented in this encounter Additional Health Concerns Assessment Noted Time PHQ-9 Depression Total Score: 26 025 11:05 AM EDT documented as of this encounter Care Teams Hourly Manager Relationship Specialty Start Date End Date Sofiya Corona ANP [address] [place] [phone] PCP - General Family Medicine 11/26/19 José Miguel Mueller FNP [address] [place] [address] Nurse Practitioner Family Medicine 05/29/23 documented as of this encounter
--- OUTSIDE RECORDS SUMMARY | 2025-04-10 10:58 | XMS_ITS | Clinical Summary ---
Author Organization [employer] Address [address] [place] [address] [address] [place] [address] Care Team Providers Care Radiographer Cardiac Catheterization Name Role Phone Sofiya Corona DAVID Primary Care Provider [phone] José Miguel Mueller Unavailable Unavailable Allergies Active Allergy Reactions Criticality Noted Date Comments Benzoyl Peroxide 11/20/2012 Other reaction(s): local irritation Codeine High 02/16/2012 Other reaction(s): upset stomach Tretinoin 11/20/2012 Other reaction(s): local irritation Medications * This document contains information received from the source organization and may not represent a complete record from that organization. sodium chloride ([place] [facility] [place]) 0.65 % nasal sprayIndication s:Nasal congestion 1-2 sprays on each nostril every 2-3 hours as needed for nasal congestion 30 mL 02/14/20 23 Active lamoTRIgine (LaMICtal) 200 MG tabletIndicatio ns:Bipolar affective disorder, remission status unspecified (CMS/HCC) ([facility]) Take 1 tablet (200 mg) by mouth 2 times daily. 180 tablet 3 01/22/20 24 Active Symbicort 160-4.5 MCG/ACT inhalerIndicati ons:Moderate persistent asthma without complication INHALE 2 PUFFS TWICE DAILY IN THE MORNING AND AT BEDTIME, RINSE MOUTH AFTER USING. 10.2 g 11 05/20/20 24 Active ProAir RespiClick 108 (90 Base) MCG/ACT aerosol powder Take 2 puffs by mouth every 4 (four) hours if needed (wheezing or shortness of breath). 10/03/19 25 Active cyclobenzaprine (Flexeril) 5 MG tabletIndicatio ns:Rib pain 1-2 tabs as needed up to TID 15 tablet 10/16/19 25 Active Alcohol Swabs (Alcohol Pads) 70 % pads Use weekly prior to injecting zepbound 100 each 11 11/12/19 25 Active cetirizine (ZyrTEC) 10 MG tabletIndicatio ns:Allergic rhinitis, unspecified seasonality, unspecified trigger TAKE 1 TABLET BY MOUTH EVERY DAY 90 tablet 1 12/04/19 25 Active Tirzepatide-Alessio ght Management (Zepbound) 7.5 MG/0.5ML solution auto-injectorIn dications:Class 2 severe obesity with serious comorbidity and body mass index (BMI) of 36.0 to 36.9 in adult, unspecified obesity type Inject 0.5 mL (7.5 mg) under the skin 1 (one) time per week. Do not start before January 01, 2025. 2 mL 2 01/02/20 25 Active omeprazole (PriLOSEC) [address] capsuleIndicati ons:Gastroesoph ageal reflux disease, unspecified whether esophagitis present Take 1 capsule (20 mg) by mouth before breakfast and before evening meal. Do not crush or chew. 56 capsule 2 03/18/20 25 Active QUEtiapine (SEROquel) 400 MG tabletIndicatio ns:Bipolar affective disorder, remission status unspecified (CMS/HCC) ([facility]) TAKE 1 TABLET BY MOUTH TWICE DAILY 60 tablet 03/20/20 25 Active benztropine (Cogentin) 0.5 MG tablet TAKE 1 TABLET BY MOUTH TWICE DAILY 60 tablet 03/20/20 25 Active clonazePAM (KlonoPIN) 1 MG tabletIndicatio ns:Bipolar affective disorder, remission status unspecified (CMS/HCC) ([facility]) TAKE 1 TABLET BY MOUTH TWICE DAILY FOR 28 DAYS 56 tablet 03/20/20 25 Active montelukast (Singulair) 10 MG tabletIndicatio ns:Allergic rhinitis, unspecified seasonality, unspecified trigger TAKE 1 TABLET BY MOUTH EVERY DAY 90 tablet 1 04/08/20 25 Active montelukast (Singulair) 10 MG tabletIndicatio ns:Allergic rhinitis, unspecified seasonality, unspecified trigger TAKE 1 TABLET BY MOUTH EVERY DAY 90 tablet 1 09/24/19 25 025 Discontinued omeprazole (PriLOSEC) [address] capsuleIndicati ons:Gastroesoph ageal reflux disease, unspecified whether esophagitis present Take 1 capsule (20 mg) by mouth before breakfast and before evening meal. Do not crush or chew. 56 capsule 2 12/20/19 25 025 Discontinued(R eorder (will not trigger notification to Pharmacy)) omeprazole OTC (PriLOSEC OTC) 20 MG EC tablet Take 1 tablet (20 mg) by mouth before breakfast. Do not crush, chew, or split. 30 tablet 11 01/03/20 025 Discontinued(D uplicate order (will not trigger notification to Pharmacy)) clonazePAM (KlonoPIN) 1 MG tabletIndicatio ns:Bipolar affective disorder, remission status unspecified (CMS/HCC) ([facility]) TAKE 1 TABLET BY MOUTH TWICE DAILY FOR 28 DAYS 56 tablet 02/19/20 25 025 Discontinued benztropine (Cogentin) 0.5 MG tablet TAKE 1 TABLET BY MOUTH TWICE DAILY 60 tablet 02/20/20 25 025 Discontinued QUEtiapine (SEROquel) 400 MG tabletIndicatio ns:Bipolar affective disorder, remission status unspecified (CMS/HCC) ([facility]) TAKE 1 TABLET BY MOUTH TWICE DAILY 60 tablet 02/20/20 25 025 Discontinued Active Problems Problem Noted Date Diagnosed Date Other social stressor 04/02/2025 Tachycardia 10/01/2024 Assessment & Plan (10/01/2024 11:10 [...] pt. Bipolar disorder 07/26/2022 Assessment & Plan (04/03/2025 1:40 PM EDT): During IBH Consult Rochelle presenting with Abnormally elevated mood, Decreased need for sleep, Flight of ideas, and Excessive goal directed activity; for a period of 18+ mo, for most or all symptoms in the context of chronic mental health with no psychiatrist services in place. Pt reports she has been struggling with her mental health and on off since her early years. She is aware of triggers and avoid confrontations. Pt with history of high irritability and outburst. Her mother is main support and strength. Assessment & Plan (01/22/2024 10:08 AM EDT): [...] retiring, she will be referred to new [facility] psychiatric prescriber. Patient is aware that these will be televisits, and that new provider will not be an employee of [facility]. Gives verbal consent to share protected health [...] her care will be transferred to new [facility] psychiatric prescriber. Patient is aware that these will be televisits, and that new provider will not be an employee of [facility]. Gives verbal consent to share protected health [...] 12/14/2011 04/18/2023 Dysplasia of cervix 12/14/2011 04/18/2023 Resolved Problems Problem Noted Date Diagnosed Date Resolved Date Respiratory distress 10/01/2024 025 Assessment & Plan (10/01/2024 11:10 AM EDT): Pt presented with acute shortness of breath, palpitations and dizziness. She is in moderate respiratory distress, O2 SAT's maintaining. Hr upon arrival was 147 and has increased to 180. EKG without significant abnormalities, sinus tach. BP soft. Pt anxious appearing. Called ambulance to get pt transported to the ED for acute care. Encounters * This document contains information received from the source organization and may not represent a complete record from that organization. Date Type Department Care Team Description 04/07/2025 Refill [facility] [address] [place] [address] Sofiya Corona, DAVID Allergic rhinitis, unspecified seasonality, unspecified trigger 03/31/2025 Telephone [facility] [address] [place] [phone] Sofiya Corona ANP dec recall 03/20/2025 Refill [facility] [address] [place] [address] Sofiya Corona ANP Bipolar affective disorder, remission status unspecified (CMS/HCC) 03/18/2025 11:00 AM EDT Office Visit [facility] [address] [place] [phone] Sofiya Corona ANP Bipolar affective disorder, remission status unspecified (CMS/HCC) (Primary Dx); Gastroesophageal reflux disease, unspecified whether esophagitis present; Tobacco dependence; Tachycardia; Tremor of both hands; Low blood pressure reading; Class 1 obesity with body mass index (BMI) of 33.0 to 33.9 in adult, unspecified obesity type, unspecified whether serious comorbidity present 03/18/2025 Travel 03/17/2025 Telephone [facility] [address] [place] [phone] Sofiya Corona ANP chart prep 03/07/2025 2:00 PM EDT Office Visit [facility] [address] [place] [phone] Michael Guido MD History of shingles (Primary Dx) 03/07/2025 Travel 02/18/2025 Refill [facility] [address] [place] [address] Julianna Mcfadden MD Bipolar affective disorder, remission status unspecified (CMS/HCC) 02/18/2025 Refill [facility] [address] [place] [phone] Sofiya Corona ANP Bipolar affective disorder, remission status unspecified (CMS/HCC) 02/03/2025 Telephone [facility] [address] [place] [phone] Sofiya Corona ANP Medication Question 01/20/2025 Telephone [facility] [address] [place] [phone] Sofiya Corona ANP Medication Question 01/16/2025 Refill [facility] [address] [place] [phone] Sofiya Corona ANP Bipolar affective disorder, remission status unspecified (CMS/HCC) 01/14/2025 Telephone [facility] [address] [place] [address] Sofiya Corona ANP 01/14/2025 Refill [facility] [address] [place] [address] Sofiya Corona ANP Bipolar affective disorder, remission status unspecified ([facility]/HCC) 01/14/2025 Telephone [facility] [address] [place], [place] [phone] Sofiya Corona ANP Call back from Last 3 Months Immunizations Immunization Administration Dates Next Due Hep B, adult [...] Sign Reading Time Taken Comments Blood Pressure 98/64 03/18/2025 11:02 AM EDT Pulse 118 03/18/2025 11:02 AM EDT Temperature 36.1 C (97 F) 03/18/2025 11:02 AM EDT Respiratory Rate 20 03/18/2025 11:02 AM EDT Oxygen Saturation 99% 03/18/2025 11:02 AM EDT Inhaled Oxygen Concentration - - Weight 90.8 kg (200 lb 2 oz) 03/18/2025 11:02 AM EDT Height 165.1 cm (5' 5 ) 03/18/2025 11:02 AM EDT Body Mass Index 33.3 03/18/2025 11:02 AM EDT Plan of Treatment Upcoming Encounters Date Type Department Care Team (Late st Contact Info) Description 06/17/2025 10:15 AM EST Office Visit [facility] [address] [place] [address] Sofiya Corona ANP [address] [place] [address] Health Maintenance Due Date Last Done Comments CT Colonography 1977 Colonoscopy 1977 Colorectal Cancer Screening 1977 FIT DNA/Cologuard 1977 FIT 1977 FOBT 1977 Sigmoidoscopy 1977 Family Planning (PISQ) 1992 Mammogram 2017 COVID-19 Vaccine ( season) 2025 Influenza Vaccine (#1) 2025 9, 05/08/2018, 04/17/2017, Additional history exists DTaP/Tdap/Td Vaccines (3 - Td or Tdap) 06/12/2025 06/12/2015, 06/04/2012, 10/26/1999 SDOH Screening 09/06/2025 09/06/2024 Depression Monitoring 09/15/2025 03/18/2025, 025 Alcohol/Substance Use Screening 09/17/2025 09/17/2024 Disability Screening 10/15/2025 10/15/2024 Cervical Cancer Screening 12/16/2025 HPV/Cotest 12/16/2025 12/16/2020, 08/0 02/2018, 03/08/2017 Pap Smear 12/16/2025 12/16/2020 Tobacco Screening 03/18/2026 03/18/2025 Zoster Vaccines (1 of 2) 2027 Lipid Panel 04/20/2028 04/20/2023, 03/30/2020 RSV Patients and Patients Aged 60 years or older (1 - 1-dose 75+ series) 2052 Hepatitis B Vaccines Completed 05/06/2005, 10/01/2001, 10/26/1999, Additional history exists HIV Screening Completed 03/17/2023, 03/30/2020 Hepatitis C Screening Completed 03/17/2023 Pneumococcal Vaccine: Pediatrics (0 to 5 Years) and At-Risk Patients (6 to 49) Years Completed 04/20/2023, 02/21/2013 HIB Vaccines Aged Out [...] patient's age to complete this topic Meningococcal B Vaccine Aged Out No l onger eligible based on patient's age to complete [...] Procedure Name Priority Date/Time Associated Diagnosis Comments LIPID PANEL, STANDARD Routine 04/20/2023 10:13 AM [...] Recently Relevant to Health Maintenance Results * (ABNORMAL) Lipid Panel, Standard (04/20/2023 10:13 AM EDT) Triglycerides 81 <150 mg/dL [facility] Comment:Desirable Triglyceri de: less than 150 mg/dLBorderline High Triglyceride 150-199 mg/dLHigh Triglyceride: 200-499 mg/dLVery High Triglyceride: greater than or equal to 5OO mg/dL Cholesterol 163 <200 mg/dL [facility] Comment:Desirable Cholestero l: less than 200 mg/dLBorderline High Cholesterol: 200-239 mg/dLHigh Cholesterol: greater than 239 mg/dL LDL Cholesterol Calculated 105(H) <100 mg/dL [facility] Comment:Desirable LDL: less than 100 mg/dLNear Optimal/Above Optimal LDL: 110- 129 mg/dLBorderline High LDL: 130-159 mg/dLHigh LDL: 160-189 mg/dLVery High LDL: greater than or equal to 190 mg/dL HDL Cholesterol 42 >40 mg/dL [facility] Comment:Desirable HDL: great er than 40 mg/dL Note: This HDL assay may give artificially low results in patients with liver disease. Blood Venous blood specimen / Unknown 04/20/2023 10:13 AM EDT 04/20/2023 11:19 AM EDT us Sofiya HERNANDEZ LAB BLOOD ORDERABLES Final Resul t Performing Organization Address City/[facility]/ZIP Co de Phone Number [facility] [address] [place] [address] [phone] * HIV Ab/Ag ([facility]) (03/17/2023 2:09 PM EDT) [facility] HIV AB/AG Nonreactive Nonreactive [facility] Comment:HIV-1 p24 Ag and/or HIV-1/HIV-2 Ab not detected.A test result that is nonreactive does not exclude thepossibility of exposure to or infection with HIV-1 and/orHIV-2. Nonreactive results in this assay for individualswith prior exposure to HIV-1 and/or HIV-2 may be due toantigen and antibody levels that are below the limit ofdetection of this assay.The [employer] HIV Ag/Ab Combo assay result andsupplemental assay results should be interpreted inconjunction with the patient's clinical presentation,history and other laboratory results. If the results areinconsistent with clinical evidence, additional testing issuggested to confirm the result. 03/17/2023 2:09 PM EDT 03/17/2023 4:01 PM EDT us Mandy Saini MD LAB BLOOD ORDERAB LES Final Result Performing Organization Address City/[facility]/ZIP Co de Phone Number [facility] [address] [place] [phone] * Hepatitis C Antibody with Reflex to HCV, RNA, Quantitative, Real-Time PCR (03/17/2023 2:09 PM EDT) Pathologist [facility] Hepatitis C Antibody Nonreactive Nonreactive [facility] Comment:Antibodies to HCV no t detected; does not exclude early acuteHCV infection. Blood Venous blood specimen / Unknown 03/17/2023 2:09 PM EDT 03/17/2023 4:01 PM EDT us Mandy Saini MD LAB BLOOD ORDERAB LES Final Result Performing Organization Address City/[facility]/ZIP Co de Phone Number [facility] [address] [place] [address] [phone] * THINPREP PAP (12/16/2020 11:33 AM EDT) Clinical Information: None given [facility] COMMENT SEE COMMENT [facility] Comment: EXPLANATORY NOTE: The Pap is a screening test for cervical cancer. It is not a diagnostic test and is subject to false negative and false positive results. It is most reliable when a satisfactory sample, regularly obtained, is submitted with relevant clinical findings and history, and when the Pap result is evaluated along with historic and current clinical information. Medical Services Assistant : SEE COMMENT [facility] Comment: GSG, CT(ASCP) CT screening location: [place] [address] Interpretation/R esult: Negative for intraepithelial lesion or malignancy. [facility] LMP: 12/08/2020 [facility] Prev. BX: NONE [facility] Prev. PAP: NONE [facility]IV[facility] SOURCE: Cervix [facility] Statement Of Adequacy: SEE COMMENT [facility] Comment: Satisfactory for evaluation. Endocervical/transformation zone component absent. 12/16/2020 11:3 3 AM EDT us Mey Haile CNM LAB PATHOLOGY ORDERABLES Final Result Performing Organization Address City/[facility]/ZIP Co de Phone Number [facility] [address] * HPV mRNA E6/E7 (12/16/2020 11:33 AM EDT) HPV nRNA E6/E7 Not Detected Not Detected [facility] Comment: Methodology: Accounting Auditor-Mediated Amplification This assay detects E6/E7 viral messenger RNA (mRNA) from 14 high-risk HPV types (16,18,31,33,35,39,45,51,52,56,58,59,66,68). The analytical performance characteristics of this assay have been determined by [employer]. The modifications have not been cleared or approved by the FDA. This assay has been validated pursuant to the CLIA regulations and is used for clinical purposes. For additional information, please refer to http://education.[employer]/faq/ION210q6 (This link if provided for information/ educational purposes only.) 12/16/2020 11:3 3 AM EDT us Mey Haile [facility] LAB BLOOD ORDERABLES Catherine simon Result [facility] [address] from Last 3 Months or Most Recently Relevant to Health Maintenance [facility] Care Teams Radiographer Cardiac Catheterization Relationship Specialty Start Date End Date Sofiya Corona ANP [address] [place] [address] PCP - General Family Medicine 11/26/19 José Miguel Mueller FNP [address] [place] [address] Nurse Practitioner Family Medicine 05/29/23
--- OUTSIDE RECORDS SUMMARY | 2025-04-10 10:58 | XMS_ITS | Encounter Summary ---
Author Organization [employer] Address [address] [place] [address] [address] [place] [address] Care Team Providers Care Tool And Cutter Grinder Name Role Phone Sofiya Corona Primary Care Provider José Miguel Mueller Unavailable Unavailable Reason for Visit * Reason Onset Date Comments Med Refill 03/15/2023 Encounter Details Date Type Department Care Team (Late st Contact Info) Description 03/15/2023 Telephone [facility] [address] [place] [address] Sofiya Corona ANP [address] [place] [address] Med Refill Social History Tobacco Use Types [...] Description 06/17/2025 10:15 AM EST Office Visit [facility] [address] [place] [address] Sofiya Corona ANP [address] [place] [address] documented as of this encounter Visit Diagnoses Not on filedocumented in this encounter Additional Health Concerns Assessment Noted Time PHQ-9 Depression Total Score: 22 023 11:21 AM EDT documented as of this encounter Care Teams Tool And Cutter Grinder Relationship Specialty Start Date End Date Sofiya Corona ANP [address] [place] [phone] PCP - General Family Medicine 11/26/19 José Miguel Mueller FNP [address] [place] [phone] Nurse Practitioner Family Medicine 05/29/23 documented as of this encounter
== END ==
LOC: HO.CARD 09:46
PROVIDERS: PCP Nurse Practitioner Primary Care; Visit Provider Internal Medicine
DX: R00.0 Tachycardia, unspecified (principal); R07.9 Chest pain, unspecified
CPT/HCPCS: 93017; 93242

== ENCOUNTER → 2025-04-10 09:51 | Outpatient (BNV) | payer MEDICAID, SELFPAY | PROVIDERS: PCP Nurse Practitioner Primary Care; Visit Provider Nurse Practitioner Family | DX: R06.02 Shortness of breath (principal) | CPT/HCPCS: 93016; 93018 ==

== ENCOUNTER 2025-05-12 13:30 | Outpatient (AMB) | payer MEDICAID, SELFPAY ==
[2025-05-12 13:54] VITALS: BP 108/72; PULSE 106; BMI 35.9
--- NOTE | 2025-05-12 13:54 | MHC.OFFVIS ---
Vital Signs 05/12/25 13:54 Height 5 ft 4 in Weight 209 lb 7.026 oz BMI 35.9 BP 108/72 Pulse 106 H Pulse Source Monitor Intake Visit Reasons: fu echo/ett/ holter (HS) Park Activities Coordinator Required: No Allergies codeine (CODEINE) Allergy (Severe, Verified 05/12/25 13:56) VOMITING, FEVER,CHILLS oxycodone Allergy (Severe, Verified 05/12/25 13:56) Nausea and Vomiting percocet Allergy (Severe, Uncoded 05/12/25 13:56) Nausea and Vomiting BENZOYL PEROXIDE Allergy (Unknown, Uncoded 05/12/25 13:56) UNKNOWN TRETINOIN Allergy (Unknown, Uncoded 05/12/25 13:56) UNKNOWN Medication List - Last Reconciled 05/12/25 by DELIA [place] benztropine 0.5 mg PO DAILY budesonide-formoterol 160-4.5 mcg/actuation (Symbicort) 2 puffs inhalation BID cetirizine 10 mg PO DAILY clonazepam 1 mg PO BID PRN cyclobenzaprine 10 mg PO Q8H famotidine 20 mg PO BID PRN ibuprofen 600 mg PO Q8H PRN lamotrigine 200 mg PO BID montelukast 10 mg PO DAILY quetiapine 400 mg PO BID HPI HPI fu echo/ett/ holter (HS): Details: Rochelle is a 49-year-old female with past medical history of asthma, smoking who underwent cardiac evaluation for tachycardia including Holter monitor, stress test and echocardiogram. She now presents for follow-up. Today she reports that at times she can feel her heart beating fast and other times she does not. She has asthma which can make her chest feel tight at times. No other types of chest discomfort at rest or with activity. No significant shortness of breath, PND, orthopnea or edema. No lightheadedness, presyncope, syncope, falls. She lives on the 3rd floor and has shortness of breath with stair climbing if she is carrying something. She drinks 3 large caffeinated beverages per day including espresso. She admits to not drinking much water. She smokes 7 cigarettes per day. Labs done in September did show anemia. She has had no signs of active bleeding. She does light physical activities. ON LICENSE OF [facility] Medical History History of cervical dysplasia Bipolar disorder Hypertension Chronic post-traumatic stress disorder (PTSD) Depression Anxiety Asthma Surgical History History of ankle surgery Hx of tubal ligation Family History Father Liver cancer Paternal Grandmother Lung cancer Maternal Grandmother Cancer Mother FH: hyperthyroidism High blood pressure Social History Alcohol intake: never Patient Tobacco Use Status: Current everyday Tobacco user Substance Use Type: Marijuana and Unknown service: No Review of Systems Const All systems reviewed & are unremarkable except as noted in HPI and below ENT Denies dizziness Card Denies chest pain, Denies chest pain at rest, Denies chest pain with activity, Reports rapid heart rate, Denies pedal edema, Denies edema, Denies leg edema, Denies lightheadedness, Denies palpitations, Denies dyspnea, Denies dyspnea on exertion and Denies orthopnea Resp Denies cough, Denies dyspnea and Denies dyspnea on exertion GI Denies hematochezia and Denies change in stool character Musc Denies abnormal gait, Denies limited range of motion, Denies muscle cramps, Denies muscle weakness, Denies numbness, Denies radiating pain into limb, Denies stiffness and Denies tingling Neuro Denies abnormal gait, Denies dizziness, Denies numbness and Denies tingling Endo Denies palpitations Physical Exam Vital Signs: Last Vital Signs Pulse 106 H 05/12/25 13:54 BP 108/72 05/12/25 13:54 BMI result Body Mass Index 35.9 Const General: cooperative, healthy appearing, comfortable and no acute distress Orientation/consciousness: patient oriented x3 Neck Neck: Yes normal visual inspection Resp Effort & Inspection: normal respiratory effort Auscultation: clear to auscultation bilaterally, no crackles, no rales, no rhonchi and no wheezes Cardio Rate: tachycardic Rhythm: regular rhythm Heart sounds: S1 normal heart sound present, S2 normal heart sound present, no gallops, no murmurs and no rubs Peripheral pulses: Peripheral pulses 2+ throughout GI Inspection: Yes normal to inspection Skin General skin exam: no rashes or lesions noted Neuro General: patient oriented x3 Extrem General: Yes normal to inspection, No no pedal edema and No calf tenderness Psych Appearance: grossly normal Mental Status: mental status grossly normal Speech and movement: Normal speech and movement present Office Procedures EKG Details: Today, read by me, sinus tachycardia, rate 106, QTC 422 milliseconds [id number], Complete Assessment & Plan Assessment & Plan (1) Sinus tachycardia: Code(s): R00.0 - Tachycardia, unspecified Category: Medical Plan: Cardiac evaluation for sinus tachycardia. EKG last visit in September showed sinus tachycardia, rate 127. Labs 10/02/2024 showed hematocrit 28.5, labs 04/12/2024 showed TSH 1.74. Echocardiogram 04/03/2025 showed normal study with grade 1 diastolic dysfunction. Exercise stress test 04/13/2025 with exercise 5 minutes, no EKG changes of ischemia. Holter monitor 04/10/2025 showed sinus rhythm/sinus tach with average heart rate 102 beats per minute, 49% of the time heart rate greater than 100. EKG today showing sinus tachycardia 106. She does admit to drinking excess caffeinated coffee and minimal water. Also with mild anemia back in September and his current daily smoker. Discussed lifestyle modification to help with her tachycardia. Instructed on caffeine reduction, use of decaf beverages, increasing water intake, smoking cessation. Will update CBC and TSH. My hope is sinus tachycardia will improve with lifestyle modification. Plan to re-evaluate in 3 months, sooner if needed. (2) Smoker: Code(s): F17.200 - Nicotine dependence, unspecified, uncomplicated Category: Social Hx Plan: As above Plan I discussed with the patient the findings of sinus tachycardia and the importance of reducing caffeine intake and increasing hydration to manage her heart rate. We also reviewed her history of anemia and the need for a follow-up blood test to reassess her condition. I advised her on the potential long-term effects of a persistently elevated heart rate and the importance of lifestyle modifications. Orders: Orders Complete Blood Count Auto Diff Today R00.0 - Tachycardia, unspecified TSH reflex Free T4 Today R00.0 - Tachycardia, unspecified Comprehensive Met. Panel Today R00.0 - Tachycardia, unspecified Patient Instructions: - Reduce caffeine intake to one cup of coffee per day, switch to decaf if more is needed. - Increase fluid intake, aim for an additional 16-ounce water bottle daily. - Follow up with a blood test to check anemia status. - Monitor heart rate and report any new symptoms or changes. Patient was informed and verbally consented to the use of an ambient scribe for clinic note documentation during this visit. Visit time spent on chart review, interview, assessment, orders, documentation. Coding Level of Care Code Est Pt Level 3 (46123) Complex EM visit Add On G2211 Diagnoses Sinus tachycardia R00.0 Smoker F17.200 CPT Codes EKG - CPT: 01500-[id number], Complete ([id number]) Time Spent (min) 24
== END 2025-05-12 14:29 | disposition home or self-care (01) ==
LOC: HO.HCS 13:31
PROVIDERS: PCP Nurse Practitioner Primary Care; Visit Provider Nurse Practitioner Family
DX: R00.0 Tachycardia, unspecified (principal); F17.200 Nicotine dependence, unspecified, uncomplicated
CPT/HCPCS: 93010; 99213

== ENCOUNTER 2025-05-12 13:30 | Outpatient (REF) | payer MEDICAID, SELFPAY ==
[2025-05-12 14:41] LABS: MANUAL DIFF FLAG NO
[2025-05-12 15:09] LABS: Hematocrit 38.3 % (37.0-47.0); Hemoglobin 12.4 g/dl (12.0-16.0); Imm Gran Abs Auto 0.03 X10*3/uL (0.00-0.03); Imm Gran Pct Auto 0.8 % (0.0-0.4); Lymphocytes Absolute Auto 1.5 X10*3/uL (1.2-4.9); Mean Corpuscular HGB Conc 32.4 g/dl (31.0-35.0); Mean Corpuscular Hemoglobin 29.3 pg (27.0-33.0); Mean Corpuscular Volume 90.5 fL (80.0-98.0); NRBC Abs Auto 0.000 X10*3/uL (0.0-0.012); NRBC Pct Auto 0.0 /100WBC (0.0-0.2); Platelet Count 328 X10*3/uL (160-400); Red Blood Count 4.23 X10*6/uL (4.20-5.50); White Blood Count 3.9 X10*3/uL (4.8-10.8)
[2025-05-12 15:42] LABS: Alanine Aminotransferase 15 U/L (0-31); Albumin Level 4.2 g/dL (3.5-5.0); Alkaline Phosphatase 89 U/L (39-117); Anion Gap 11 (12-20); Aspartate Amino Transferase 22 U/L (5-31); Blood Urea Nitrogen 12 mg/dL (9-16); Calcium 9.1 mg/dL (8.4-10.2); Carbon Dioxide 25 mmol/L (22-29); Chloride 106 mmol/L (96-108); Estimated Glomerular Filt Rate > 60; Potassium 4.2 mmol/L (3.3-5.1); Sodium 138 mmol/L (135-145); Total Protein 7.5 g/dL (6.5-8.0)
== END 2025-05-12 13:31 | disposition home or self-care (01) ==
LOC: HO.LAB 13:30
PROVIDERS: PCP Nurse Practitioner Primary Care; Visit Provider Nurse Practitioner Family
DX: R00.0 Tachycardia, unspecified (principal); F17.200 Nicotine dependence, unspecified, uncomplicated
CPT/HCPCS: 36415; 80053; 84443; 85025; 93005; 99212

== ENCOUNTER 2025-06-04 11:28 | Outpatient (REF) | payer MEDICAID, SELFPAY ==
[2025-06-04 13:10] LABS: MANUAL DIFF FLAG NO
[2025-06-04 13:20] LABS: Hematocrit 37.9 % (37.0-47.0); Hemoglobin 12.4 g/dl (12.0-16.0); Imm Gran Abs Auto 0.02 X10*3/uL (0.00-0.03); Imm Gran Pct Auto 0.4 % (0.0-0.4); Lymphocytes Absolute Auto 1.3 X10*3/uL (1.2-4.9); Mean Corpuscular HGB Conc 32.7 g/dl (31.0-35.0); Mean Corpuscular Hemoglobin 29.2 pg (27.0-33.0); Mean Corpuscular Volume 89.4 fL (80.0-98.0); NRBC Abs Auto 0.000 X10*3/uL (0.0-0.012); NRBC Pct Auto 0.0 /100WBC (0.0-0.2); Platelet Count 328 X10*3/uL (160-400); Red Blood Count 4.24 X10*6/uL (4.20-5.50); White Blood Count 5.3 X10*3/uL (4.8-10.8)
[2025-06-04 13:54] LABS: Alanine Aminotransferase 18 U/L (0-31); Albumin Level 4.3 g/dL (3.5-5.0); Alkaline Phosphatase 100 U/L (39-117); Anion Gap 12 (12-20); Aspartate Amino Transferase 25 U/L (5-31); Blood Urea Nitrogen 13 mg/dL (9-16); Calcium 9.4 mg/dL (8.4-10.2); Carbon Dioxide 25 mmol/L (22-29); Chloride 105 mmol/L (96-108); Cholesterol 191 mg/dL (<200); Estimated Glomerular Filt Rate > 60; HDL Cholesterol 62 mg/dL (>40); Potassium 4.2 mmol/L (3.3-5.1); Sodium 138 mmol/L (135-145); Total Protein 7.5 g/dL (6.5-8.0); Triglycerides 92 mg/dL (<150)
[2025-06-04 14:12] LABS: Thyroid Stimulating Hormone 1.28 uIU/mL (0.32-4.0)
--- OUTSIDE RECORDS SUMMARY | 2025-06-04 14:27 | XMS_ITS | Clinical Summary ---
Author Organization [employer] Address [address] [place] [address] [address] [place] [address] Care Team Providers Care Email Administrator Name Role Phone Sofiya Corona DAVID Primary Care Provider José Miguel Mueller Unavailable Unavailable Allergies Active Allergy Reactions Criticality Noted Date Comments Benzoyl Peroxide 11/20/2012 Other reaction(s): local irritation Codeine High 02/16/2012 Other reaction(s): upset stomach Tretinoin 11/20/2012 Other reaction(s): local irritation Medications * This document contains information received from the source organization and may not represent a complete record from that organization. sodium chloride ([facility]) 0.65 % nasal sprayIndication s:Nasal congestion 1-2 sprays on each nostril every 2-3 hours as needed for nasal congestion 30 mL 02/14/20 23 Active lamoTRIgine (LaMICtal) 200 MG tabletIndicatio ns:Bipolar affective disorder, remission status unspecified (CMS/HCC) ([facility]) Take 1 tablet (200 mg) by mouth [...] chew. 56 capsule 2 03/18/20 25 Active montelukast (Singulair) 10 MG tabletIndicatio ns:Allergic rhinitis, unspecified seasonality, unspecified trigger TAKE 1 TABLET BY MOUTH EVERY DAY 90 tablet 1 04/08/20 25 Active benztropine (Cogentin) 0.5 MG tablet TAKE 1 TABLET BY MOUTH TWICE DAILY 60 tablet 04/18/20 25 Active QUEtiapine (SEROquel) 400 MG tabletIndicatio ns:Bipolar affective disorder, remission status unspecified (CMS/HCC) (HCC) Take 1 tablet (400 mg) by mouth 2 times daily. 60 tablet 05/14/20 25 Active clonazePAM (KlonoPIN) 1 MG tabletIndicatio ns:Bipolar affective disorder, remission status unspecified (CMS/HCC) (HCC) Take 1 tablet (1 mg) by mouth 2 times daily. Do not start before May 15, 2025. 56 tablet 05/15/20 25 Active QUEtiapine (SEROquel) 400 MG tabletIndicatio ns:Bipolar affective disorder, remission status unspecified (CMS/HCC) (HCC) TAKE 1 TABLET BY MOUTH TWICE DAILY 60 tablet 04/18/20 025 Discontinued(R eorder (will not trigger notification to Pharmacy)) clonazePAM (KlonoPIN) 1 MG tabletIndicatio ns:Bipolar affective disorder, remission status unspecified (CMS/HCC) (HCC) TAKE 1 TABLET BY MOUTH TWICE DAILY 56 tablet 04/18/20 025 Discontinued(R eorder (will not trigger notification to Pharmacy)) Active [...] retiring, she will be referred to new [facility] psychiatric prescriber. Patient is aware that these will be televisits, and that new provider will not be an employee of [facility]. Gives verbal consent to share protected [...] her care will be transferred to new [facility] psychiatric prescriber. Patient is aware that these will be televisits, and that new provider will not be an employee of [facility]. Gives verbal consent to share protected [...] organization. Date Type Department Care Team Description 05/13/2025 Refill [facility] [address] [place] [address] Sofiya Corona ANP Bipolar affective disorder, remission status unspecified (CMS/HCC) ([facility]) 05/12/2025 Orders Only GENERIC EXTERNAL DATA DEPARTMENT Provider, Generic External Data 04/18/2025 Telephone [facility] [address] [place] [address] Dora Henderson, JOSE 04/18/2025 Refill [facility] [address] [place] [address] Sofiya Corona ANP Bipolar affective disorder, remission status unspecified (CMS/HCC) ([facility]) 04/07/2025 Refill [facility] [address] [place] [address] Sofiya Corona ANP Allergic rhinitis, unspecified seasonality, unspecified trigger 03/31/2025 Telephone [facility] [address] [place] [address] Sofiya Corona ANP dec recall 03/20/2025 Refill [facility] [address] [place] [address] Sofiya Corona ANP Bipolar affective disorder, remission status unspecified (CMS/HCC) 03/18/2025 11:00 AM EDT Office Visit [facility] [address] [place] [phone] Sofiya Corona ANP Bipolar affective disorder, remission status unspecified (CMS/HCC) (Primary Dx); Gastroesophageal reflux disease, unspecified whether esophagitis present; Tobacco dependence; Tachycardia; Tremor of both hands; Low blood pressure reading; Class 1 obesity with body mass index (BMI) of 33.0 to 33.9 in adult, unspecified obesity type, unspecified whether serious comorbidity present 03/18/2025 Travel 03/17/2025 Telephone [facility] [address] [place] [phone] Sofiya Corona ANP chart prep 03/07/2025 2:00 PM EDT Office Visit [address] [phone] Michael Guido MD History of shingles (Primary Dx) 03/07/2025 Travel from Last 3 Months Immunizations Immunization Administration [...] Care Team (Late st Contact Info) Description 06/13/2025 11:30 AM EST Clinical Support [address] [address] Dora Henderson, RN [address] [place] [address] 06/17/2025 10:15 AM EST Office Visit [facility] [address] [place] [phone] Sofiya Corona, ANP [address] [place] [address] Health Maintenance Due Date Last Done Comments [...] Procedure Name Priority Date/Time Associated Diagnosis Comments TSH W/REFLEX TO FT4 Routine 05/12/2025 2 :39 PM EST COMPREHENSIVE METABOLIC PANEL Routine 05/12/2025 2:39 PM EST CBC WITH AUTO DIFFERENTIAL Routine 05/12/2025 2:39 PM EST LIPID PANEL, STANDARD Routine 04/20/2023 10:13 AM [...] Recently Relevant to Health Maintenance Results * TSH with Reflex to Free T4 (05/12/2025 2:39 PM EST) Pathologist [facility] TSH reflex Free T4 1.47 0.32 - 4.0 uIU/mL [facility] 05/12/2025 2:39 PM EST 05/12/2025 2:39 PM EST us Generic External Data Provider LAB BLOOD ORDERAB LES Final Result [facility] [address] [place] [address] [phone] * (ABNORMAL) CBC auto differential (05/12/2025 2:39 PM EST) Pathologist [facility] White Blood Count 3.9(L) 4.8 - 10.8 X10*3/uL [facility] Red Blood Count 4.23 4.20 - 5.50 X10*6/uL [facility] Hemoglobin 12.4 12.0 - 16.0 g/dl [facility] Hematocrit 38.3 37.0 - 47.0 % [facility] Mean Corpuscular Volume 90.5 80.0 - 98.0 fL [facility] Mean Corpuscular Hemoglobin 29.3 27.0 - 33.0 pg [facility] Mean Corpuscular HGB Conc 32.4 31.0 - 35.0 g/dl [facility] Red Cell Distribution Width 13.8 11.0 - 16.0 % [facility] Platelet Count 328 160 - 400 X10*3/uL [facility] Mean Platelet Volume 10.3 9.4 - 12.3 fL [facility] Neutrophils Percent Auto 44.8(L) 45 - 73 % [facility] Imm Gran Pct Auto 0.8(H) 0.0 - 0.4 % [facility] Lymphocytes Percent Auto 37.7 20 - 40 % [facility] Monocytes Percent Auto 12.1(H) 2 - 11 % [facility] Eosinophils Percent Auto 3.8 0 - 4 % [facility] Basophils Percent Auto 0.8 0 - 2 % [facility] NRBC Pct Auto 0.0 0.0 - 0.2 /100WBC [facility] Neutrophils Absolute Auto 1.8(L) 2.0 - 8.3 x10*3/uL [facility] Imm Gran Abs Auto 0.03 0.00 - 0.03 X10*3/uL [facility] Lymphocytes Absolute Auto 1.5 1.2 - 4.9 X10*3/uL [facility] Monocytes Absolute Auto 0.5 0.1 - 1.2 X10*3/uL [facility] Eosinophils Absolute Auto 0.2 0.0 - 0.4 X10*3/uL [facility] Basophils Absolute Auto 0.0 0.0 - 0.2 X10*3/uL [facility] NRBC Abs Auto 0.000 0.0 - 0.012 X10*3/uL [facility] 05/12/2025 2:39 PM EST 05/12/2025 2:39 PM EST us Generic External Data Provider LAB BLOOD ORDERAB LES Final Result [facility] [address] [place] [phone] * (ABNORMAL) Comprehensive Metabolic Panel (05/12/2025 2:39 PM EST) Sodium 138 135 - 145 mmol/L [facility] Potassium 4.2 3.3 - 5.1 mmol/L [facility] Chloride 106 96 - 108 mmol/L [facility] Carbon Dioxide 25 22 - 29 mmol/L [facility] Anion Gap 11(L) 12 - 20 [facility] Urea Nitrogen (BUN) 12 9 - 16 mg/dL [facility] Creatinine, Serum 0.67 0.5 - 1.4 mg/dL [facility] Estimated Glomerular Filt Rate >60 [facility] Comment:Chronic Kidney Disea se: Estimated GFR < 60 mL/min/1.24l1Ybwihx Kidney Disease: Estimated GFR < 15 mL/min/1.73m2 Glucose 96 60 - 115 mg/dL [facility] Calcium 9.1 8.4 - 10.2 mg/dL [facility] Bilirubin, Total 0.2 0.0 - 1.0 mg/dL [facility] Aspartate Amino Transferase 22 5 - 31 U/L [facility] Alanine Aminotransferase 15 0 - 31 U/L [facility] Total Protein 7.5 6.5 - 8.0 g/dL [facility] Albumin Level 4.2 3.5 - 5.0 g/dL [facility] Alkaline Phosphatase 89 39 - 117 U/L [facility] 05/12/2025 2:39 PM EST 05/12/2025 2:39 PM EST us Generic External Data Provider LAB BLOOD ORDERAB LES Final Result [facility] [address] [place] [phone] * (ABNORMAL) Lipid Panel, Standard (04/20/2023 10:13 AM EDT) Triglycerides 81 <150 mg/dL [facility] Comment:Desirable Triglyceri de: less than 150 mg/dLBorderline High Triglyceride 150-199 mg/dLHigh Triglyceride: 200-499 mg/dLVery High Triglyceride: greater than or equal to 5OO mg/dL Cholesterol 163 <200 mg/dL [facility] Comment:Desirable Cholestero l: less than 200 mg/dLBorderline High Cholesterol: 200-239 mg/dLHigh Cholesterol: greater than 239 mg/dL LDL Cholesterol Calculated 105(H) <100 mg/dL [facility] Comment:Desirable LDL: less than 100 mg/dLNear Optimal/Above Optimal LDL: 110- 129 mg/dLBorderline High LDL: 130-159 mg/dLHigh LDL: 160-189 mg/dLVery High LDL: greater than or equal to 190 mg/dL HDL Cholesterol 42 >40 mg/dL [facility] Comment:Desirable HDL: great er than 40 mg/dL Note: This HDL assay may give artificially low results in patients with liver disease. Blood Venous blood specimen / Unknown 04/20/2023 10:13 AM EDT 04/20/2023 11:19 AM EDT us Sofiya HERNANDEZ LAB BLOOD ORDERABLES Final Resul t Performing Organization Address [facility]/ZIP Co de Phone Number [facility] [address] [place] [phone] * HIV Ab/Ag (HAYLEE SUN) (03/17/2023 2:09 PM EDT) HIV AB/AG Nonreactive Nonreactive [facility] Comment:HIV-1 p24 Ag and/or HIV-1/HIV-2 Ab not detected.A test result that is nonreactive does not exclude thepossibility of exposure to or infection with HIV-1 and/orHIV-2. Nonreactive results in this assay for individualswith prior exposure to HIV-1 and/or HIV-2 may be due toantigen and antibody levels that are below the limit ofdetection of this assay.The [employer] HIV Ag/Ab Combo assay result andsupplemental assay results should be interpreted inconjunction with the patient's clinical presentation,history and other laboratory results. If the results areinconsistent with clinical evidence, additional testing issuggested to confirm the result. 03/17/2023 2:09 PM EDT 03/17/2023 4:01 PM EDT us Mandy Saini MD LAB BLOOD ORDERAB LES Final Result Performing Organization Address [facility]/ZIP Co de Phone Number [facility] [address] [place] [phone] * Hepatitis C Antibody with Reflex to HCV, RNA, Quantitative, Real-Time PCR (03/17/2023 2:09 PM EDT) Hepatitis C Antibody Nonreactive Nonreactive [facility] Comment:Antibodies to HCV no t detected; does not exclude early acuteHCV infection. Blood Venous blood specimen / Unknown 03/17/2023 2:09 PM EDT 03/17/2023 4:01 PM EDT us Mandy Saini MD LAB BLOOD ORDERAB LES Final Result [facility] [address] [place] [address] [phone] * THINPREP PAP (12/16/2020 11:33 AM [...] along with historic and current clinical information. Sour Bleaching Pleater : SEE COMMENT [facility] Comment: GSG, CT(ASCP) CT screening location: [place] [address] Interpretation/R esult: Negative for intraepithelial lesion or malignancy. [facility] LMP: 12/08/2020 [facility] Prev. BX: NONE GIVEN [facility] Prev. PAP: NONE GIVEN [facility] SOURCE: Cervix [facility] Statement Of Adequacy: SEE COMMENT [facility] Comment: Satisfactory for evaluation. Endocervical/transformation zone component absent. 12/16/2020 11:3 3 AM EDT us Mey Haile CNM LAB PATHOLOGY ORDERABLES Final Result [facility] [address] * HPV mRNA E6/E7 (12/16/2020 11:33 AM EDT) HPV nRNA E6/E7 Not Detected Not Detected [facility] Comment: Methodology: [employer] Consultant-Mediated Amplification This assay detects E6/E7 viral messenger RNA (mRNA) from 14 high-risk HPV types (16,18,31,33,35,39,45,51,52,56,58,59,66,68). The analytical performance characteristics of this assay have been determined by [employer]. The modifications have not been cleared or approved by the FDA. This assay has been validated pursuant to the CLIA regulations and is used for clinical purposes. For additional information, please refer to http://education.[employer]ang[employer]/faq/DYC759q5 (This link if provided for information/ educational purposes only.) 12/16/2020 11:3 3 AM EDT Mey Haile [facility] LAB BLOOD ORDERABLES Catherine simon Result [facility] [address] from Last 3 Months or Most Recently Relevant to Health Maintenance Insurance [facility] C3 Care Teams Email Administrator Relationship Specialty Start Date End Date Sofyia Corona ANP [address] [place] [address] PCP - General Family Medicine 11/26/19 José Miguel Mueller FNP [address] [place] [address] Nurse Practitioner Family Medicine 05/29/23
--- OUTSIDE RECORDS SUMMARY | 2025-06-04 14:27 | XMS_ITS | Encounter Summary ---
Author Organization [employer] Address [address] [facility] [address] [place] [address] Care Team Providers Care Behavioral Geneticist Name Role Phone Sofiya Corona Primary Care Provider [phone] José Miguel Mueller Unavailable Unavailable Reason for Visit * Reason Comments Med Refill Encounter Details Date Type Department Care Team ([facility] st Contact Info) Description 10/05/2024 Refill [facility] [address] [place] [address] Sofiya Corona ANP [address] [place] [address] Moderate persistent asthma without complication Social History [...] Description 06/13/2025 11:30 AM EST Clinical Support [address] [address] Dora Henderson, JOSE [address] [place] [address] 06/17/2025 10:15 AM EST Office Visit [address] [address] Sofiya Corona ANP [address] [place] [phone] documented as of this encounter Visit Diagnoses Diagnosis Moderate persistent asthma without complication documented in this encounter Additional Health Concerns Assessment Noted Time PHQ-9 Depression Total Score: 26 025 11:05 AM EDT documented as of this encounter Care Teams Behavioral Geneticist Relationship Specialty Start Date End Date Sofiya Corona ANP [address] [place] [phone] PCP - General Family Medicine 11/26/19 José Miguel Mueller FNP [address] [place] [phone] Nurse Practitioner Family Medicine 05/29/23 documented as of this encounter
--- OUTSIDE RECORDS SUMMARY | 2025-06-04 14:27 | XMS_ITS | Encounter Summary ---
Author Organization [employer] Address 75 [facility] 7 [place] [address] Care Team Providers Care Rag Production Worker Name Role Phone Sofiya Corona Primary Care Provider [phone] José Miguel Mueller Unavailable Unavailable Reason for Visit * Reason Onset Date Comments Med Refill 01/18/2024 Encounter Details Date Type Department Care Team ([facility] st Contact Info) Description 01/18/2024 Telephone [facility] [address] [place] [address] Sofiya Corona ANP 230 [place] [address] Med Refill Social History Tobacco Use Types [...] 1 MG tablet To be sent to: [facility] - [place], [place] - [address] [place] [address] documented in this encounter Plan of Treatment Upcoming Encounters Date Type Department Care Team ([facility] st Contact Info) Description 06/13/2025 11:30 AM EST Clinical Support [facility] [address] [place] [address] Dora Henderson RN 505 [place] [address] 06/17/2025 10:15 AM EST Office Visit [facility] [address] [place] [address] Sofiya Corona ANP [address] [place] [address] documented as of this encounter Visit Diagnoses Not on filedocumented in this encounter Additional Health Concerns Assessment Noted Time PHQ-9 Depression Total Score: 14 12/10/ 024 11:01 AM EDT documented as of this encounter Care Teams Rag Production Worker Relationship Specialty Start Date End Date Sofiya Corona ANP [address] [place] [address], [place] [address] PCP - General Family Medicine 11/26/19 José Miguel Mueller FNP [address] [place] [address] Nurse Practitioner Family Medicine 05/29/23 documented as of this encounter
--- OUTSIDE RECORDS SUMMARY | 2025-06-04 14:27 | XMS_ITS | Encounter Summary ---
Author Organization [employer] Address [address] [place] [address] 7 [place] [address] Care Team Providers Care Business Process Architect Name Role Phone Sofiya Corona DAVID Primary Care Provider José Miguel Mueller Unavailable Unavailable Reason for Visit * Reason Comments Med Refill Encounter Details Date Type Department Care Team (Late Contact Info) Description 11/10/2022 Refill [facility] [address] [place] [address] Cooper Horton FNP Nasal congestion Social History [...] Department Care Team (Late Contact Info) Description 06/13/2025 11:30 AM EST Clinical Support [facility] [address] [place] [phone] Dora Henderson RN 505 [place], [place] [phone] 06/17/2025 10:15 AM EST Office Visit [facility] 230 [place] [address] Sofiya Corona ANP 230 [place] [address] documented as of this encounter Visit Diagnoses Diagnosis Nasal congestion Other diseases of nasal cavity and sinuses documented in this encounter Additional Health Concerns Assessment Noted Time PHQ-9 Depression Total Score: 15 023 1:06 PM EDT documented as of this encounter Care Teams Business Process Architect Relationship Specialty Start Date End Date Sofiya Corona ANP 230 [place] [address] PCP - General Family Medicine 11/26/19 José Miguel Mueller FNP [address] [place] [address] Nurse Practitioner Family Medicine 05/29/23 documented as of this encounter
--- OUTSIDE RECORDS SUMMARY | 2025-06-04 14:27 | XMS_ITS | Encounter Summary ---
Author Organization [employer] Address [address] [place] [address] 7 [place] [address] Care Team Providers Care Software Reverse Engineer Name Role Phone Sofiya Corona Primary Care Provider [phone] José Miguel Mueller Unavailable Unavailable Reason for Visit * Reason Onset Date Comments Med Refill 03/15/2023 Encounter Details Date Type Department Care Team (Late st Contact Info) Description 03/15/2023 Telephone [facility] 230 [place] [address] Sofiya Corona ANP 230 [place] [address] Med Refill Social History Tobacco Use Types [...] Description 06/13/2025 11:30 AM EST Clinical Support [facility] [address] [place] [address] Dora Henderson RN 505 [place] [address] 06/17/2025 10:15 AM EST Office Visit [facility] [address] [place] [address] Sofiya Corona ANP 230 [place] [address] documented as of this encounter Visit Diagnoses Not on filedocumented in this encounter Additional Health Concerns Assessment Noted Time PHQ-9 Depression Total Score: 22 023 11:21 AM EDT documented as of this encounter Care Teams Software Reverse Engineer Relationship Specialty Start Date End Date Sofiya Corona ANP [address] [place] [address] PCP - General Family Medicine 11/26/19 José Miguel Mueller FNP [address] [place] [address] Nurse Practitioner Family Medicine 05/29/23 documented as of this encounter
--- OUTSIDE RECORDS SUMMARY | 2025-06-04 14:27 | XMS_ITS | Encounter Summary ---
Author Organization [employer] Address 75 [facility] 7t [place] [address] Care Team Providers Care Varnish Melter Name Role Phone Sofiya Corona Primary Care Provider [phone] José Miguel Mueller Unavailable Unavailable Encounter Details Date Type Department Care Team ([facility] Contact Info) Description 01/18/2024 Telephone [facility] 230 [place] [address] Sofiya Corona ANP 230 [place] [address] Social History Tobacco Use Types Packs/Day Years [...] AM EST Clinical Support [address] [address] Dora Henderson RN 505 [place] [address] 06/17/2025 10:15 AM EST Office Visit [address] [address] Sofiya Corona ANP [address] [place] [address] documented as of this encounter Visit Diagnoses Not on filedocumented in this encounter Additional Health Concerns Assessment Noted Time PHQ-9 Depression Total Score: 14 12/10/ 024 11:01 AM EDT documented as of this encounter Care Teams Varnish Melter Relationship Specialty Start Date End Date Sofiya Corona ANP [address] [place] [address] PCP - General Family Medicine 11/26/19 José Miguel Mueller FNP [address] [place] [address] Nurse Practitioner Family Medicine 05/29/23 documented as of this encounter
--- OUTSIDE RECORDS SUMMARY | 2025-06-04 14:27 | XMS_ITS | Encounter Summary ---
Author Organization [employer] Address 75 [facility] 7 [place] [address] Care Team Providers Care Investigator Name Role Phone Sofiya Corona Primary Care Provider José Miguel Mueller Unavailable Unavailable Reason for Visit * Reason Comments Med Refill Encounter Details Date Type Department Care Team ([facility] st Contact Info) Description 06/24/2024 Refill [facility] 230 [place] [address] Sofiya Corona ANP 230 [place] [address] Gastroesophageal reflux disease, unspecified whether esophagitis present [...] Description 06/13/2025 11:30 AM EST Clinical Support [address] [place] [address] [address] Dora Henderson, JOSE 505 [place] [address] 06/17/2025 10:15 AM EST Office Visit [address] [place] [address] [address] Sofiya Corona ANP [address] [place] [address] documented as of this encounter Visit Diagnoses Diagnosis Gastroesophageal reflux disease, unspecified whether esophagitis present documented in this encounter Additional Health Concerns Assessment Noted Time PHQ-9 Depression Total Score: 19 024 9:24 AM EDT documented as of this encounter Care Teams Investigator Relationship Specialty Start Date End Date Sofiya Corona ANP [address] [place] [address] PCP - General Family Medicine 11/26/19 José Miguel Mueller FNP [address] [place] [address] Nurse Practitioner Family Medicine 05/29/23 documented as of this encounter
--- OUTSIDE RECORDS SUMMARY | 2025-06-04 14:27 | XMS_ITS | Encounter Summary ---
Author Organization [employer] Address [address] [place] [address] 7 [place] [address] Care Team Providers Care Record Label Intern Name Role Phone Sofiya Corona Primary Care Provider [phone] José Miguel Mueller Unavailable Unavailable Encounter Details Date Type Department Care Team (Late st Contact Info) Description 09/01/2022 Orders Only [facility] 505 [place] [address] Trina West LPN Social History Tobacco Use [...] Description 06/13/2025 11:30 AM EST Clinical Support [facility] [address] [place] [address] Dora Henderson, JOSE 505 [place] [address] 06/17/2025 10:15 AM EST Office Visit [facility] [address] [place] [address] Sofiya Corona ANP [address] [place] [address] documented as of this encounter Procedures Procedure Name Priority Date/Time Associated Diagnosis Comments HIV ANTIBODY/ANTIGEN ([place] D[facility]) Routine 03/17/2023 2:09 PM EDT HEPATITIS B SURFACE ANTIGEN, EIA Routine 03/17/2023 2:09 PM EDT documented in this encounter Results * Hepatitis B surface antigen, EIA (03/17/2023 2:09 PM EDT) Hepatitis B Surface Ag Negative Negative [facility] 03/17/2023 2:09 PM EDT 03/17/2023 4:01 PM EDT us Mandy Saini MD LAB BLOOD ORDERAB LES Final Result [facility] [address] [place] [phone] * HIV Ab/Ag ([place] [facility]) (03/17/2023 2:09 PM EDT) HIV AB/AG Nonreactive Nonreactive [facility] Comment:HIV-1 p24 Ag and/or HIV-1/HIV-2 Ab not detected.A test result that is nonreactive does not exclude thepossibility of exposure to or infection with HIV-1 and/orHIV-2. Nonreactive results in this assay for individualswith prior exposure to HIV-1 and/or HIV-2 may be due toantigen and antibody levels that are below the limit ofdetection of this assay.[employer] HIV Ag/Ab Combo assay result andsupplemental assay results should be interpreted inconjunction with the patient's clinical presentation,history and other laboratory results. If the results areinconsistent with clinical evidence, additional testing issuggested to confirm the result. 03/17/2023 2:09 PM EDT 03/17/2023 4:01 PM EDT us Mandy Saini MD LAB BLOOD ORDERAB LES Final Result [facility] [address] [place] [address] [phone] documented in this encounter Visit Diagnoses Not on filedocumented in this encounter Additional Health Concerns Assessment Noted Time PHQ-9 Depression Total Score: 15 023 10:44 AM EST documented as of this encounter Care Teams Record Label Intern Relationship Specialty Start Date End Date Sofiya Corona ANP 230 [place] [address] PCP - General Family Medicine 11/26/19 José Miguel Mueller FNP [address] [place] [address] Nurse Practitioner Family Medicine 05/29/23 documented as of this encounter
--- OUTSIDE RECORDS SUMMARY | 2025-06-04 14:27 | XMS_ITS | Encounter Summary ---
Author Organization [employer] Address 75 [facility] 7t [place] [address] Care Team Providers Care Seo Strategist Name Role Phone Sofiya Corona Primary Care Provider [phone] José Miguel Mueller Unavailable Unavailable Reason for Visit * Reason Onset Date Comments Med Refill 04/17/2024 Encounter Details Date Type Department Care Team ([facility] st Contact Info) Description 04/17/2024 Telephone [facility] 230 [place] [address] Sofiya Corona ANP [address] [place] [address] Med Refill Social History Tobacco Use Types [...] 1 MG tablet To be sent to: [facility] - [place], [place] - [address] [place] [address] documented in this encounter Plan of Treatment Upcoming Encounters Date Type Department Care Team (Late st Contact Info) Description 06/13/2025 11:30 AM EST Clinical Support [facility] [address] [place] [address] Dora Henderson RN 505 [place] [address] 06/17/2025 10:15 AM EST Office Visit [facility] [address] [place] [address] Sofiya Corona ANP [address] [place] [address] documented as of this encounter Visit Diagnoses Not on filedocumented in this encounter Additional Health Concerns Assessment Noted Time PHQ-9 Depression Total Score: 19 01/21/ 024 9:24 AM EDT documented as of this encounter Care Teams Seo Strategist Relationship Specialty Start Date End Date Sofiya Corona ANP [address] [place] [address] [place] [address] PCP - General Family Medicine 11/26/19 José Miguel Mueller FNP [address] [place] [address] Nurse Practitioner Family Medicine 05/29/23 documented as of this encounter
--- OUTSIDE RECORDS SUMMARY | 2025-06-04 14:27 | XMS_ITS | Encounter Summary ---
Author Organization [employer] Address 75 [facility] 7 [place] [address] Care Team Providers Care Environmental Lawyer Name Role Phone Sofiya Corona Primary Care Provider José Miguel Mueller Unavailable Unavailable Reason for Visit * Reason Onset Date Comments Med Refill 12/03/2024 Encounter Details Date Type Department Care Team ([facility] st Contact Info) Description 12/03/2024 Telephone [facility] MEDICINE 230 [place] [address] Sofiya Corona ANP 230 [place] [address] Med Refill Social History Tobacco Use Types [...] MG/0.5ML solution auto-injector To be sent to: [facility] - [place], [place] - [address] [place] [address] documented in this encounter Plan of Treatment Upcoming Encounters Date Type Department Care Team ([facility] st Contact Info) Description 06/13/2025 11:30 AM EST Clinical Support [facility]INE [address] [place] [address] Dora Henderson RN 505 [place] [address] 06/17/2025 10:15 AM EST Office Visit [facility] [address] [place] [address] Sofiya Corona ANP 230 [place] [address] documented as of this encounter Visit Diagnoses Not on filedocumented in this encounter Additional Health Concerns Assessment Noted Time PHQ-9 Depression Total Score: 26 025 11:05 AM EDT documented as of this encounter Care Teams Environmental Lawyer Relationship Specialty Start Date End Date Sofiya Corona ANP [address] [place] [address] PCP - General Family Medicine 11/26/19 José Miguel Mueller FNP [address] [place] [address] Nurse Practitioner Family Medicine 05/29/23 documented as of this encounter
--- OUTSIDE RECORDS SUMMARY | 2025-06-04 14:27 | XMS_ITS | Encounter Summary ---
Author Organization [employer] Address 75 [facility] 7 [place] [address] Care Team Providers Care Personal Injury Law Specialist Name Role Phone Sofiya Corona Primary Care Provider José Miguel Mueller Unavailable Unavailable Reason for Visit * Reason Onset Date Comments Med Refill 12/03/2024 Encounter Details Date Type Department Care Team ([facility] st Contact Info) Description 12/03/2024 Telephone [facility] 230 [place] [address] Sofiya Corona ANP 230 [place] [address] Med Refill Social History Tobacco Use Types [...] 1 MG tablet To be sent to: [facility] documented in this encounter Plan of Treatment Upcoming Encounters Date Type Department Care Team (Late st Contact Info) Description 06/13/2025 11:30 AM EST Clinical Support [address] [address] Dora Henderson RN 505 [place] [address] 06/17/2025 10:15 AM EST Office Visit [address] [address] Sofiya Corona ANP [address] [place] [address] documented as of this encounter Visit Diagnoses Not on filedocumented in this encounter Additional Health Concerns Assessment Noted Time PHQ-9 Depression Total Score: 26 025 11:05 AM EDT documented as of this encounter Care Teams Personal Injury Law Specialist Relationship Specialty Start Date End Date Sofiya Corona ANP [address] [place] [address] PCP - General Family Medicine 11/26/19 José Miguel Mueller FNP [address] [place] [address] Nurse Practitioner Family Medicine 05/29/23 documented as of this encounter
== END 2025-06-04 11:29 | disposition home or self-care (01) ==
LOC: HO.HHCL 11:28
PROVIDERS: PCP Nurse Practitioner Primary Care; Visit Provider Dietitian, Registered
DX: R00.0 Tachycardia, unspecified (principal)
CPT/HCPCS: 36415; 80053; 80061; 83036; 84443; 85025